=== PATIENT | female | born 1960 | race Caucasian/White ===

== ENCOUNTER → 2016-09-10 11:00 | Day surgery (SDC) | payer BC ==
[~2016-09-10 11:00] MED LIST: Buffered Lidocaine 1% SYR 3ML* 3 ML/SYR SYRINGE INTRADERM ONE; Buffered Lidocaine 1% SYR 3ML* 3 ML/SYR SYRINGE ONE; Dexamethasone TAB* 4 MG ONE; Dexamethasone TAB* 4 MG PO ONE; Famotidine IV* 10 MG/ML 2 ML (20 mg) IV ONE; Famotidine IV* 10 MG/ML 2 ML (20 mg) ONE; HYDROcodone/ACETAMIN 5-325 MG* 1 TAB PO PRN; Lidocaine 2% MPF* 2 ML VIAL ONE; Midazolam* 1 MG/ML 2 ML VIAL (2 MG) ONE; PROCHLORPERAZINE INJ 5 MG/ML 2 ML VIAL IV PRN; Propofol* 10 MG/ML 20 ML BTL IV PUSH ONE; fentaNYL* 50 MCG/ML 2 ML VIAL (100 MCG VIAL) IV PRN; fentaNYL* 50 MCG/ML 2 ML VIAL (100 MCG VIAL) ONE
[2016-09-10 16:21] VITALS: BP 115/86
--- NOTE | 2016-09-11 04:45 | PRO ---
BRONCHOSCOPY REPORT: DATE OF PROCEDURE: 09/10/16 - [facility] PROCEDURE PERFORMED: Bronchoscopy and bronchoalveolar lavage. PREPROCEDURAL DIAGNOSES: Cough, pulmonary secretions, vocal cord paralysis. ANESTHESIA: General anesthesia, LMA. DESCRIPTION OF PROCEDURE: Informed consent was obtained from the patient prior to the procedure after all the risks and benefits of the procedure were thoroughly explained. Appropriate time-out was agreed on by attending staff prior to the procedure. Flexible Pentax bronchoscope was utilized for the procedure. Bronchoscope was inserted through the LMA and vocal cords were inspected. Significant amount of redundant tissue was noted around the vocal cords. There was slit-like opening of the vocal cords. Bronchoscope was then inserted through the vocal cords. The patient noted to have thick secretions within the airway. The patient had audible stridor during the procedure. The patient received Decadron during the procedure. Bronchoalveolar lavage was obtained from the right middle lobe. Thick white secretions were noted and were suctioned out. BAL was sent for microbiological testing. The patient tolerated the procedure well. The patient was seen in recovery in optimal condition. [id number]/[facility] #: [id number] [facility]
== END | disposition home or self-care (01) ==
LOC: MERGE 11:00 → OR 11:00
PROVIDERS: ATTEND Internal Medicine
DX: R05 Cough (principal); J98.8 Other specified respiratory disorders; G47.33 Obstructive sleep apnea (adult) (pediatric); J38.00 Paralysis of vocal cords and larynx, unspecified; Z87.891 Personal history of nicotine dependence
CPT/HCPCS: 87070; 87077; 87102; 87205; J2250; J2704; J3010; J8540

== ENCOUNTER 2016-10-18 16:46 | Emergency (ER) | payer BC ==
[2016-10-18 18:14] LABS: Hematocrit 40 % (35-47); Mean Corpuscular HGB Conc 32 g/dl (31-36); Mean Corpuscular Hemoglobin 27 pg (27-31); Mean Corpuscular Volume 84 fL (80-97); Mean Platelet Volume 8 um3 (7.4-10.4); Red Blood Count 4.76 10^6/ul (4.0-5.4); Red Cell Distribution Width 14 % (10.5-15)
[2016-10-18 18:25] LABS: Albumin 4.5 g/dL (3.2-5.2); BUN/Creatinine Ratio 18.8 (8-20); C Reactive Protein 8.38 mg/L (< 5.00); Calcium 9.7 mg/dL (8.6-10.3); EGFR African American 88.3 (>60); EGFR Non-African American 68.7 (>60); Potassium 3.7 mmol/L (3.5-5.0); Total Bilirubin 0.5 mg/dL (0.2-1.0); Total Protein 7.5 g/dL (6.4-8.9)
[2016-10-18] MEDS ORDERED: Iohexol 300* (CONTRAST) 10 ML SDV IV ONE (20:26)
--- NOTE | 2016-10-18 20:56 | RAD ---
HISTORY: Postop stridor COMPARISONS: April 20, 2015 CTs of the neck and chest TECHNIQUE: Multiple contiguous axial CT scans were obtained of the neck after the administration of nonionic intravenous contrast, with coronal and sagittal multiplanar reformations. FINDINGS: BRAIN AND ORBITS: The visualized brain and orbits are normal. PARANASAL SINUSES: The visualized paranasal sinuses are clear. SALIVARY GLANDS: The parotid glands, submandibular glands, sublingual glands are normal. NASAL CAVITY/NASOPHARYNX: The nasal cavity and nasopharynx are normal. ORAL CAVITY/OROPHARYNX: The oral cavity is obscured by streak artifact from dental amalgam. The visualized oral cavity and oropharynx are unremarkable. LARYNGEAL APPARATUS/HYPOPHARYNX: The patient is appears to be status post thyroplasty, with a prosthesis along the left thyroid cartilage. UPPER AIRWAY/UPPER ESOPHAGUS: In the expected location of the left thyroid lobe, there is heterogeneously low-attenuation soft tissue density material measuring approximately 3 x 4.5 x 5.2 cm in size. This measures approximately 50 Hounsfield units in attenuation. There is mass effect upon the subglottic airway which is narrowed compared to the 2015 examination. LUNG APICES: There is a 0.9 cm nodule of the right upper lobe on axial image 1. This is incompletely included within the [id number] the current examination. This is not clearly visualized on the previous CT examination THYROID GLAND: As noted above, there is heterogeneous low-attenuation tissue within the left thyroid fossa LYMPH NODES: There is a 1.1 cm short axis lymph node at level 4 on the right on axial image 36. VASCULATURE: The vasculature is unremarkable. BONES AND SOFT TISSUES: Degenerative changes are noted of the spine. There is subcutaneous emphysema with postsurgical change along the anterior neck OTHER: None. IMPRESSION: 1. THERE IS POST SURGICAL CHANGE TO THE THYROID CARTILAGE, WITH HETEROGENEOUSLY LOW ATTENUATION SOFT TISSUE WITHIN THE LEFT THYROID FOSSA WITH MASS EFFECT UPON THE SUBGLOTTIC AIRWAY WHICH IS NARROWED. GIVEN THE HISTORY OF STRIDOR AND RECENT SURGERY, THIS CONCERNING FOR HEMATOMA WITH MASS EFFECT UPON THE AIRWAY. PRELIMINARY FINDINGS WERE DISCUSSED WITH DR. NGUYEN IN THE EMERGENCY DEPARTMENT AT APPROXIMATELY 8:50 PM ON OCTOBER 18, 2016. 2. THERE IS A 0.9 CM NODULE OF THE RIGHT LUNG APEX. THIS IS INCOMPLETELY INCLUDED WITHIN THE [id number] THE CURRENT EXAMINATION. THE DIFFERENTIAL INCLUDES NEOPLASM. RECOMMEND CORRELATION WITH DEDICATED IMAGING OF THE CHEST IN THE NONACUTE SETTING. 3. ADDITIONALLY, THERE IS A SLIGHTLY ENLARGED LEVEL 4 LYMPH NODE ON THE RIGHT.
[2016-10-18 21:18] VITALS: BP 150/98
--- NOTE | 2016-10-18 22:12 | ED ---
Jen Barbosa Anna, scribed for Yasir Easton MD on 10/18/16 at 1800 . Shortness of Breath - HPI Summary HPI Summary: Patient is a 56 y/o female coming to [facility] presenting with gradual onset of constant, worsening SOB that began this afternoon. She had a tracheal stenosis three days ago and has had SOB as a result of that, but the SOB was worse this afternoon. Her recent test showed she was 60% blocked. The SOB is exacerbated by lying down, which was not the case prior to today. 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 Onset/Duration: Gradual Onset, Lasting Days, Worse Since - today - Allergy/Home Medications Allergies/Adverse Reactions: Allergies Allergy/AdvReac Type Severity Reaction Status Date / Time No Known Allergies Allergy Verified 09/10/16 11:19 PMH/Surg Hx/FS Hx/Imm Hx Endocrine/Hematology History: Reports: Hx Anemia - HISTORY OF IN THE PAST Denies: Hx Diabetes, Hx Thyroid Disease Cardiovascular History: Reports: Hx Congestive Heart Failure Denies: Hx Hypertension, Hx Pacemaker/ICD, Other Cardiovascular Problems/ Disorders Respiratory History: Reports: Hx Sleep Apnea Denies: Hx Asthma, Hx Chronic Obstructive Pulmonary Disease (COPD), Other Respiratory Problems/Disorders GI History: Denies: Hx Ulcer, Other GI Disorders History: Denies: Hx Renal Disease Musculoskeletal History: Denies: Other Musculoskeletal History Sensory History: Denies: Hx Contacts or Glasses, Hx Hearing Aid Opthamlomology History: Denies: Hx Contacts or Glasses Neurological History: Denies: Other Neuro Impairments/Disorders Psychiatric History: Reports: Hx Anxiety - ON MEDS, Hx Depression - ON MEDS Denies: Hx Panic Disorder - Cancer History Hx Chemotherapy: No Hx Radiation Therapy: No - Surgical History Surgery Procedure, Year, and Place: [facility] [place]. tubal , 1989, [facility]. tubal ligation, 1983 , [facility] [place]. benign breast biopsy left, 1992, [facility]. VOCAL CHORD SURGERY 12/12/15 & - THROPLASTY W/ GORE PATCH. Hx Anesthesia Reactions: No Infectious Disease History: No Infectious Disease History: Denies: Hx Clostridium Difficile, Hx Hepatitis, Hx Human Immunodeficiency Virus (HIV), Hx of Known/Suspected MRSA, Hx Shingles, Hx Tuberculosis, History Other Infectious Disease, Traveled Outside the [place] in Last 30 Days - Family History Known Family History: Positive: Hypertension, Other - breast CA - Social History Lives: With Family Alcohol Use: Rare Alcohol Amount: 1 PER MONTH Substance Use Type: Reports: None Smoking Status (MU): Former Smoker Type: Cigarettes Amount Used/How Often: PACK A DAY Have You Smoked in the Last Year: No Review of Systems Positive: Shortness Of Breath Psychological: Normal All Other Systems Reviewed And Are Negative: Yes Physical Exam Triage Information Reviewed: Yes Vital Signs On Initial Exam: Initial Vitals Temp Pulse Resp BP Pulse Ox 98.2 F 68 24 169/94 98 10/18/16 16:49 10/18/16 16:49 10/18/16 16:49 10/18/16 16:49 10/18/16 16:49 Vital Signs Reviewed: Yes Appearance: Positive: Well-Appearing, No Pain Distress Skin: Positive: Warm, Skin Color Reflects Adequate Perfusion, Dry Head/Face: Positive: Normal Head/Face Inspection Eyes: Positive: Normal ENT: Positive: Normal ENT inspection Neck: Positive: Supple, Nontender Respiratory/Lung Sounds: Positive: Clear to Auscultation, Breath Sounds Present Cardiovascular: Positive: RRR Abdomen Description: Positive: Nontender, Soft Bowel Sounds: Positive: Present Musculoskeletal: Positive: Normal Neurological: Positive: Normal Psychiatric: Positive: Affect/Mood Appropriate - Jamison Coma Scale Coma Scale Total: 15 Diagnostics - Vital Signs Vital Signs Temp Pulse Resp BP Pulse Ox 10/18/16 17:00 74 159/87 95 10/18/16 16:57 74 95 10/18/16 16:56 158/89 10/18/16 16:49 98.2 F 68 24 169/94 98 - Laboratory Lab Results: Lab Results 10/18/16 10/18/16 Range/Units 16:55 16:55 WBC 8.0 (3.5-10.8) 10^3/ul RBC 4.76 (4.0-5.4) 10^6/ul Hgb 13.0 (12.0-16.0) g/dl Hct 40 (35-47) % MCV 84 (80-97) fL MCH 27 (27-31) pg MCHC 32 (31-36) g/dl RDW 14 (10.5-15) % Plt Count 317 (150-450) 10^3/ul MPV 8 (7.4-10.4) um3 Neut % (Auto) 66.4 (38-83) % Lymph % (Auto) 23.7 L (25-47) % [place] % (Auto) 8.6 (1-9) % Eos % (Auto) 0.7 (0-6) % Baso % (Auto) 0.6 (0-2) % Absolute Neuts (auto) 5.3 (1.5-7.7) 10^3/ul Absolute Lymphs (auto) 1.9 (1.0-4.8) 10^3/ul Absolute Monos (auto) 0.7 (0-0.8) 10^3/ul Absolute Eos (auto) 0.1 (0-0.6) 10^3/ul Absolute Basos (auto) 0 (0-0.2) 10^3/ul Absolute Nucleated RBC 0.01 10^3/ul Nucleated RBC % 0.1 Sodium 135 (133-145) mmol/L Potassium 3.7 (3.5-5.0) mmol/L Chloride 97 L (101-111) mmol/L Carbon Dioxide 29 (22-32) mmol/L Anion Gap 9 (2-11) mmol/L BUN 16 (6-24) mg/dL Creatinine 0.85 (0.51-0.95) mg/dL Est GFR ( Amer) 88.3 (>60) Est GFR (Non-Af Amer) 68.7 (>60) BUN/Creatinine Ratio 18.8 (8-20) Glucose 76 (70-100) mg/dL Calcium 9.7 (8.6-10.3) mg/dL Total Bilirubin 0.50 (0.2-1.0) mg/dL AST 13 (13-39) U/L ALT 16 (7-52) U/L Alkaline Phosphatase 64 (34-104) U/L C-Reactive Protein 8.38 H (< 5.00) mg/L Total Protein 7.5 (6.4-8.9) g/dL Albumin 4.5 (3.2-5.2) g/dL Globulin 3.0 (2-4) g/dL Albumin/Globulin Ratio 1.5 (1-3) Result Diagrams: 10/18/16 16:55 10/18/16 16:55 Lab Statement: Any lab studies that have been ordered have been reviewed, and results considered in the medical decision making process. - CT CT Soft Tissue Neck CT Interpretation: Positive (See Comments) CT Interpretation Completed By: Radiologist - IMPRESSION: 1. THERE IS POST SURGICAL CHANGE TO THE THYROID CARTILAGE, WITH HETEROGENEOUSLY LOW ATTENUATION SOFT TISSUE WITHIN THE LEFT THYROID FOSSA WITH MASS EFFECT UPON THE SUBGLOTTIC AIRWAY WHICH IS NARROWED. GIVEN THE HISTORY OF STRIDOR AND RECENT SURGERY, THIS CONCERNING FOR HEMATOMA WITH MASS EFFECT UPON THE AIRWAY. PRELIMINARY FINDINGS WERE DISCUSSED WITH DR. EASTON IN THE EMERGENCY DEPARTMENT AT APPROXIMATELY 8:50 PM ON OCTOBER 18, 2016. 2. THERE IS A 0.9 CM NODULE OF THE RIGHT LUNG APEX. THIS IS INCOMPLETELY INCLUDED WITHIN THE [id number] THE CURRENT EXAMINATION. THE DIFFERENTIAL INCLUDES NEOPLASM. RECOMMEND CORRELATION WITH DEDICATED IMAGING OF THE CHEST IN THE NONACUTE SETTING. 3. ADDITIONALLY, THERE IS A SLIGHTLY ENLARGED LEVEL 4 LYMPH NODE ON THE RIGHT. Re-Evaluation - Re-Evaluation First Eval Re-Evaluation Time: 18:08 Comment: At this time, patient is lying down comfortably and able to speak in full sentences. Course/Dx - Course Assessment/Plan: Patient is a 56 y/o female coming to [facility] presenting with gradual onset of constant, worsening SOB that began this afternoon. She had a tracheal stenosis three days ago and has had SOB as a result of that, but the SOB was worse this afternoon. Her recent test showed she was 60% blocked. The SOB is exacerbated by lying down, which was not the case prior to today. Upon re -evaluation, patient is lying down comfortably and able to speak in complete sentences. Labs reveal C-reactive protein of 8.38. Records requested from [facility]. CT of soft tissue of neck reveals post-surgical change to the thyroid cartilage, with heterogenously low attenuation soft tissue within the left thyroid fossa with mass effect upon the subglottic airway which is narrowed. This is concerning for hematoma with mass effect upon the airway. Discussed care with Dr. Hopkins, who recommends that patient be transferred to a higher level of care. Dr. Tran from [facility] accepts the patient for transfer. - Diagnoses Provider Diagnoses: Postoperative subglottic stenosis - Physician Notifications Discussed Care of Patient With: Dr. Hopkins (ENT) at 2051. The patient should be transferred to a higher level of care. Dr. Tran ([facility]) at 2110. Accepts patient for transfer. Discharge - Discharge Plan Condition: Stable Disposition: TRANS HIGHER LVL OF CARE FAC Referrals: Bhavya Chilel MD [Primary Care Provider] - The documentation as recorded by the Jen bass Anna accurately reflects the service I personally performed and the decisions made by me, Yasir Easton MD.
== END 2016-10-18 22:27 | disposition short-term general hospital (02) ==
LOC: ED 16:46 → MERGE 16:46 → ED 22:27
DX: J95.5 Postprocedural subglottic stenosis (principal); R06.02 Shortness of breath; Z87.891 Personal history of nicotine dependence
CPT/HCPCS: 36415; 70491; 80053; 85025; 86140; 99285; Q9967

== ENCOUNTER 2016-11-25 12:13 | Emergency (ER) | payer BC ==
[2016-11-25] MEDS ORDERED: Aspirin Low Dose CHEW TAB* 81 MG PO ONE (13:13)
[2016-11-25] MEDS ORDERED: Ondansetron INJ* 2 MG/ML VIAL IV ONE (13:14)
[2016-11-25] MEDS ORDERED: NS 0.9% 1000 ML* 1,000 ML IV ONE (13:14)
[2016-11-25] MEDS ORDERED: HYDROmorphone* 1 MG/ML 1 ML SYR IV ONE (13:14)
[2016-11-25 13:22] LABS: Hematocrit 36 % (35-47); Hemoglobin 11.9 g/dl (12.0-16.0); Mean Corpuscular HGB Conc 33 g/dl (31-36); Mean Corpuscular Hemoglobin 27 pg (27-31); Mean Corpuscular Volume 83 fL (80-97); Mean Platelet Volume 8 um3 (7.4-10.4); Red Blood Count 4.33 10^6/ul (4.0-5.4); Red Cell Distribution Width 14 % (10.5-15); White Blood Count 5.3 10^3/ul (3.5-10.8)
[2016-11-25 13:37] LABS: Albumin 4.2 g/dL (3.2-5.2); BUN/Creatinine Ratio 14.9 (8-20); Calcium 9.3 mg/dL (8.6-10.3); EGFR African American 103.7 (>60); EGFR Non-African American 80.6 (>60); Globulin 3.1 g/dL (2-4); Potassium 3.5 mmol/L (3.5-5.0); Total Bilirubin 0.6 mg/dL (0.2-1.0); Total Protein 7.3 g/dL (6.4-8.9)
[2016-11-25] MEDS ORDERED: Iohexol 350* (CONTRAST) 500 ML MDV IV ONE (14:10)
--- NOTE | 2016-11-25 14:50 | RAD ---
HISTORY: Chest pain COMPARISONS: April 20, 2016 TECHNIQUE: Multiple contiguous axial CT scans of the chest were obtained after the administration of nonionic intravenous contrast, timed to the pulmonary arterial phase of contrast enhancement.. Coronal and sagittal multiplanar reformations are also submitted for review. FINDINGS: NECK AND THYROID: A tracheostomy is noted CHEST WALL: There is no lower cervical, axillary, or supraclavicular lymphadenopathy by size criteria. HEART AND PERICARDIUM: The heart is unremarkable. AORTA AND PULMONARY VASCULATURE: There is no pulmonary arterial filling defect to suggest pulmonary embolism. There is no linear filling defect within the aorta to suggest aortic dissection. MEDIASTINUM: There are enlarged subcarinal lymph nodes. MAKAYLA: There are mildly enlarged bilateral hilar lymph nodes AIRWAY AND ESOPHAGUS: As noted above, a tracheostomy is present. LUNG PARENCHYMA: There are multiple pulmonary parenchymal nodules diffusely measuring up to 1.6 cm in size. PLEURA: There is moderate right and small left pleural effusion. UPPER ABDOMEN: The upper abdomen is unremarkable. BONES AND SOFT TISSUES: Degenerative changes are noted OTHER: None. IMPRESSION: 1. NO PULMONARY ARTERIAL FILLING DEFECT TO SUGGEST PULMONARY WAS OBTAINED. 2. THERE ARE MULTIPLE PULMONARY PARENCHYMAL NODULES, WITH HILAR AND MEDIASTINAL LYMPHADENOPATHY. THE APPEARANCE IS MOST CONSISTENT WITH METASTATIC NEOPLASM TO THE LUNGS. 3. THERE ARE BILATERAL, RIGHT GREATER THAN LEFT, PLEURAL EFFUSIONS
[2016-11-25 16:31] VITALS: BP 156/82
--- NOTE | 2016-11-25 18:26 | ED ---
Jen Barbosa Anna, scribed for Yasir Easton MD on 11/25/16 at 1315 . HPI Chest Pain - HPI Summary HPI Summary: Patient is a 56 y/o female coming to [facility] presenting with the sudden onset of constant left-sided chest pain that began last night. The pain starts around her left shoulder blade and extends around her front. The pain is exacerbated by deep breaths, coughing, and exertion. She has SOB at baseline, but it is worse today. She had one episode of emesis last night. She denies fever. Her visiting nurse came today and recommended she come to the ED because of her fast HR. 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 - History of Current Complaint Chief Complaint: EDChestPainROMI Time Seen by Provider: 11/25/16 13:03 Hx Obtained From: Patient Pain Intensity: 4 Pain Scale Used: 0-10 Numeric - Allergy/Home Medications Allergies/Adverse Reactions: Allergies Allergy/AdvReac Type Severity Reaction Status Date / Time No Known Allergies Allergy Verified 09/10/16 11:19 PMH/Surg Hx/FS Hx/Imm Hx Endocrine/Hematology History: Reports: Hx Anemia - HISTORY OF IN THE PAST Denies: Hx Diabetes, Hx Thyroid Disease Cardiovascular History: Reports: Hx Congestive Heart Failure Denies: Hx Hypertension, Hx Pacemaker/ICD, Other Cardiovascular Problems/ Disorders Respiratory History: Reports: Hx Sleep Apnea Denies: Hx Asthma, Hx Chronic Obstructive Pulmonary Disease (COPD), Other Respiratory Problems/Disorders GI History: Denies: Hx Ulcer, Other GI Disorders History: Denies: Hx Renal Disease Musculoskeletal History: Denies: Other Musculoskeletal History Sensory History: Denies: Hx Contacts or Glasses, Hx Hearing Aid Opthamlomology History: Denies: Hx Contacts or Glasses Neurological History: Denies: Other Neuro Impairments/Disorders Psychiatric History: Reports: Hx Anxiety - ON MEDS, Hx Depression - ON MEDS Denies: Hx Panic Disorder - Cancer History Cancer Type, Location and Year: [place] Thyroid tumor Hx Chemotherapy: No Hx Radiation Therapy: No - Surgical History Surgery Procedure, Year, and Place: [facility], [facility]. tubal , 1989, [facility]. tubal ligation, 1983 , [facility]. benign breast biopsy left, 1992, [facility]. VOCAL CHORD SURGERY 12/12/15 & - THROPLASTY W/ GORE PATCH. Hx Anesthesia Reactions: No Infectious Disease History: No Infectious Disease History: Denies: Hx Clostridium Difficile, Hx Hepatitis, Hx Human Immunodeficiency Virus (HIV), Hx of Known/Suspected MRSA, Hx Shingles, Hx Tuberculosis, History Other Infectious Disease, Traveled Outside the [place] in Last 30 Days - Family History Known Family History: Positive: Unknown, Hypertension, Other - breast CA - Social History Alcohol Use: Rare Alcohol Amount: 1 PER MONTH Substance Use Type: Reports: None Smoking Status (MU): Former Smoker Type: Cigarettes Amount Used/How Often: PACK A DAY Have You Smoked in the Last Year: No Review of Systems Positive: Chest Pain Positive: Shortness Of Breath All Other Systems Reviewed And Are Negative: Yes Physical Exam Triage Information Reviewed: Yes Vital Signs On Initial Exam: Initial Vitals Temp Pulse Resp BP Pulse Ox 97.6 F 124 16 164/84 97 11/25/16 12:17 11/25/16 12:17 11/25/16 12:17 11/25/16 12:17 11/25/16 12:17 Vital Signs Reviewed: Yes Appearance: Positive: Well-Appearing, No Pain Distress Skin: Positive: Warm, Skin Color Reflects Adequate Perfusion, Dry Head/Face: Positive: Normal Head/Face Inspection Eyes: Positive: Normal ENT: Positive: Normal ENT inspection Neck: Positive: Supple, Nontender Respiratory/Lung Sounds: Positive: Breath Sounds Present, Other - Crackles in left upper lung field, some upper airway sounds that cleared when she coughed Cardiovascular: Positive: Tachycardia Abdomen Description: Positive: Nontender, Soft Bowel Sounds: Positive: Present Musculoskeletal: Positive: Normal Neurological: Positive: Normal Psychiatric: Positive: Affect/Mood Appropriate - Jamison Coma Scale Coma Scale Total: 15 Diagnostics - Vital Signs Vital Signs Temp Pulse Resp BP Pulse Ox 11/25/16 12:17 97.6 F 124 16 164/84 97 - Laboratory Lab Results: Lab Results 11/25/16 11/25/16 11/25/16 Range/Units 12:35 12:35 12:35 WBC 5.3 (3.5-10.8) 10^3/ul RBC 4.33 (4.0-5.4) 10^6/ul Hgb 11.9 L (12.0-16.0) g/dl Hct 36 (35-47) % MCV 83 (80-97) fL MCH 27 (27-31) pg MCHC 33 (31-36) g/dl RDW 14 (10.5-15) % Plt Count 198 (150-450) 10^3/ul MPV 8 (7.4-10.4) um3 Neut % (Auto) 79.4 (38-83) % Lymph % (Auto) 12.0 L (25-47) % [place] % (Auto) 7.7 (1-9) % Eos % (Auto) 0.4 (0-6) % Baso % (Auto) 0.5 (0-2) % Absolute Neuts (auto) 4.2 (1.5-7.7) 10^3/ul Absolute Lymphs (auto) 0.6 L (1.0-4.8) 10^3/ul Absolute Monos (auto) 0.4 (0-0.8) 10^3/ul Absolute Eos (auto) 0 (0-0.6) 10^3/ul Absolute Basos (auto) 0 (0-0.2) 10^3/ul Absolute Nucleated RBC 0 10^3/ul Nucleated RBC % 0 INR (Anticoag Therapy) 1.01 (0.89-1.11) Sodium 136 (133-145) mmol/L Potassium 3.5 (3.5-5.0) mmol/L Chloride 99 L (101-111) mmol/L Carbon Dioxide 27 (22-32) mmol/L Anion Gap 10 (2-11) mmol/L BUN 11 (6-24) mg/dL Creatinine 0.74 (0.51-0.95) mg/dL Est GFR ( Amer) 103.7 (>60) Est GFR (Non-Af Amer) 80.6 (>60) BUN/Creatinine Ratio 14.9 (8-20) Glucose 141 H (70-100) mg/dL Lactic Acid (0.5-2.0) mmol/L Calcium 9.3 (8.6-10.3) mg/dL Total Bilirubin 0.60 (0.2-1.0) mg/dL AST 15 (13-39) U/L ALT 22 (7-52) U/L Alkaline Phosphatase 100 (34-104) U/L Troponin I 0.00 (<0.04) ng/mL Total Protein 7.3 (6.4-8.9) g/dL Albumin 4.2 (3.2-5.2) g/dL Globulin 3.1 (2-4) g/dL Albumin/Globulin Ratio 1.4 (1-3) 11/25/16 11/25/16 Range/Units 12:35 16:25 WBC (3.5-10.8) 10^3/ul RBC (4.0-5.4) 10^6/ul Hgb (12.0-16.0) g/dl Hct (35-47) % MCV (80-97) fL MCH (27-31) pg MCHC (31-36) g/dl RDW (10.5-15) % Plt Count (150-450) 10^3/ul MPV (7.4-10.4) um3 Neut % (Auto) (38-83) % Lymph % (Auto) (25-47) % [place] % (Auto) (1-9) % Eos % (Auto) (0-6) % Baso % (Auto) (0-2) % Absolute Neuts (auto) (1.5-7.7) 10^3/ul Absolute Lymphs (auto) (1.0-4.8) 10^3/ul Absolute Monos (auto) (0-0.8) 10^3/ul Absolute Eos (auto) (0-0.6) 10^3/ul Absolute Basos (auto) (0-0.2) 10^3/ul Absolute Nucleated RBC 10^3/ul Nucleated RBC % INR (Anticoag Therapy) (0.89-1.11) Sodium (133-145) mmol/L Potassium (3.5-5.0) mmol/L Chloride (101-111) mmol/L Carbon Dioxide (22-32) mmol/L Anion Gap (2-11) mmol/L BUN (6-24) mg/dL Creatinine (0.51-0.95) mg/dL Est GFR ( Amer) (>60) Est GFR (Non-Af Amer) (>60) BUN/Creatinine Ratio (8-20) Glucose (70-100) mg/dL Lactic Acid 2.6 H* (0.5-2.0) mmol/L Calcium (8.6-10.3) mg/dL Total Bilirubin (0.2-1.0) mg/dL AST (13-39) U/L ALT (7-52) U/L Alkaline Phosphatase (34-104) U/L Troponin I 0.00 (<0.04) ng/mL Total Protein (6.4-8.9) g/dL Albumin (3.2-5.2) g/dL Globulin (2-4) g/dL Albumin/Globulin Ratio (1-3) Result Diagrams: 11/25/16 12:35 11/25/16 12:35 Lab Statement: Any lab studies that have been ordered have been reviewed, and results considered in the medical decision making process. - CT Chest CTA CT Interpretation: Positive (See Comments) CT Interpretation Completed By: Radiologist - IMPRESSION: 1. NO PULMONARY ARTERIAL FILLING DEFECT TO SUGGEST PULMONARY WAS OBTAINED. 2. THERE ARE MULTIPLE PULMONARY PARENCHYMAL NODULES, WITH HILAR AND MEDIASTINAL LYMPHADENOPATHY. THE APPEARANCE IS MOST CONSISTENT WITH METASTATIC NEOPLASM TO THE LUNGS. 3. THERE ARE BILATERAL, RIGHT GREATER THAN LEFT, PLEURAL EFFUSIONS - EKG 1225 Cardiac Rate: Tachycardia - 120 bpm EKG Rhythm: Sinus Rhythm ST Segment: Non-Specific - Diffuse non-specific t-wave changes Ectopy: None Re-Evaluation - Re-Evaluation First Eval Re-Evaluation Time: 16:15 Comment: Discussed results and plan of care with patient. Patient agrees with plan. Chest Pain Course/Dx - Course Course Of Treatment: Ms. Conn presented with sob and a pleuritic left-sided chest pain onset yesterday. She gets SOB with exertion. 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 A CTA was obtained and was negative for PE but did show bilateral nodules and pleural effusions. She has an appointment next week with her oncologist and I encouraged her to F/U or return if her breathing got worse. - Diagnoses Provider Diagnoses: Pleural effusion Discharge - Discharge Plan Condition: Stable Disposition: HOME Patient Education Materials: Pleural Effusion (ED) Referrals: García James [Other] Bhavya Chilel MD [Primary Care Provider] - Additional Instructions: Follow up with Dr. James within 48 hours. Return to the emergency department for any new or worsening symptoms. The documentation as recorded by the Jen bassAsha accurately reflects the service I personally performed and the decisions made by me, Yasir Easton MD.
== END 2016-11-25 16:30 | disposition home or self-care (01) ==
LOC: MERGE 12:13 → ED 12:13
DX: J90 Pleural effusion, not elsewhere classified (principal); R07.9 Chest pain, unspecified; R06.02 Shortness of breath; Z87.891 Personal history of nicotine dependence
CPT/HCPCS: 36415; 71275; 80053; 83605; 84484; 85025; 85610; 93005; 96374; 96375; 99283; A9270-GY; J1170; J2405; Q9967

== ENCOUNTER 2017-03-13 12:00 | Inpatient (IN) | payer BC ==
--- NOTE | 2017-03-13 12:57 | RAD ---
INDICATION: Short of breath COMPARISON: December 24, 2016 TECHNIQUE: PA and lateral dual-energy views were obtained. FINDINGS: Bones/Soft Tissues: There are no acute bony findings. Cardiomediastinal: The heart is normal in size. Lungs: There are interstitial and alveolar changes in in the right middle lobe and/or lingula. Pleura: Small bilateral pleural effusions. Small amount of fluid in the minor fissures.. Other: None IMPRESSION: SUSPECT MILD INTERSTITIAL CONGESTION. NO SIGNIFICANT INTERVAL CHANGES.
[2017-03-13 13:01] LABS: Hematocrit 28 % (35-47); Hemoglobin 9.1 g/dl (12.0-16.0); Mean Corpuscular HGB Conc 33 g/dl (31-36); Mean Corpuscular Hemoglobin 27 pg (27-31); Mean Corpuscular Volume 82 fL (80-97); Mean Platelet Volume 7 um3 (7.4-10.4); Red Cell Distribution Width 25 % (10.5-15)
[2017-03-13 13:17] LABS: Albumin 3.5 g/dL (3.2-5.2); BUN/Creatinine Ratio 11.9 (8-20); C Reactive Protein 151.51 mg/L (< 5.00); Calcium 9.3 mg/dL (8.6-10.3); EGFR African American 116.3 (>60); EGFR Non-African American 90.4 (>60); Globulin 3.2 g/dL (2-4); Potassium 3.4 mmol/L (3.5-5.0); Total Bilirubin 0.7 mg/dL (0.2-1.0); Total Protein 6.7 g/dL (6.4-8.9)
[2017-03-13 13:21] LABS: Comments Flag Yes
[2017-03-13 13:22] LABS: White Blood Count 2.7 10^3/ul (3.5-10.8)
[2017-03-13] MEDS ORDERED: NS 0.9% 1000 ML*IV.FLUID IV ONE (14:21)
[2017-03-13] MEDS ORDERED: cefTRIAXone(*) 1 GM in NS 0.9% 50 ML* 50 ML IVPB ONE (15:23)
[2017-03-13] MEDS ORDERED: Albuterol 2.5 MG/3 ML NEB.SOL* (0.083%) INH PRN (15:41)
[2017-03-13] MEDS ORDERED: NS 0.9% 1000 ML* 1,000 ML IV SCH (15:45)
[2017-03-13] MEDS: oxyCODONE TAB* 5 MG TAB PO PRN ×2 (15:51→19:55)
[2017-03-13] MEDS ORDERED: oxyCODONE TAB* 5 MG TAB ONE (15:51)
[2017-03-13] MEDS ORDERED: Potassium Chloride LIQUID* 20 MEQ PACKET PO ONE (16:00)
[2017-03-13] MEDS ORDERED: Iohexol 350* (CONTRAST) 500 ML MDV IV ONE (16:09)
--- NOTE | 2017-03-13 16:27 | ED ---
Ruperto Barbosa Auryana, scribed for Jarvis Laboy MD on 03/13/17 at 1248 . Shortness of Breath - HPI Summary HPI Summary: 56 year old female presents to the ED for SOB since yesterday. Patient reports chronic SOB, worsening during this episode. She also reports a productive cough. She denies any fever or chest pain. Patient is s/p immunotherapy for cancer of unknown type and is being treated with Pembrolizumab. She is being followed by Dr. Mcclendon, oncology. Patient is on 3 L oxygen during exertion and sleeping at baseline. PMHx is significant for CHF and sleep apnea. Patient is a former smoker. - History of Current Complaint Chief Complaint: EDShortnessOfBreath Time Seen by Provider: 03/13/17 12:08 Hx Obtained From: Patient Onset/Duration: Gradual Onset, Lasting Hours Timing: Constant Current Severity: Moderate Dyspnea At: Rest Associated Signs & Symptoms: Cough (Productive) Related History: Similar Episode - Chronic SOB, worsening with this episode - Risk Factors Pulmonary Embolism: Smoking - former smoker - Allergy/Home Medications Allergies/Adverse Reactions: Allergies Allergy/AdvReac Type Severity Reaction Status Date / Time No Known Allergies Allergy Verified 12/24/16 12:15 Home Medications: Home Medications Hydrocodone Polistirex-Chlorph [Tussionex Pennkinetic Ext 10-8 mg/5Ml] 5 ml PO Q12HR PRN 03/13/17 [History Confirmed 03/13/17] Ibuprofen TAB* [Advil TAB*] 400 mg PO Q6H PRN 03/13/17 [History Confirmed ] OXcarbazepine TAB(*) [Trileptal 300 mg TAB(*)] 300 mg PO BID 03/13/17 [History Confirmed 03/13/17] PMH/Surg Hx/FS Hx/Imm Hx Endocrine/Hematology History: Reports: Hx Anemia - HISTORY OF IN THE PAST Denies: Hx Diabetes, Hx Thyroid Disease Cardiovascular History: Reports: Hx Congestive Heart Failure Denies: Hx Hypertension, Hx Pacemaker/ICD, Other Cardiovascular Problems/ Disorders Respiratory History: Reports: Hx Sleep Apnea Denies: Hx Asthma, Hx Chronic Obstructive Pulmonary Disease (COPD), Other Respiratory Problems/Disorders GI History: Denies: Hx Ulcer, Other GI Disorders History: Denies: Hx Renal Disease Musculoskeletal History: Denies: Other Musculoskeletal History Sensory History: Denies: Hx Contacts or Glasses, Hx Hearing Aid Opthamlomology History: Denies: Hx Contacts or Glasses Neurological History: Denies: Other Neuro Impairments/Disorders Psychiatric History: Reports: Hx Anxiety - ON MEDS, Hx Depression - ON MEDS Denies: Hx Panic Disorder - Cancer History Cancer Type, Location and Year: [place] Thyroid tumor Hx Chemotherapy: No Hx Radiation Therapy: No - Surgical History Surgery Procedure, Year, and Place: hysterectomy, 1998, [facility] [place]. tubal , 1989, [facility]. tubal ligation, 1983 , [facility] [place] benign breast biopsy left, 1992, [facility] SURGERY 12/12/15 & - THROPLASTY W/ GORE PATCH. Hx Anesthesia Reactions: No Infectious Disease History: Denies: Hx Clostridium Difficile, Hx Hepatitis, Hx Human Immunodeficiency Virus (HIV), Hx of Known/Suspected MRSA, Hx Shingles, Hx Tuberculosis, History Other Infectious Disease, Traveled Outside the in Last 30 Days - Family History Known Family History: Positive: Unknown, Hypertension, Other - breast CA - Social History Alcohol Use: Occasionally Alcohol Amount: 1 PER MONTH Substance Use Type: Reports: None Smoking Status (MU): Former Smoker Type: Cigarettes Amount Used/How Often: PACK A DAY Have You Smoked in the Last Year: No Review of Systems Constitutional: Negative Negative: Fever Eyes: Negative ENT: Negative Cardiovascular: Negative Negative: Chest Pain Positive: Shortness Of Breath, Cough - productive Gastrointestinal: Negative Genitourinary: Negative Musculoskeletal: Negative Skin: Negative Neurological: Negative Psychological: Normal All Other Systems Reviewed And Are Negative: Yes Physical Exam - Summary Physical Exam Summary: VITAL SIGNS: Reviewed. GENERAL: Patient is a well-developed and nourished FEMALE who is lying comfortable in the stretcher. Patient is not in any acute respiratory distress. HEAD AND FACE: No signs of trauma. No ecchymosis, hematomas or skull depressions. No sinus tenderness. EYES: PERRLA, EOMI x 2, No injected conjunctiva, no nystagmus. EARS: Hearing grossly intact. Ear canals and tympanic membranes are within normal limits. MOUTH: Oropharynx within normal limits. NECK: Supple, trachea is midline, no adenopathy, no JVD, no carotid bruit, no c- spine tenderness, neck with full ROM. Tracheostomy present. CHEST: Symmetric, no tenderness at palpation LUNGS: Clear to auscultation bilaterally. No wheezing or crackles. CVS: Regular rate and rhythm, S1 and S2 present, no murmurs or gallops appreciated. ABDOMEN: Soft, non-tender. No signs of distention. No rebound no guarding, and no masses palpated. Bowel sounds are normal. EXTREMITIES: FROM in all major joints, no edema, no cyanosis or clubbing. NEURO: Alert and oriented x 3. No acute neurological deficits. Speech is normal and follows commands. SKIN: Dry and warm. Triage Information Reviewed: Yes Vital Signs On Initial Exam: Initial Vitals Temp Pulse Resp BP Pulse Ox 98.3 F 98 24 115/66 89 03/13/17 12:03 03/13/17 12:03 03/13/17 12:03 03/13/17 12:03 03/13/17 12:03 Vital Signs Reviewed: Yes Diagnostics - Vital Signs Vital Signs Temp Pulse Resp BP Pulse Ox 03/13/17 12:03 98.3 F 98 24 115/66 89 - Laboratory Lab Results: Lab Results 03/13/17 03/13/17 03/13/17 Range/Units 12:48 12:48 12:48 WBC 2.7 L (3.5-10.8) 10^3/ul RBC 3.40 L (4.0-5.4) 10^6/ul Hgb 9.1 L (12.0-16.0) g/dl Hct 28 L (35-47) % MCV 82 (80-97) fL MCH 27 (27-31) pg MCHC 33 (31-36) g/dl RDW 25 H (10.5-15) % Plt Count 272 (150-450) 10^3/ul MPV 7 L (7.4-10.4) um3 Neut % (Auto) 63.2 (38-83) % Lymph % (Auto) 20.3 L (25-47) % [place] % (Auto) 14.3 H (1-9) % Eos % (Auto) 1.5 (0-6) % Baso % (Auto) 0.7 (0-2) % Absolute Neuts (auto) 1.7 (1.5-7.7) 10^3/ul Absolute Lymphs (auto) 0.5 L (1.0-4.8) 10^3/ul Absolute Monos (auto) 0.4 (0-0.8) 10^3/ul Absolute Eos (auto) 0 (0-0.6) 10^3/ul Absolute Basos (auto) 0 (0-0.2) 10^3/ul Absolute Nucleated RBC 0 10^3/ul Nucleated RBC % 0 APTT (26.0-36.3) seconds Sodium 134 (133-145) mmol/L Potassium 3.4 L (3.5-5.0) mmol/L Chloride 97 L (101-111) mmol/L Carbon Dioxide 30 (22-32) mmol/L Anion Gap 7 (2-11) mmol/L BUN 8 (6-24) mg/dL Creatinine 0.67 (0.51-0.95) mg/dL Est GFR ( Amer) 116.3 (>60) Est GFR (Non-Af Amer) 90.4 (>60) BUN/Creatinine Ratio 11.9 (8-20) Glucose 108 H (70-100) mg/dL Lactic Acid 0.6 (0.5-2.0) mmol/L Calcium 9.3 (8.6-10.3) mg/dL Total Bilirubin 0.70 (0.2-1.0) mg/dL AST 27 (13-39) U/L ALT 22 (7-52) U/L Alkaline Phosphatase 78 (34-104) U/L Total Creatine Kinase 26 (10-223) U/L CK-MB (CK-2) 0.8 (0.6-6.3) ng/mL Troponin I 0.00 (<0.04) ng/mL C-Reactive Protein 151.51 H (< 5.00) mg/L B-Natriuretic Peptide ( - 100) pg/mL Total Protein 6.7 (6.4-8.9) g/dL Albumin 3.5 (3.2-5.2) g/dL Globulin 3.2 (2-4) g/dL Albumin/Globulin Ratio 1.1 (1-3) 03/13/17 03/13/17 Range/Units 12:48 12:48 WBC (3.5-10.8) 10^3/ul RBC (4.0-5.4) 10^6/ul Hgb (12.0-16.0) g/dl Hct (35-47) % MCV (80-97) fL MCH (27-31) pg MCHC (31-36) g/dl RDW (10.5-15) % Plt Count (150-450) 10^3/ul MPV (7.4-10.4) um3 Neut % (Auto) (38-83) % Lymph % (Auto) (25-47) % Ventura % (Auto) (1-9) % Eos % (Auto) (0-6) % Baso % (Auto) (0-2) % Absolute Neuts (auto) (1.5-7.7) 10^3/ul Absolute Lymphs (auto) (1.0-4.8) 10^3/ul Absolute Monos (auto) (0-0.8) 10^3/ul Absolute Eos (auto) (0-0.6) 10^3/ul Absolute Basos (auto) (0-0.2) 10^3/ul Absolute Nucleated RBC 10^3/ul Nucleated RBC % APTT 43.5 H (26.0-36.3) seconds Sodium (133-145) mmol/L Potassium (3.5-5.0) mmol/L Chloride (101-111) mmol/L Carbon Dioxide (22-32) mmol/L Anion Gap (2-11) mmol/L BUN (6-24) mg/dL Creatinine (0.51-0.95) mg/dL Est GFR ( Amer) (>60) Est GFR (Non-Af Amer) (>60) BUN/Creatinine Ratio (8-20) Glucose (70-100) mg/dL Lactic Acid (0.5-2.0) mmol/L Calcium (8.6-10.3) mg/dL Total Bilirubin (0.2-1.0) mg/dL AST (13-39) U/L ALT (7-52) U/L Alkaline Phosphatase (34-104) U/L Total Creatine Kinase (10-223) U/L CK-MB (CK-2) (0.6-6.3) ng/mL Troponin I (<0.04) ng/mL C-Reactive Protein (< 5.00) mg/L B-Natriuretic Peptide 23 ( - 100) pg/mL Total Protein (6.4-8.9) g/dL Albumin (3.2-5.2) g/dL Globulin (2-4) g/dL Albumin/Globulin Ratio (1-3) Result Diagrams: 03/13/17 12:48 03/13/17 12:48 Lab Statement: Any lab studies that have been ordered have been reviewed, and results considered in the medical decision making process. - Radiology CXR Xray Interpretation: Positive (See Comments) - IMPRESSION: SUSPECT MILD INTERSTITIAL CONGESTION. NO SIGNIFICANT INTERVAL CHANGES. Radiology Interpretation Completed By: Radiologist - EKG 13:15 EKG Interpretation: Sinus rhythm at [address] elevation. Diffuse T wave abnormalities. Course/Dx - Course Assessment/Plan: 56 year old female presents to the ED for SOB since yesterday. Patient reports chronic SOB, worsening during this episode. She also reports a productive cough. She denies any fever or chest pain. Patient is s/p immunotherapy for cancer of unknown type and is being treated with Pembrolizumab. She is being followed by Dr. Mcclendon, oncology. Patient is on 3 L oxygen during exertion and sleeping at baseline. PMHx is significant for CHF and sleep apnea. Patient is a former smoker. In the ED course an IV access was obtained. Patient was placed in a surface supply breathing apparatus. Patient was started with IV fluids. PMH: Malignant tumor of the Thyroid gland. Vocal cord palsy. Obstructive sleep apnea. Benign neoplasm of cerebral meninges. Hyperlipidemia. CHF. Depression. Anxiety. Labs within normal limits except for acute on chronic anemia, K 3.4, glucose 108, CRP 151. Troponin #1: 0.00. EKG shows a NSR at 91 BPM w/o ST elevations. CXR impression: Suspect mild interstitial congestion. No significant interval changes. In the ED course BP decrease and she was given 1 L NS bolus eventhught patient has Hx of CHF. She is having more cough. I will cover with Rocephin. Ipaged Dr. Mcclendon but no response. I discussed the case with Mr. Ball and he discussed the case with Dr. Bryant and accepted patient for admission. Patient is A+O x 3. - Diagnoses Differential Diagnosis/HQI/PQRI: Positive: Bronchitis, CHF, Pneumonia Provider Diagnoses: Dyspnea, Hypotension, Cough - Physician Notifications Discussed Care of Patient With: Osbaldo Ball Time Discussed With Above Provider: 15:46 - agrees to admit Instructed by Provider To: Admit As Inpatient Discharge - Discharge Plan Condition: Stable Disposition: ADMITTED TO [facility] The documentation as recorded by the Ruperto bass Auryana accurately reflects the service I personally performed and the decisions made by , Jarvis Laboy MD.
--- NOTE | 2017-03-13 17:05 | RAD ---
INDICATION: Cough and shortness of breath COMPARISON: CTA chest November 25, 2016 TECHNIQUE: Axial source images were acquired following the administration of 80 mL Omnipaque [address] angiographic technique. Coronal and sagittal reconstructed images were constructed and reviewed. FINDINGS: There there are no filling defects in the pulmonary arteries to indicate acute pulmonary embolic disease. There is bilateral thickening of the pleura. There is no large pleural effusion. There is intralobular septal thickening and diffuse groundglass opacification. There is more focal patchy infiltrate in the medial aspect of the right upper lobe (image 83 of 256). The heart is normal in size. There is no evidence of pericardial effusion. There is no evidence of aortic aneurysm or dissection. Confluent with pleura and septal soft tissue thickening, there is soft tissue density at the right hilum measuring 2.2 x 3.3 cm in the axial plane. The visualized osseous structures appear normal. Limited views of the upper abdomen show no abnormalities. IMPRESSION: 1. No CT of evidence of pulmonary embolism. 2. Relative to the previous CT of the chest dated November 25, 2016, there has been circumferential thickening of the bilateral pleura as well as soft tissue nodularity along the bilateral fissures. In addition there is been mild interlobular thickening and patchy groundglass opacification. At the right hilum there is a more focal area of soft tissue measuring 2.2 x 3.3 cm possibly representing a pulmonary mass or right hilar lymph nodes. These findings are nonspecific but etiologies include neoplasm, potentially mesothelioma or interstitial lung disease.
[2017-03-13] MEDS: Azithromycin IV(*) 500 MG in NS 0.9% 250 ML* 250 ML IVPB SCH (17:48)
[2017-03-13] MEDS: Atorvastatin* 20 MG TAB PO SCH (17:48)
[2017-03-13] MEDS ORDERED: Cefepime(*) 2 GM in NS 0.9% 50 ML* 50 ML IVPB SCH (18:00)
[2017-03-13] MEDS: Ondansetron INJ* 2 MG/ML VIAL IV PRN (18:30)
[2017-03-13] MEDS: Acetaminophen TAB* 325 MG PO PRN (20:52)
[2017-03-13] MEDS: OXcarbazepine TAB(*) 300 MG PO SCH (20:52)
[2017-03-13] MEDS: Cefepime(*) 2 GM in NS 0.9% 50 ML* 50 ML IVPB SCH (20:53)
[2017-03-13 20:57] LABS: Urine Bilirubin Negative (Negative); Urine Glucose Negative (Negative); Urine Nitrite Negative (Negative)
[2017-03-13] MEDS: Heparin VIAL(*) 5000 UNITS/ML VIAL (FIVE THOUSAND) SUBCUT SCH (22:06)
[2017-03-13] MEDS: clonazePAM TAB(*) 0.5 MG PO PRN (22:06)
[2017-03-13] MEDS: guaiFENesin/CODIEN 100MG-10MG* 5 ML UDC PO PRN (22:11)
--- NOTE | 2017-03-14 00:33 | HP ---
CC: Dr. Bhavya Chilel * HISTORY AND PHYSICAL: DATE OF ADMISSION: 03/13/17 PRIMARY CARE PROVIDER: Dr. Bhavya Chilel. ATTENDING PHYSICIAN WHILE IN THE HOSPITAL: Maikol Tello MD * (report dictated by Osbaldo Ball NP) CHIEF COMPLAINT: 1. Cough 2. Shortness of breath. HISTORY OF PRESENT ILLNESS: Ms. Conn is a 56-year-old female patient that presents to our emergency department today with complaints of cough, shortness of breath. She had a fever last night of 102.2. She recently underwent immunotherapy for thyroid cancer. She had Keytruda according to the patient. She was told by her primary oncologist who is located in the [facility], Dr. Mcclendon, who we have been unable to contact, said that if she were to feel short of breath, she should go to the ER, which she did. She does state though over the 2 days leading up to her immunotherapy, she was not feeling good. She had felt nauseous. She had vomited once. She had been coughing more, bringing up some more sputum that has been yellowish and blood tinged at times which she says is not unusual for her. She does have significant radiation. She has significant inflammation of her throat secondary to radiation treatment and she has been coughing blood since then at times and mostly blood-tinged sputum she says. She did admit to having a fever last night of 102.2 at home. She denies any having any chest pain. She says it hurts to take a deep breath. She denies having any abdominal discomfort. She denied having any recent change in medications. She was concerned though because of the shortness of breath and she follows her physician's instructions. So, she came in, was evaluated here in the ED. It was noted that her white count was slightly low at 2.7. In addition to this, it was also noted that she was hypotensive when she came in here, but was responsive to fluids. Her blood pressure was in the 70s and now and after a liter of fluids, she is 108/84. She states she is feeling better. She does state that her appetite has not been good over the last couple of days. Because of these findings of hypotension and the cough, we were asked to evaluate for admission. PAST MEDICAL HISTORY: Significant for: 1. Thyroid cancer. 2. Vocal cord palsy. 3. JAISON. 4. Benign neoplasm of the meninges. 5. Anxiety. 6. Hyperlipidemia. PAST SURGICAL HISTORY: 1. She has had a hysterectomy. 2. Tubal ligation. 3. She has had a tracheostomy done about 5 months ago. 4. Thyroid surgery x2. HOME MEDICATIONS: According to the list that they provided includes: 1. Oxycodone 5 mg every 4 hours as needed. 2. Klonopin 0.5 mg p.o. at bedtime as needed. 3. Trileptal 300 mg p.o. b.i.d. 4. Ibuprofen 400 mg p.o. every 6 hours as needed. 5. Tussionex 5 cc p.o. every 12 hours as needed. 6. Prozac 40 mg p.o. daily. 7. Benadryl 12.5 mg p.o. at bedtime as needed. 8. Lipitor 20 mg p.o. daily. ALLERGIES TO MEDICATIONS: Include no known drug allergies. FAMILY HISTORY: Mother had a history of heart disease. Father had a history of cirrhosis. SOCIAL HISTORY: She is a former smoker. She quit about 10 years ago. She does not drink alcohol. She is . Surrogate decision maker is her , [place]. REVIEW OF SYSTEMS: There is no documented fever at home. She denied having any significant weight change. There was no double vision. There is no ear discharge. She denied having any rhinorrhea. There was sore throat. There is no thyroid enlargement. She denied any chest pain. There has been a cough that has been productive of a mucopurulent-type sputum. There was one episode of nausea and vomiting. No dysuria, no frequency. No loss of conscious. No seizures. No pruritus and no skin ulcerations. Review of 14 systems completed , all others negative. PHYSICAL EXAMINATION GENERAL: At this time, Ms. Conn is a 56-year-old female patient. She is sitting in the ER stretcher. She does not appear to be in any acute distress. VITAL SIGNS: Blood pressure 108/84, pulse 96, respirations 22, O2 sat 100%, temperature 99.5. HEENT: Head is atraumatic, normocephalic. Eyes: EOMs are intact. Sclerae anicteric and not pale. Throat: Oral mucosa appears to be moist. There was no oropharyngeal erythema. NECK: Supple. LUNGS: Diminished in the bases. She had equal diaphragmatic expansion. HEART: Sounds S1, S2. Regular rate and rhythm. No murmurs, rubs or gallops. ABDOMEN: Soft, flat, nontender. Bowel sounds present. EXTREMITIES: Pulses 2+ throughout. No peripheral edema. Able to move all 4 extremities with 5/5 strength. NEUROLOGIC: The patient is awake, alert. She is oriented x3. Tongue midline. Tree Specialist were equal. No gross focal deficits. SKIN: Intact. LABORATORY DATA: Labs revealed a WBC of 2.7, RBC of 3.40, hemoglobin 9.1, hematocrit 28, platelet count of 272. PTT was 43.5. Sodium was 134, potassium 3.4, chloride of 97, bicarb of 30, BUN 8, creatinine 0.67, glucose of 108, lactic 0.6, calcium 9.3, total bilirubin 0.7, AST 27, ALT 22, alk phos 78, CK 26 , CK-MB 0.8, troponin of 0, CRP of 151. BNP of 23. Albumin was 3.5. There was a chest x- ray obtained today, which revealed suspect mild interstitial congestion, no significant interval changes. There was an EKG obtained today, which revealed normal sinus rhythm at the rate of 91. No ST elevations or T- wave inversions were noted. Old medical records were reviewed. ASSESSMENT AND PLAN: Ms. Conn is a 56-year-old female patient coming in to the ER today with complaints of cough, sore throat, not feeling well and fever. She will be admitted under observation status for: 1. Cough. I am concerned that she may be developing underlying pneumonia. She did have a pneumonia 2 weeks ago. She had a fever of 102. She is immunocompromised. She is showing early signs of sepsis in the sense that she has an elevated heart rate right around the 90s. Her white count is 2.7. The plan is to panculture her, get a Legionella antigen, strep pneumo antigen. I am actually going to get a CTA of the chest because of the shortness of breath. Did touch base with Oncology people and they felt that the immunotherapy medication could cause pneumonitis although this is pretty early as she just had it done yesterday. Would also like to rule out a pulmonary embolus as well , but I think getting a sputum culture is appropriate and panculturing her. I am going to put her on cefepime to cover pseudomonas. In addition to this, place her on azithromycin to cover atypicals and we will continue to follow. 2. Thyroid cancer. Follow with her primary oncologist. 3. Vocal cord palsy, she has a tracheostomy and again we will follow with her ENT. 4. Obstructive sleep apnea. She . 5. Benign neoplasm of her meninges, follow with her primary. 6. Anxiety, continue with supportive care. 7. Hyperlipidemia, continue her atorvastatin. 8. Radiation-related pharyngitis. She does not have lot of erythema at this point, but we will continue with p.r.n. oxycodone that she has been taking for pain control. 9. DVT prophylaxis, she is high risk, she will be placed on heparin subcu. 10. Code status: Full code. 11. Fluids, electrolytes and nutrition. She can have a regular diet. TIME SPENT: Time spent on the admission 60 minutes, greater than half time spent [id number] with the patient obtaining my history and physical, other half time spent going over the plan of care with the patient and implementing the plan of care. I did discuss the plan of care with my attending, Dr. Tello, who is in agreement. OSBALDO BALL, BURKE [id number]/[facility] #: [id number] MTDHarsh
[2017-03-14] MEDS: oxyCODONE TAB* 5 MG TAB PO PRN ×6 (01:10→22:15)
[2017-03-14] MEDS: Acetaminophen TAB* 325 MG PO PRN ×2 (05:12→22:19)
[2017-03-14] MEDS: Heparin VIAL(*) 5000 UNITS/ML VIAL (FIVE THOUSAND) SUBCUT SCH ×3 (05:13→22:15)
[2017-03-14 06:47] LABS: Hematocrit 26 % (35-47); Hemoglobin 8.6 g/dl (12.0-16.0); Mean Corpuscular HGB Conc 33 g/dl (31-36); Mean Corpuscular Hemoglobin 28 pg (27-31); Mean Corpuscular Volume 84 fL (80-97); Mean Platelet Volume 7 um3 (7.4-10.4)
[2017-03-14 06:49] LABS: Comments Flag Yes; White Blood Count 2.9 10^3/ul (3.5-10.8)
[2017-03-14 06:50] LABS: Red Cell Distribution Width 24 % (10.5-15)
[2017-03-14 06:56] LABS: Calcium 8.7 mg/dL (8.6-10.3); EGFR African American 116.3 (>60); EGFR Non-African American 90.4 (>60); Potassium 4.1 mmol/L (3.5-5.0)
[2017-03-14] MEDS: OXcarbazepine TAB(*) 300 MG PO SCH ×2 (08:51→22:14)
[2017-03-14] MEDS: FLUoxetine CAP* 20 MG PO SCH (08:51)
[2017-03-14] MEDS: Cefepime(*) 2 GM in NS 0.9% 50 ML* 50 ML IVPB SCH ×2 (08:52→21:11)
--- NOTE | 2017-03-14 09:38 | PN ---
Subjective Date of Service: 03/14/17 Interval History: This is a 56 yo female with an unspecified thyroid malignancy for which she is being treated at [facility] as well as vocal cord paralysis with a tracheostomy in place. She was admitted yesterday with concern for a PNA. Patient underwent her first treatment with Keytruda 03/12 (day prior to admission ), but reports that she was starting to feel ill a couple of days prior. Her appetite has been poor with a productive cough, dyspnea and fever. Patient was empirically started on Cefepime and azithromycin at admission for Pseudomonal and atypical coverage. As mentioned above, patient receives her oncology care at [facility], and reports that she was diagnosed in August. Initial diagnosis was this was is a thyroid malignancy, but patient states that confirmatory testing made it less clear and she has been classified as an "unknown". She was treated with chemo and radiation, ending 3 weeks ago. She is unsure which drugs were used for her chemotherapy. Objective Active Medications: Acetaminophen (Tylenol Tab*) 650 mg PO Q4H PRN PRN Reason: FEVER/PAIN Last Admin: 03/14/17 05:12 Dose: 650 mg Albuterol (Ventolin 2.5 Mg/3 Ml Neb.Maye*) 2.5 mg INH Q2H PRN PRN Reason: SOB/WHEEZING Atorvastatin Calcium (Lipitor*) 20 mg PO 1700 [facility] Last Admin: 03/13/17 17:48 Dose: 20 mg Clonazepam (Klonopin Tab(*)) 0.5 mg PO BEDTIME PRN PRN Reason: SLEEP Last Admin: 03/13/17 22:06 Dose: 0.5 mg Fluoxetine HCl (Prozac Cap*) 40 mg PO QAM [facility] Last Admin: 03/14/17 08:51 Dose: 40 mg Guaifenesin/Codeine Phosphate (Robitussin Ac 100mg-10mg*) 5 ml PO Q4H PRN PRN Reason: COUGH Last Admin: 03/13/17 22:11 Dose: 5 ml Heparin Sodium (Porcine) (Heparin Vial(*)) 5,000 units SUBCUT Q8HR [facility] Last Admin: 03/14/17 05:13 Dose: 5,000 units Sodium Chloride (Ns 0.9% 1000 Ml*) 1,000 mls @ 100 mls/hr IV PER RATE [facility] Last Admin: 03/13/17 17:49 Dose: 100 mls/hr Azithromycin 500 mg/ Sodium (Chloride) 250 mls @ 250 mls/hr IVPB Q24H [facility] Last Admin: 03/13/17 17:48 Dose: 250 mls/hr Cefepime HCl 2 gm/ Sodium (Chloride) 50 mls @ 100 mls/hr IVPB 0900,2100 [facility] Last Admin: 03/14/17 08:52 Dose: 100 mls/hr Ondansetron HCl (Zofran Inj*) 4 mg IV Q6H PRN PRN Reason: NAUSEA Last Admin: 03/13/17 18:30 Dose: 4 mg Oxcarbazepine (Trileptal Tab(*)) 300 mg PO BID [facility] Last Admin: 03/14/17 08:51 Dose: 300 mg Oxycodone HCl (Roxycodone Tab*) 5 mg PO Q4H PRN PRN Reason: PAIN Last Admin: 03/14/17 08:52 Dose: 5 mg Vital Signs: Temp Pulse Resp BP Pulse Ox 99.5 F 77 16 93/55 96 03/14/17 07:14 03/14/17 09:18 03/14/17 09:18 03/14/17 07:14 03/14/17 09:18 Oxygen Devices in Use Now: - - humidified O2 over tracheostomy Appearance: Chronically ill appearing female in NAD, sitting upright in hospital bed Respiratory: Symmetrical Chest Expansion and Respiratory Effort, - - coarse lung sounds throughout Cardiovascular: NL Sounds; No Murmurs; No JVD, RRR Abdominal: NL Sounds; No Tenderness; No Distention Extremities: No Edema Neurological: Alert and Oriented x 3 Result Diagrams: 03/14/17 06:30 03/14/17 06:30 Additional Lab and Data: Laboratory Tests 03/13/17 03/13/17 12:48 12:48 C-Reactive Protein 151.51 H Procalcitonin 0.1 Microbiology and Other Data: Microbiology 03/13/17 18:35 Gram Stain - Final Sputum Trach 03/13/17 20:45 Legionella Urinary Antigen - Final Urine Negative Legionella Streptococcus pneumoniae Ag Screen - Final Negative S. pneumo Antigen Diagnostic Imaging: CTA chest - no PE, concern for circumferential thickening of bilateral plura and mild interlobular thickening with patchy, ground glass opacities and a soft tissue mass in the R hilar region - upon personal review of the imaging compared to 10/2016, this looks slightly improved Assess/Plan/Problems-Billing Assessment: This is a 56 yo female with an active malignancy under treatment with [facility] as well as a vocal cord paralysis with a tracheostomy in place as well as JAISON, anxiety and HLD who presented with fever, dyspnea and productive cough with hypotension, tachycardia and tachypnea, admitted for sepsis and likely PNA. - Patient Problems (1) Sepsis Comment: Patient met sepsis criteria at admission with fever, tachypnea, tachycardia, hypotension and leukopenia Secondary to probable pneumonia (2) Pneumonia Comment: No large infiltrate apparent on CTA, but a few ground glass opacities, similar or slightly improved from prior imaging in October Briefly reviewed imaging and case with oncologist who stated if her first dose of Keytruda was just 2 days ago, this is unlikely to represent pneumonitis and did not recommend starting empiric corticosteroids at this time Will continue with Cefepime and azithromycin, agree with pseudomonal and atypical coverage Sputum culture is pending, legionella and S pneumo Ag testing negative (3) Thyroid cancer Comment: Treated by [facility] According to patient, her diagnosis is not entirely clear She has been treated with radiation and chemotherapy with 2 unknown drugs ending ~3 weeks ago and was started on Keytruda 03/12/17 Working to get records (4) Tracheostomy in place Comment: Placed due to vocal cord paralysis (5) JAISON (obstructive sleep apnea) (6) Hyperlipidemia (7) Full code status (8) DVT prophylaxis Comment: SQ heparin Status and Disposition: Inpatient. Anticipate discharge in 1-2 days.
[2017-03-14] MEDS: guaiFENesin/CODIEN 100MG-10MG* 5 ML UDC PO PRN ×2 (09:42→22:14)
[2017-03-14] MEDS: Ondansetron INJ* 2 MG/ML VIAL IV PRN ×2 (12:03→18:12)
[2017-03-14] MEDS: Azithromycin IV(*) 500 MG in NS 0.9% 250 ML* 250 ML IVPB SCH (17:08)
[2017-03-14] MEDS: Atorvastatin* 20 MG TAB PO SCH (17:08)
[2017-03-14] MEDS ORDERED: PROCHLORPERAZINE INJ 5 MG/ML 2 ML VIAL IV PRN (21:38)
[2017-03-14] MEDS ORDERED: PROCHLORPERAZINE INJ 5 MG/ML 2 ML VIAL ONE (21:43)
[2017-03-14] MEDS: clonazePAM TAB(*) 0.5 MG PO PRN (22:14)
[2017-03-15] MEDS: oxyCODONE TAB* 5 MG TAB PO PRN (03:00)
[2017-03-15] MEDS: Heparin VIAL(*) 5000 UNITS/ML VIAL (FIVE THOUSAND) SUBCUT SCH (05:30)
[2017-03-15 06:58] LABS: Hematocrit 28 % (35-47); Hemoglobin 9.5 g/dl (12.0-16.0); Mean Corpuscular HGB Conc 34 g/dl (31-36); Mean Corpuscular Hemoglobin 28 pg (27-31); Mean Corpuscular Volume 83 fL (80-97); Mean Platelet Volume 7 um3 (7.4-10.4); Red Blood Count 3.39 10^6/ul (4.0-5.4)
[2017-03-15 07:04] LABS: Comments Flag Yes
[2017-03-15 07:05] LABS: Red Cell Distribution Width 25 % (10.5-15); White Blood Count 2.8 10^3/ul (3.5-10.8)
[2017-03-15 07:09] LABS: BUN/Creatinine Ratio 9.1 (8-20); Calcium 9.2 mg/dL (8.6-10.3); EGFR African American 118.3 (>60); Potassium 3.3 mmol/L (3.5-5.0)
[2017-03-15] MEDS ORDERED: Potassium Chlor TAB* 20 MEQ TAB.ER PO ONE (07:21)
[2017-03-15 07:49] LABS: Magnesium 2.1 mg/dL (1.9-2.7)
[2017-03-15 08:13] VITALS: BP 121/56
[2017-03-15] MEDS: FLUoxetine CAP* 20 MG PO SCH (08:16)
[2017-03-15] MEDS: OXcarbazepine TAB(*) 300 MG PO SCH (08:16)
[2017-03-15] MEDS: Cefepime(*) 2 GM in NS 0.9% 50 ML* 50 ML IVPB SCH (08:17)
--- NOTE | 2017-03-16 02:49 | DS ---
CC: Dr. Bhavya Chilel; Dr. Mcclendon at [facility] * DISCHARGE SUMMARY: DATE OF ADMISSION: 03/13/17 DATE OF DISCHARGE: 03/15/17 PRIMARY CARE PROVIDER: Dr. Bhavya Chilel. PRIMARY ONCOLOGIST: Dr. Mcclendon at [facility]. DISCHARGING PROVIDER: SELVIN Moncada SUPERVISING PHYSICIAN: Dr. Ariane Green * (DICTATED BY SELVIN MONCADA) PRIMARY DISCHARGE DIAGNOSES: 1. Sepsis secondary to pneumonia - sputum culture pending at the time of discharge and blood cultures negative with negative legionella and strep pneumo antigens. 2. Mild leukopenia with an ANC of 1500 at the time of discharge. 3. Normocytic anemia - likely due to malignancy or as a result of her treatment. 4. Hypokalemia. SECONDARY DISCHARGE DIAGNOSES: 1. Unspecified thyroid malignancy under the care of Dr. Mcclendon at [facility], completed chemo and radiation therapy approximately 6 weeks ago and just started immunotherapy with Keytruda the day prior to admission. 2. Tracheostomy in place secondary to vocal cord paralysis. 3. Obstructive sleep apnea. 4. Hyperlipidemia. DISCHARGE MEDICATIONS: 1. Atorvastatin 20 mg p.o. at bedtime. 2. Diphenhydramine 12.5 mg p.o. at bedtime. 3. Prozac 40 mg p.o. daily. 4. Tussionex 10/8 mg per 5 mL p.o. q. 12 hours as needed for cough. 5. Levaquin 750 mg p.o. daily x10 days. 6. Trileptal 300 mg p.o. twice daily. 7. Clonazepam 0.5 mg p.o. at bedtime. 8. Guaifenesin/codeine 100-10, 5 mL p.o. q. 4 hours as needed for cough. 9. Oxycodone 5 mg p.o. q. 4 hours as needed for pain. HOSPITAL IMAGIN. Chest x-ray was read as suspect mild interstitial congestion. No significant interval changes. 2. CTA of the chest was read as no evidence of PE. There is some circumferential thickening of the bilateral pleura as well soft tissue nodularity along bilateral fissures. In addition, there is mild interlobular thickening and patchy ground glass opacification at the right hilum. There is a more focal area of soft tissue measuring 2.2 x 3.3 cm, possibly representing a pulmonary mass or right hilar lymph node. Per personal review, CT imaging appears improved when compared to prior CT from October. HOSPITAL COURSE: This is a very pleasant 56-year-old female who is undergoing treatment for an unspecified thyroid malignancy at [facility], who just started immunotherapy with Keytruda the day prior to admission, but had completed chemotherapy and radiation almost 3 weeks prior to that. She states that a couple of days prior to her Keytruda therapy, she started feeling somewhat ill. The day following, she was noted to be febrile with increased dyspnea and a productive cough. She had a fever as high as 102.2 degrees Fahrenheit at home. Initial chest x-ray was unremarkable followed up by a CTA of the chest showed no PE or large infiltrate, but some nonspecific findings perhaps utility sales representative of an interstitial process versus atypical pneumonia as described above. The patient was leukopenic with white blood cell count of 2.7 at the time of admission. Hemoglobin 9.1 with a normal platelet count. Chemistries showed some mild hypokalemia. CRP was elevated to 151. Procalcitonin was negative at 0.1. The patient was hypotensive and febrile when she reached the emergency department. She was subsequently admitted for concern for sepsis secondary to pneumonia. She is empirically treated with cefepime and azithromycin for coverage for pseudomonas as well as atypical pathogens. She does have a tracheostomy in place as well secondary to vocal cord paralysis. The patient states that her typical oxygen needs are at night as well as with exertion, but over the couple of days prior to admission and during her hospital stay, she found that she required oxygen at daytime during rest as well. The patient noted improvement in her cough during her hospital stay, but remains dyspneic with exertion, but asymptomatic at rest. Her fever is improved and her leukopenia remained stable. Briefly reviewed case and imaging with oncology team present here at [facility], who mentioned that Keytruda can be associated with pneumonitis, but typical timing of onset is at several months and seeing as her first treatment was just the day prior to admission, this was unlikely to be the case. The patient did have some coarse breath sounds and with her persistent dyspnea and rather severe presentation, discussed the utility of empiric low-dose corticosteroids to help with bronchospasm associated with her lung infection. The patient declined use of steroids as she did not appreciate their side effects and felt that her symptoms were manageable without. The patient remains more dyspneic than her baseline at the time of discharge, but was anxious to return home and felt that she has the resources that she needed, including supplemental oxygen, at home. DISPOSITION AND FOLLOWUP PLAN: The patient is being discharged from the hospital to home with 10 days of oral Levaquin and Robitussin AC for cough suppression. The patient is encouraged to please follow up with her primary care provider early next week and to contact her oncologist regarding her hospitalization. SELVIN MONCADA [id number]/[facility] #: [id number] ALLEN
== END 2017-03-15 09:15 | disposition home or self-care (01) | DRG 720 ==
LOC: ED 12:00 → MED 15:39 → OBSVTOIN 03-14 09:59
PROVIDERS: ADMIT Internal Medicine; ATTEND Hospitalist
DX: A41.9 Sepsis, unspecified organism (principal); J18.9 Pneumonia, unspecified organism; J38.00 Paralysis of vocal cords and larynx, unspecified; Z93.0 Tracheostomy status; D64.9 Anemia, unspecified; C73 Malignant neoplasm of thyroid gland; E78.5 Hyperlipidemia, unspecified; D32.9 Benign neoplasm of meninges, unspecified; D72.819 Decreased white blood cell count, unspecified; E87.6 Hypokalemia; G47.33 Obstructive sleep apnea (adult) (pediatric); F41.9 Anxiety disorder, unspecified; Z79.1 Long term (current) use of non-steroidal anti-inflammatories (NSAID); Z79.891 Long term (current) use of opiate analgesic; Z79.899 Other long term (current) drug therapy; Z82.49 Family history of ischemic heart disease and other diseases of the circulatory system; Z84.89 Family history of other specified conditions; Z87.891 Personal history of nicotine dependence
CPT/HCPCS: 36415; 71020; 71275; 80048; 80053; 81003; 82550; 82553; 83605; 83735; 83880; 84145; 84484; 85025; 85730; 86140; 87040; 87070; 87077; 87086; 87186; 87205; 87899; 93005; 94760; A9270-GY; G0378; J0456; J0692; J0696; J0780; J1644; J2405; Q9967

== ENCOUNTER 2017-03-20 09:45 | Emergency (ER) | payer BC ==
--- NOTE | 2017-03-20 10:42 | RAD ---
INDICATION: Shortness of breath. COMPARISON: Comparison is made with a prior chest x-ray study from March 13, 2017. TECHNIQUE: Dual-energy PA and lateral views of the chest were obtained. FINDINGS: There is a tracheostomy tube present. The heart is within normal limits in size. There is diffuse prominence of the interstitial markings and small bilateral pleural effusions which have progressed slightly from the prior exam suggestive of congestive heart failure. There is also nodular pleural thickening present laterally in both hemithoraces. IMPRESSION: 1. FINDINGS SUGGESTIVE OF CONGESTIVE HEART FAILURE. 2. BILATERAL NODULAR PLEURAL THICKENING.
[2017-03-20 10:45] LABS: Hematocrit 30 % (35-47); Hemoglobin 9.9 g/dl (12.0-16.0); Mean Corpuscular HGB Conc 33 g/dl (31-36); Mean Corpuscular Hemoglobin 27 pg (27-31); Mean Corpuscular Volume 82 fL (80-97); Mean Platelet Volume 7 um3 (7.4-10.4); Red Blood Count 3.65 10^6/ul (4.0-5.4); White Blood Count 4.6 10^3/ul (3.5-10.8)
[2017-03-20 10:46] LABS: Comments Flag Yes
[2017-03-20 10:47] LABS: Red Cell Distribution Width 24 % (10.5-15)
[2017-03-20 11:02] LABS: Albumin 3.4 g/dL (3.2-5.2); BUN/Creatinine Ratio 12.9 (8-20); Calcium 9.8 mg/dL (8.6-10.3); EGFR African American 127.1 (>60); EGFR Non-African American 98.9 (>60); Globulin 3.9 g/dL (2-4); Potassium 3.5 mmol/L (3.5-5.0); Total Protein 7.3 g/dL (6.4-8.9)
[2017-03-20 11:04] LABS: Troponin I 0.01 ng/mL (<0.04)
[2017-03-20 12:51] VITALS: BP 117/66
--- NOTE | 2017-03-20 20:09 | ED ---
Lidia Barbosa Edward, scribed for Jarvis Laboy MD on 03/20/17 at 1018 . Shortness of Breath - HPI Summary HPI Summary: 56 y/o female presents to ED c/o CP and SOB starting yesterday. CP described as a stabbing pain radiating to her back, aggravated when she lays down. Associated sx: occasional N/V. Denies fever and chills. Patient was admitted a week ago for cough, SOB and throat pain. Patient has not felt better since. PMHx lung cancer. - History of Current Complaint Chief Complaint: EDShortnessOfBreath Time Seen by Provider: 03/20/17 10:13 Hx Obtained From: Patient Onset/Duration: Lasting Days - yesterday Dyspnea At: [facility] Associated Signs & Symptoms: Chest Pain Unrelated to Cough - Allergy/Home Medications Allergies/Adverse Reactions: Allergies Allergy/AdvReac Type Severity Reaction Status Date / Time No Known Allergies Allergy Verified 12/24/16 12:15 Home Medications: Home Medications Potassium Chlor TAB* [Klor Con ER TAB*] 20 meq PO DAILY 03/20/17 [History Confirmed 03/20/17] fentaNYL PATCH 25 MCG/HR* [Duragesic PATCH 25 Mcg/Hr*] 25 mcg TRANSDERM Q72H [History Confirmed 03/20/17] PMH/Surg Hx/FS Hx/Imm Hx Previously Healthy: No Endocrine/Hematology History: Reports: Hx Anemia - HISTORY OF IN THE PAST Denies: Hx Diabetes, Hx Thyroid Disease Cardiovascular History: Reports: Hx Congestive Heart Failure Denies: Hx Hypertension, Hx Pacemaker/ICD, Other Cardiovascular Problems/ Disorders Respiratory History: Reports: Hx Sleep Apnea Denies: Hx Asthma, Hx Chronic Obstructive Pulmonary Disease (COPD), Other Respiratory Problems/Disorders GI History: Denies: Hx Ulcer, Other GI Disorders History: Denies: Hx Renal Disease Musculoskeletal History: Denies: Other Musculoskeletal History Sensory History: Denies: Hx Contacts or Glasses, Hx Hearing Aid Opthamlomology History: Denies: Hx Contacts or Glasses Neurological History: Denies: Other Neuro Impairments/Disorders Psychiatric History: Reports: Hx Anxiety - ON MEDS, Hx Depression - ON MEDS Denies: Hx Panic Disorder - Cancer History Cancer Type, Location and Year: [place] Thyroid tumor Hx Chemotherapy: No Hx Radiation Therapy: No - Surgical History Surgery Procedure, Year, and Place: [facility] [place]. tubal , 1989, [facility]. tubal ligation, 1983 , [facility] [place]. benign breast biopsy left, 1992, [facility] SURGERY 12/12/15 & - THROPLASTY W/ GORE PATCH. Hx Anesthesia Reactions: No Infectious Disease History: Denies: Hx Clostridium Difficile, Hx Hepatitis, Hx Human Immunodeficiency Virus (HIV), Hx of Known/Suspected MRSA, Hx Shingles, Hx Tuberculosis, History Other Infectious Disease, Traveled Outside the in Last 30 Days - Family History Known Family History: Positive: Hypertension, Other - breast CA - Social History Alcohol Use: Occasionally Alcohol Amount: 1 PER MONTH Substance Use Type: Reports: None Smoking Status (MU): Former Smoker Type: Cigarettes Amount Used/How Often: PACK A DAY Have You Smoked in the Last Year: No Review of Systems Constitutional: Negative Negative: Fever, Chills Eyes: Negative ENT: Negative Positive: Chest Pain Positive: Shortness Of Breath Positive: Vomiting, Nausea Genitourinary: Negative Musculoskeletal: Negative Skin: Negative Neurological: Negative Psychological: Normal All Other Systems Reviewed And Are Negative: Yes Physical Exam - Summary Physical Exam Summary: VITAL SIGNS:~Reviewed. GENERAL:~ Patient is a well-developed and nourished female who is lying comfortable in the stretcher.~ Patient is not in any acute respiratory distress. HEAD AND FACE:~No signs of trauma.~ No ecchymosis, hematomas or skull depressions. No sinus tenderness. EYES:~PERRLA, EOMI x 2, No injected conjunctiva, no nystagmus. EARS:~Hearing grossly intact. Ear canals and tympanic membranes are within normal limits. MOUTH:~Oropharynx within normal limits. NECK:~Supple, trachea is midline, no adenopathy, no JVD, no carotid bruit, no c- spine tenderness, neck with full ROM. CHEST:~Symmetric, no tenderness at palpation LUNGS:~Clear to auscultation bilaterally. No wheezing or crackles. Decreased breath sounds. Tracheostomy in place. CVS:~Regular rate and rhythm, S1 and S2 present, no murmurs or gallops appreciated. ABDOMEN:~Soft, non-tender. No signs of distention. No rebound no guarding, and no masses palpated. Bowel sounds are normal. EXTREMITIES:~FROM in all major joints, no edema, no cyanosis or clubbing. NEURO:~Alert and oriented x 3. No acute neurological deficits. Speech is normal and follows commands. SKIN:~Dry and warm Triage Information Reviewed: Yes Vital Signs On Initial Exam: Initial Vitals Temp Pulse Resp BP Pulse Ox 97.7 F 119 26 106/67 88 03/20/17 09:47 03/20/17 09:47 03/20/17 09:47 03/20/17 09:47 03/20/17 09:47 Vital Signs Reviewed: Yes Diagnostics - Vital Signs Vital Signs Temp Pulse Resp BP Pulse Ox 03/20/17 09:47 97.7 F 119 26 106/67 88 - Laboratory Lab Results: Lab Results 03/20/17 03/20/17 03/20/17 Range/Units 10:35 10:35 10:35 WBC 4.6 (3.5-10.8) 10^3/ul RBC 3.65 L (4.0-5.4) 10^6/ul Hgb 9.9 L (12.0-16.0) g/dl Hct 30 L (35-47) % MCV 82 (80-97) fL MCH 27 (27-31) pg MCHC 33 (31-36) g/dl RDW 24 H (10.5-15) % Plt Count 426 (150-450) 10^3/ul MPV 7 L (7.4-10.4) um3 Neut % (Auto) 67.8 (38-83) % Lymph % (Auto) 19.2 L (25-47) % [place] % (Auto) 9.6 H (1-9) % Eos % (Auto) 2.4 (0-6) % Baso % (Auto) 1.0 (0-2) % Absolute Neuts (auto) 3.1 (1.5-7.7) 10^3/ul Absolute Lymphs (auto) 0.9 L (1.0-4.8) 10^3/ul Absolute Monos (auto) 0.4 (0-0.8) 10^3/ul Absolute Eos (auto) 0.1 (0-0.6) 10^3/ul Absolute Basos (auto) 0 (0-0.2) 10^3/ul Absolute Nucleated RBC 0 10^3/ul Nucleated RBC % 0 Sodium 134 (133-145) mmol/L Potassium 3.5 (3.5-5.0) mmol/L Chloride 95 L (101-111) mmol/L Carbon Dioxide 30 (22-32) mmol/L Anion Gap 9 (2-11) mmol/L BUN 8 (6-24) mg/dL Creatinine 0.62 (0.51-0.95) mg/dL Est GFR ( Amer) 127.1 (>60) Est GFR (Non-Af Amer) 98.9 (>60) BUN/Creatinine Ratio 12.9 (8-20) Glucose 95 (70-100) mg/dL Lactic Acid 0.9 (0.5-2.0) mmol/L Calcium 9.8 (8.6-10.3) mg/dL Total Bilirubin 1.00 (0.2-1.0) mg/dL AST 49 H (13-39) U/L ALT 86 H (7-52) U/L Alkaline Phosphatase 211 H (34-104) U/L Troponin I 0.01 (<0.04) ng/mL B-Natriuretic Peptide ( - 100) pg/mL Total Protein 7.3 (6.4-8.9) g/dL Albumin 3.4 (3.2-5.2) g/dL Globulin 3.9 (2-4) g/dL Albumin/Globulin Ratio 0.9 L (1-3) //17 Range/Units 10:35 WBC (3.5-10.8) 10^3/ul RBC (4.0-5.4) 10^6/ul Hgb (12.0-16.0) g/dl Hct (35-47) % MCV (80-97) fL MCH (27-31) pg MCHC (31-36) g/dl RDW (10.5-15) % Plt Count (150-450) 10^3/ul MPV (7.4-10.4) um3 Neut % (Auto) (38-83) % Lymph % (Auto) (25-47) % [place] % (Auto) (1-9) % Eos % (Auto) (0-6) % Baso % (Auto) (0-2) % Absolute Neuts (auto) (1.5-7.7) 10^3/ul Absolute Lymphs (auto) (1.0-4.8) 10^3/ul Absolute Monos (auto) (0-0.8) 10^3/ul Absolute Eos (auto) (0-0.6) 10^3/ul Absolute Basos (auto) (0-0.2) 10^3/ul Absolute Nucleated RBC 10^3/ul Nucleated RBC % Sodium (133-145) mmol/L Potassium (3.5-5.0) mmol/L Chloride (101-111) mmol/L Carbon Dioxide (22-32) mmol/L Anion Gap (2-11) mmol/L BUN (6-24) mg/dL Creatinine (0.51-0.95) mg/dL Est GFR ( Amer) (>60) Est GFR (Non-Af Amer) (>60) BUN/Creatinine Ratio (8-20) Glucose (70-100) mg/dL Lactic Acid (0.5-2.0) mmol/L Calcium (8.6-10.3) mg/dL Total Bilirubin (0.2-1.0) mg/dL AST (13-39) U/L ALT (7-52) U/L Alkaline Phosphatase (34-104) U/L Troponin I (<0.04) ng/mL B-Natriuretic Peptide 29 ( - 100) pg/mL Total Protein (6.4-8.9) g/dL Albumin (3.2-5.2) g/dL Globulin (2-4) g/dL Albumin/Globulin Ratio (1-3) Result Diagrams: 03/20/17 10:35 03/20/17 10:35 Lab Statement: Any lab studies that have been ordered have been reviewed, and results considered in the medical decision making process. - Radiology CXR Xray Interpretation: Positive (See Comments) - 1. FINDINGS SUGGESTIVE OF CONGESTIVE HEART FAILURE. 2. BILATERAL NODULAR PLEURAL THICKENING. Radiology Interpretation Completed By: Radiologist - EKG 1 EKG Interpretation: 11:34 - Sinus Tachycardia @ [address] elevation EKG Comparison: No Significant Change - 03/13/17 Course/Dx - Course Assessment/Plan: 56 y/o female presents to ED c/o CP and SOB starting yesterday. CP described as a stabbing pain radiating to her back, aggravated when she lays down. Associated sx: occasional N/V. Denies fever and chills. Patient was admitted a week ago for cough, SOB and throat pain. Patient has not felt better since. PMHx lung cancer. Test results show chronic anemia without any bands. Slight increase in LFTs. CXR: 1. FINDINGS SUGGESTIVE OF CONGESTIVE HEART FAILURE. 2. BILATERAL NODULAR PLEURAL THICKENING. In the ER course, pt given Duoneb and her vital signs were stable. The patients HR decreased to 90 bpm. Her O2 stat ranged between 94% -95% with 3 L O2. I discussed the findings and test results with Dr. Mcclendon who is the pts oncologist, and he recommend we d/c the patient home since the pt has no PNA and her vital signs were stable. The patient will be instructed to increase to 4-5 L of O2 if needed and to f/u with Dr. Mcclendon on 04/02/17. The patient is instructed that if she develops fevers, chills, CP, or SOB that she return to the ED immediately. She is agreeable with the plan. She reports in the past that she has done increasing O2 at home and has not needed to return to the ER. The pt will be going home with her granddaughter who agrees with the plan. The patient was given a referral to see Dr. Mace of Oncology. I discussed all the findings and test results with the patient. Patient was instructed to return to the emergency room immediately if any of the symptoms return or worsens . Plan of care was discussed with the patient and understands and agrees. All questions were answered at patient satisfaction. There were no further complaints or concerns. Lung exam before discharge: CTA B/L. Good air exchange. No wheezing or crackles heard. CVS: S1 and S2 present. No murmurs appreciated. Patient is alert and oriented x 3. Patient is hemodynamically stable. Patient will be discharged home with follow up procurement coordinator in the next 2-3 days - Diagnoses Provider Diagnoses: Advanced CA, Dyspnea Discharge - Discharge Plan Condition: Stable Disposition: HOME Patient Education Materials: Self Care Measures With Cancer (ED), Dyspnea (ED) Referrals: Shawna Mace MD [Medical Doctor] - 3 Days (Please f/u in 2-3 days) The documentation as recorded by the Lidia bass Edward accurately reflects the service I personally performed and the decisions made by me, Jarvis Laboy MD.
== END 2017-03-20 12:55 | disposition home or self-care (01) ==
LOC: ED 09:45
DX: C34.90 Malignant neoplasm of unspecified part of unspecified bronchus or lung (principal); R07.9 Chest pain, unspecified; R06.02 Shortness of breath; R11.2 Nausea with vomiting, unspecified; Z87.891 Personal history of nicotine dependence
CPT/HCPCS: 36415; 71020; 80053; 83605; 83880; 84484; 85025; 93005; 94760; 99283

== ENCOUNTER 2017-03-24 23:52 | Inpatient (IN) | payer BC ==
[2017-03-25] MEDS ORDERED: Albuterol/Ipratropium NEB.SOL* Albuterol 2.5 MG/Ipratropium 0.5 MG 3 ML INH ONE (00:25)
[2017-03-25] MEDS ORDERED: NS 0.9% 1000 ML* 1,000 ML IV ONE (00:25)
[2017-03-25] MEDS ORDERED: methylPREDNISolone 125 MG* 2 ML VIAL IV ONE (00:28)
[2017-03-25 01:07] LABS: Hematocrit 30 % (35-47); Hemoglobin 9.9 g/dl (12.0-16.0); Mean Corpuscular HGB Conc 33 g/dl (31-36); Mean Corpuscular Hemoglobin 27 pg (27-31); Mean Corpuscular Volume 82 fL (80-97); Mean Platelet Volume 7 um3 (7.4-10.4); Red Blood Count 3.64 10^6/ul (4.0-5.4); White Blood Count 8.3 10^3/ul (3.5-10.8)
[2017-03-25 01:13] LABS: Comments Flag Yes
[2017-03-25 01:14] LABS: Red Cell Distribution Width 24 % (10.5-15)
[2017-03-25 01:22] LABS: Albumin 3.2 g/dL (3.2-5.2); Calcium 9.5 mg/dL (8.6-10.3); EGFR Non-African American 126.7 (>60); Globulin 4.1 g/dL (2-4); Potassium 3.3 mmol/L (3.5-5.0); Total Bilirubin 0.7 mg/dL (0.2-1.0); Total Protein 7.3 g/dL (6.4-8.9)
[2017-03-25 01:24] LABS: Troponin I 0.01 ng/mL (<0.04)
[2017-03-25] MEDS ORDERED: diPHENhydraMINE LIQ* 12.5 MG/5 ML UDC PO PRN (03:51)
[2017-03-25] MEDS ORDERED: Ibuprofen TAB* 400 MG PO PRN (03:51)
--- NOTE | 2017-03-25 04:01 | ED ---
Zora Barbosa Rebecca, scribed for Edwar Bauman MD on 03/25/17 at 0018 . Shortness of Breath - HPI Summary HPI Summary: Pt is a 56 y/o F BIBA who presents to ED c/o moderate SOB characterized as dyspnea at rest. Additionally c/o N/V, fever and congestion, stating her " phlegm feels stuck." Notes pain in her "lungs" specifically on the L side, upon inspiration. Sx aggravated by laying down, alleviated by nothing, unchanged by Nebulizer Tx. Denies edema and diarrhea. Is on Prednisone. Is not on blood thinners. Recent Abx use within the last 6 weeks. She was evaluated 2 days ago by [facility] for similar sx and was D/C to home with directions to increase her O2 at home, which she did and it did not help. - History of Current Complaint Chief Complaint: EDRespiratoryDistress Hx Obtained From: Patient Onset/Duration: Still Present Current Severity: Moderate Dyspnea At: Rest Aggrevating Factors: Recumbent Position - Laying down Alleviating Factors: Nothing Associated Signs & Symptoms: Fever - Allergy/Home Medications Allergies/Adverse Reactions: Allergies Allergy/AdvReac Type Severity Reaction Status Date / Time No Known Allergies Allergy Verified 12/24/16 12:15 Home Medications: Home Medications Magnesium [Magnesium] 400 mg PO BID 03/25/17 [History Confirmed 03/25/17] PMH/Surg Hx/FS Hx/Imm Hx Endocrine/Hematology History: Reports: Hx Anemia - HISTORY OF IN THE PAST Denies: Hx Diabetes, Hx Thyroid Disease Cardiovascular History: Reports: Hx Congestive Heart Failure Denies: Hx Hypertension, Hx Pacemaker/ICD, Other Cardiovascular Problems/ Disorders Respiratory History: Reports: Hx Sleep Apnea Denies: Hx Asthma, Hx Chronic Obstructive Pulmonary Disease (COPD), Other Respiratory Problems/Disorders GI History: Denies: Hx Ulcer, Other GI Disorders History: Denies: Hx Renal Disease Musculoskeletal History: Denies: Other Musculoskeletal History Sensory History: Denies: Hx Contacts or Glasses, Hx Hearing Aid Opthamlomology History: Denies: Hx Contacts or Glasses Neurological History: Denies: Other Neuro Impairments/Disorders Psychiatric History: Reports: Hx Anxiety - ON MEDS, Hx Depression - ON MEDS Denies: Hx Panic Disorder - Cancer History Cancer Type, Location and Year: [place] Thyroid tumor Hx Chemotherapy: No Hx Radiation Therapy: No - Surgical History Surgery Procedure, Year, and Place: [facility], [facility]. tubal , 1989, [facility]. tubal ligation, 1983 , [facility]. benign breast biopsy left, 1992, [facility] SURGERY 12/12/15 & - THROPLASTY W/ GORE PATCH. Hx Anesthesia Reactions: No Infectious Disease History: No Infectious Disease History: Denies: Hx Clostridium Difficile, Hx Hepatitis, Hx Human Immunodeficiency Virus (HIV), Hx of Known/Suspected MRSA, Hx Shingles, Hx Tuberculosis, History Other Infectious Disease, Traveled Outside the [place] in Last 30 Days - Family History Known Family History: Positive: Hypertension, Other - breast CA - Social History Alcohol Use: Occasionally Alcohol Amount: 1 PER MONTH Substance Use Type: Reports: None Smoking Status (MU): Former Smoker Type: Cigarettes Amount Used/How Often: PACK A DAY Have You Smoked in the Last Year: No Review of Systems Positive: Fever Positive: Other - Congestion Positive: Other - pain in the "lungs" upon inspiration Positive: Shortness Of Breath Positive: Vomiting, Nausea. Negative: Diarrhea Negative: Edema All Other Systems Reviewed And Are Negative: Yes Physical Exam - Summary Physical Exam Summary: The patient is well-nourished with mild to moderate SOB. The skin is warm and dry and skin color reflects adequate perfusion. HEENT: The head is normocephalic and atraumatic. The pupils are equal and reactive. The conjunctivae are clear and without drainage. Nares are patent and without drainage. Mouth reveals dry mucous membranes. She may have thrust on the tongue. The external ears are intact. The ear canals are patent and without drainage. The tympanic membranes are intact. Neck is supple and nontender. Trach collar is in place. No neck vein distension. No stridor. Respiratory: Chest is non-tender. Breath sounds are symmetrical and equal. She has some rales and wheezing in the right base. Cardiovascular: Hear is tachycardic with regular rhythm. There is no murmur or rub auscultated. There is no peripheral edema and pulses are symmetrical and equal. Abdomen: The abdomen is soft and non-tender. There are normal bowel sounds heard in all four quadrants and there is no organomegaly palpated. Musculoskeletal: There is no back pain noted. Extremities are non-tender with full range of motion. There is good capillary refill of 2 seconds. There is no peripheral edema or calf tenderness elicited. Decreased skin turgor. Neurological: Patient is alert and oriented to person, place and time. The patient has symmetrical motor strength in all four extremities. Cranial nerves are grossly intact. Deep tendon reflexes are symmetrical and equal in all four extremities. Psychiatric: The patient has an appropriate affect and does not exhibit any anxiety or depression. Triage Information Reviewed: Yes Vital Signs On Initial Exam: Initial Vitals Temp Pulse Resp BP Pulse Ox 100.1 F 121 33 123/70 90 03/25/17 00:06 03/25/17 00:06 03/25/17 00:06 03/25/17 00:06 03/25/17 00:06 Vital Signs Reviewed: Yes Diagnostics - Vital Signs Vital Signs Temp Pulse Resp BP Pulse Ox 03/25/17 00:06 100.1 F 121 33 123/70 90 - Laboratory Lab Results: Lab Results 03/25/17 03/25/17 03/25/17 Range/Units 00:55 00:55 00:55 WBC 8.3 (3.5-10.8) 10^3/ul RBC 3.64 L (4.0-5.4) 10^6/ul Hgb 9.9 L (12.0-16.0) g/dl Hct 30 L (35-47) % MCV 82 (80-97) fL MCH 27 (27-31) pg MCHC 33 (31-36) g/dl RDW 24 H (10.5-15) % Plt Count 462 H (150-450) 10^3/ul MPV 7 L (7.4-10.4) um3 Neut % (Auto) 75.6 (38-83) % Lymph % (Auto) 13.7 L (25-47) % [place] % (Auto) 7.9 (1-9) % Eos % (Auto) 1.6 (0-6) % Baso % (Auto) 1.2 (0-2) % Absolute Neuts (auto) 6.3 (1.5-7.7) 10^3/ul Absolute Lymphs (auto) 1.1 (1.0-4.8) 10^3/ul Absolute Monos (auto) 0.7 (0-0.8) 10^3/ul Absolute Eos (auto) 0.1 (0-0.6) 10^3/ul Absolute Basos (auto) 0.1 (0-0.2) 10^3/ul Absolute Nucleated RBC 0.01 10^3/ul Nucleated RBC % 0.1 Sodium 132 L (133-145) mmol/L Potassium 3.3 L (3.5-5.0) mmol/L Chloride 92 L (101-111) mmol/L Carbon Dioxide 33 H (22-32) mmol/L Anion Gap 7 (2-11) mmol/L BUN 10 (6-24) mg/dL Creatinine 0.50 L (0.51-0.95) mg/dL Est GFR ( Amer) 163.0 (>60) Est GFR (Non-Af Amer) 126.7 (>60) BUN/Creatinine Ratio 20.0 (8-20) Glucose 116 H (70-100) mg/dL Lactic Acid 1.1 (0.5-2.0) mmol/L Calcium 9.5 (8.6-10.3) mg/dL Total Bilirubin 0.70 (0.2-1.0) mg/dL AST 32 (13-39) U/L ALT 41 (7-52) U/L Alkaline Phosphatase 162 H (34-104) U/L Total Creatine Kinase 94 (10-223) U/L Troponin I 0.01 (<0.04) ng/mL B-Natriuretic Peptide ( - 100) pg/mL Total Protein 7.3 (6.4-8.9) g/dL Albumin 3.2 (3.2-5.2) g/dL Globulin 4.1 H (2-4) g/dL Albumin/Globulin Ratio 0.8 L (1-3) 03/25/17 Range/Units 00:55 WBC (3.5-10.8) 10^3/ul RBC (4.0-5.4) 10^6/ul Hgb (12.0-16.0) g/dl Hct (35-47) % MCV (80-97) fL MCH (27-31) pg MCHC (31-36) g/dl RDW (10.5-15) % Plt Count (150-450) 10^3/ul MPV (7.4-10.4) um3 Neut % (Auto) (38-83) % Lymph % (Auto) (25-47) % [place] % (Auto) (1-9) % Eos % (Auto) (0-6) % Baso % (Auto) (0-2) % Absolute Neuts (auto) (1.5-7.7) 10^3/ul Absolute Lymphs (auto) (1.0-4.8) 10^3/ul Absolute Monos (auto) (0-0.8) 10^3/ul Absolute Eos (auto) (0-0.6) 10^3/ul Absolute Basos (auto) (0-0.2) 10^3/ul Absolute Nucleated RBC 10^3/ul Nucleated RBC % Sodium (133-145) mmol/L Potassium (3.5-5.0) mmol/L Chloride (101-111) mmol/L Carbon Dioxide (22-32) mmol/L Anion Gap (2-11) mmol/L BUN (6-24) mg/dL Creatinine (0.51-0.95) mg/dL Est GFR ( Amer) (>60) Est GFR (Non-Af Amer) (>60) BUN/Creatinine Ratio (8-20) Glucose (70-100) mg/dL Lactic Acid (0.5-2.0) mmol/L Calcium (8.6-10.3) mg/dL Total Bilirubin (0.2-1.0) mg/dL AST (13-39) U/L ALT (7-52) U/L Alkaline Phosphatase (34-104) U/L Total Creatine Kinase (10-223) U/L Troponin I (<0.04) ng/mL B-Natriuretic Peptide 56 ( - 100) pg/mL Total Protein (6.4-8.9) g/dL Albumin (3.2-5.2) g/dL Globulin (2-4) g/dL Albumin/Globulin Ratio (1-3) Result Diagrams: 03/25/17 00:55 03/25/17 00:55 Lab Statement: Any lab studies that have been ordered have been reviewed, and results considered in the medical decision making process. - Radiology CXR Xray Interpretation: No Acute Changes - Unchanged from CXR on 03/20 showing increased vascular congestion. No evidence of PNA Radiology Interpretation Completed By: ED Physician - EKG 0106 Cardiac Rate: Tachycardia - 122 bpm EKG Rhythm: Sinus Tachycardia ST Segment: Non-Specific - Non-specific ST changes EKG Interpretation: Poor R wave progression, no STEMI Re-Evaluation - Re-Evaluation First Eval Re-Evaluation Time: 01:51 Change: Improved Comment: Pt reports her SOB has improved. Course/Dx - Course Assessment/Plan: Pt is a 56 y/o F BIBA who presents to ED c/o moderate SOB characterized as dyspnea at rest. Additionally c/o N/V, fever and congestion, stating her "phlegm feels stuck." Notes pain in her "lungs" specifically on the L side, upon inspiration. Sx aggravated by laying down, unchanged by Nebulizer Tx. Denies edema and diarrhea. Is on Prednisone. Is not on blood thinners. Recent Abx use within the last 6 weeks. She was evaluated 2 days ago by [facility] for similar sx and was D/C to home with directions to increase her O2 at home, which she did and it did not help. Troponin of 0.01. CXR reveals no acute findings. EKG reveals no STEMI. In the ED course she received Duoneb and Solu- Medrol which improved sx. Discussed care of pt with Dr. Tello who accepts for admisison. She will be admitted with Dx of acute dyspnea and respiratory distress. She understands and agrees. - Diagnoses Differential Diagnosis/HQI/PQRI: Positive: Bronchitis, CHF, COPD Exacerbation, Pneumonia Provider Diagnoses: Acute dyspnea, Respiratory distress - Physician Notifications Discussed Care of Patient With: Maikol Tello Time Discussed With Above Provider: 02:25 Instructed by Provider To: Other - Accepts pt for admission. - Critical Care Time Critical Care Time: 30-74 min - 30 minutes Discharge - Discharge Plan Condition: Good Disposition: ADMITTED TO [facility] Referrals: Bhavya Chille MD [Primary Care Provider] - The documentation as recorded by the Zora bass Rebecca accurately reflects the service I personally performed and the decisions made by me, Edwar Bauman MD.
[2017-03-25] MEDS ORDERED: Acetaminophen SUPP* 650 MG SUPP PR PRN (04:13)
[2017-03-25] MEDS ORDERED: Vancomycin(*) 1,000 MG in NS 0.9% 250 ML* 250 ML IVPB ONE (04:14)
[2017-03-25] MEDS ORDERED: Vancomycin per Pharmacy* NOTE FOLLOW UP PRN (04:37)
[2017-03-25] MEDS ORDERED: Cefepime(*) 1 GM in NS 0.9% 50 ML* 50 ML IVPB SCH (05:00)
[2017-03-25] MEDS: fentaNYL PATCH 25 MCG/HR TRANSDERM SCH (05:22)
[2017-03-25] MEDS: clonazePAM TAB(*) 0.5 MG PO PRN ×2 (05:25→22:08)
[2017-03-25] MEDS: Azithromycin IV(*) 500 MG in NS 0.9% 250 ML* 250 ML IVPB SCH (05:45)
[2017-03-25] MEDS: Heparin VIAL(*) 5000 UNITS/ML VIAL (FIVE THOUSAND) SUBCUT SCH ×3 (06:51→22:08)
[2017-03-25] MEDS: fentaNYL Patch Check Q Shift 1 NOTE SCH ×2 (07:23→19:36)
--- NOTE | 2017-03-25 07:48 | RAD ---
INDICATION: Cough, shortness of breath, recent pneumonia. COMPARISON: Comparison is made with a prior chest x-ray study from March 20, 2017. TECHNIQUE: Dual-energy PA and lateral views of the chest were obtained. FINDINGS: There is a tracheostomy tube which projects over the midline. The heart is within normal limits in size. There is diffuse prominence of the interstitial markings, thickening of the fissures and small bilateral pleural effusions which appear to have progressed from the prior exam suggestive of congestive heart failure less likely pneumonia. In addition there is nodular pleural thickening laterally within both lungs which appears unchanged and correlates with the prior CT of the chest findings from March 13, 2017. IMPRESSION: 1. FINDINGS SUGGESTIVE OF CONGESTIVE HEART FAILURE LESS LIKELY PNEUMONIA. 2. NODULAR PLEURAL THICKENING OF UNKNOWN ETIOLOGY DESCRIBED ON THE PRIOR CT STUDY.
[2017-03-25] MEDS: ZOSYN 3.375 GM Q8H per EXTENDED INFUSION IVPB SCH ×4 (08:30→16:32)
--- NOTE | 2017-03-25 08:37 | PN ---
Subjective Date of Service: 03/25/17 Interval History: HOSPITALIST PROGRESS NOTE Patient seen and examined at bedside. She feels a little better this AM, but still very dyspneic and desaturating to mid 80s during our interview, despite Vapotherm 25 liters/100% FiO2. Denies chest pain, but chest feels "tight to breathe". Recent admission for pneumonia, states she was feeling better when she went home, but 3 days ago started to have more dyspnea again. States she is able to eat regular food and drink thin liquids with no choking or coughing, but has to cut pills. Family History: Unchanged from Admission Social History: Unchanged from Admission Past Medical History: Unchanged from Admission Objective Active Medications: Acetaminophen (Tylenol Supp*) 650 mg MO Q4H PRN PRN Reason: FEVER/PAIN Clonazepam (Klonopin Tab(*)) 0.5 mg PO BEDTIME PRN PRN Reason: SLEEP Last Admin: 03/25/17 05:25 Dose: 0.5 mg Diphenhydramine HCl (Benadryl Liq*) 12.5 mg PO BEDTIME PRN PRN Reason: SLEEP Fentanyl (Duragesic Patch 25 Mcg/Hr*) 25 mcg TRANSDERM Q72H ON LICENSE OF [facility] Last Admin: 03/25/17 05:22 Dose: 25 mcg Fluoxetine HCl (Prozac Cap*) 40 mg PO QAM ON LICENSE OF [facility] Heparin Sodium (Porcine) (Heparin Vial(*)) 5,000 units SUBCUT Q8HR ON LICENSE OF [facility] Last Admin: 03/25/17 06:51 Dose: 5,000 units Azithromycin 500 mg/ Sodium (Chloride) 250 mls @ 250 mls/hr IVPB Q24H ON LICENSE OF [facility] Last Admin: 03/25/17 05:45 Dose: 250 mls/hr Vancomycin HCl 1,000 mg/ (Sodium Chloride) 250 mls @ 166.667 mls/hr IVPB Q8H ON LICENSE OF [facility] Piperacillin Sod/Tazobactam (Sod 3.375 gm/ Sodium Chloride) 100 mls @ 25 mls/ hr IVPB Q8H ON LICENSE OF [facility] Last Admin: 03/25/17 08:30 Dose: 25 mls/hr Ibuprofen (Motrin Tab*) 400 mg PO Q6H PRN PRN Reason: FEVER/PAIN Magnesium Oxide (Magox 400 Tab*) 400 mg PO BID ON LICENSE OF [facility] Oxcarbazepine (Trileptal Tab(*)) 300 mg PO BID ON LICENSE OF [facility] Oxycodone HCl (Roxycodone Tab*) 5 mg PO Q4H PRN PRN Reason: PAIN Pharmacy Consult (Vancomycin Per Pharmacy*) 1 note FOLLOW UP . PRN PRN Reason: PER PROTOCOL Pharmacy Profile Note (Fentanyl Patch Check Q Shift) 1 note N/A 0700,1900 ON LICENSE OF [facility] Last Admin: 03/25/17 07:23 Dose: 1 note Pharmacy Profile Note (Vancomycin Trough Check) 1 note FOLLOW UP 0530 ONE Stop: 03/26/17 05:31 Potassium Chloride (Klor Con Er Tab*) 20 meq PO DAILY ON LICENSE OF [facility] Vital Signs 03/25/17 03/25/17 03/25/17 07:19 07:30 07:45 Temperature 98.4 F Pulse Rate 88 103 Respiratory 21 23 Rate Blood Pressure 103/59 123/71 (mmHg) O2 Sat by Pulse 97 94 Oximetry Oxygen Devices in Use Now: High Flow Nasal Cannula - Vapotherm 25 liters/100% FiO2 Appearance: Middle aged lady sitting up in bed in [facility]. Eyes: No Scleral Icterus Ears/Nose/Mouth/Throat: Mucous Membranes Moist Neck: - - Clean trach in place Respiratory: Symmetrical Chest Expansion and Respiratory Effort, - - BS+ bilaterally coarse with bibasilar rales Cardiovascular: RRR - Normal S1 and S2 Abdominal: NL Sounds; No Tenderness; No Distention Extremities: No Edema Neurological: Alert and Oriented x 3, NL Muscle Strength and Tone Lines/Tubes/Other Access: Clean, Dry and Intact Peripheral IV Result Diagrams: 03/25/17 00:55 03/25/17 00:55 Assess/Plan/Problems-Billing Assessment: Mrs Monroy is a 56yo F with PMH of HLD, anxiety, vocal cord paralysis s/p tracheostomy, metastatic CA of unknown primary (initially thought to be thyroid or CASTLE, but not confirmed) s/p chemo (4 weekly doses of carbo/taxol) and radiation (completed 02/23) with progression of disease and now on Keytruda every 3 weeks (1st dose 03/12/17), recent admission to [facility] with pneumonia, who presents to ED with worsening dyspnea. - Patient Problems (1) Pneumonia Comment: - Sputum grew P. aeruginosas on prior admission, sensitive to Levofloxacin. Patient initially felt better, but 3 days ago had worsening of her symptoms. - Follow new cultures. - Continue broad spectrum antibiotics - Vanco, Zosyn, and Azithromycin. (2) Acute and chronic respiratory failure Comment: - Secondary to pneumonia vs progression of disease. - Continue vapotherm. (3) Metastatic malignant neoplasm of unknown primary site Comment: - [place] [facility] [place]. - Oncology consult requested with Dr. Trujillo. (4) DVT prophylaxis Comment: - SQ heparin. (5) Full code status Status and Disposition: Inpatient. Continue to monitor in ICU.
[2017-03-25] MEDS: FLUoxetine CAP* 20 MG PO SCH (08:57)
[2017-03-25] MEDS: Potassium Chlor TAB* 20 MEQ TAB.ER PO SCH (08:57)
[2017-03-25] MEDS: Magnesium Oxide TAB* 400 MG PO SCH ×2 (08:57→20:16)
[2017-03-25] MEDS: OXcarbazepine TAB(*) 300 MG PO SCH ×2 (09:10→20:17)
--- NOTE | 2017-03-25 14:10 | HP ---
CC: Dr. Bhavya Chilel; Dr. Shawna Mace * HISTORY AND PHYSICAL: DATE OF ADMISSION: 03/25/17 CHIEF COMPLAINT: Difficulty breathing. HISTORY OF PRESENT ILLNESS: The patient is a 56-year-old woman, recently discharged from [facility] for sepsis secondary to pneumonia who presents back with increased shortness of breath. The patient was recently diagnosed with cancer of unknown primary with mets to numerous areas including the lungs and was on home oxygen, but despite this, was having increasing difficulty breathing. When she came to the ER for her shortness of breath, they put her on Vapotherm and her breathing rapidly improved that she was no longer working hard. She also noted she had a slight fever when she came in. She has a cough as well that was productive of yellow phlegm. She states she received some nebulizer treatments here, which seemed to bring stuff up and clear up the mucus. She denies any chest pain or wheezing. She does have some chest tightness. She had some nausea and vomiting as well. She is currently on immunotherapy for her malignancy and has more treatment scheduled for at [facility]. After that, she is to follow up with Oncology here. In the ED, the patient did have a fever of 100.1 and was found to be hypoxic and responded well to Vapotherm. PAST MEDICAL HISTORY: Significant for cancer of unknown primary origin with mets to the thyroid, lungs, liver, adrenal gland, hips and jaw. Vocal cord palsy, obstructive sleep apnea, benign neoplasm of the meninges, anxiety, hyperlipidemia. PAST SURGICAL HISTORY: Significant for hysterectomy, tubal ligation, tracheostomy, thyroid surgery x2. CURRENT MEDICATIONS: As follows: 1. Magnesium 400 mg twice daily. 2. Oxycodone 5 mg every 4 hours as needed. 3. Potassium chloride tablets 20 mEq daily. 4. Levaquin 750 mg daily. 5. Trileptal 300 mg twice daily. 6. Ibuprofen 400 mg every 6 hours as needed. 7. Fentanyl patch 25 mcg every 72 hours. 8. Fluoxetine 40 mg in the morning. 9. Benadryl 12.5 mg at bedtime. 10. Clonazepam 0.5 mg at bedtime as needed. ALLERGIES: She has no known drug allergies. FAMILY HISTORY: Mother has heart disease. Father has cirrhosis. SOCIAL HISTORY: Ex-tobacco, quit about 10 years ago. No alcohol. She is . Surrogate decision maker is her [place]. REVIEW OF SYSTEMS: A 14-point review of systems was completed with the patient , all pertinent positives and negatives are in the history of present illness, otherwise, it is negative. PHYSICAL EXAMINATION GENERAL: Pleasant woman, sitting up in bed, in no acute distress. VITAL SIGNS: T-max 100.1, heart rate 99 beats per minute, respiratory rate 25 breaths per minute, pulse ox 95%, blood pressure 121/64. HEENT: Normocephalic, atraumatic. Pupils equal, round, and reactive to light. Moist mucous membranes. NECK: Tracheostomy in place. CHEST: She has got coarse breath sounds throughout. CARDIOVASCULAR: S1 and S2 appreciated. ABDOMEN: Positive bowel sounds in all 4 quadrants. Soft, nontender, nondistended. EXTREMITIES: No cyanosis, clubbing or edema. +2 pulses bilaterally. NEUROLOGIC: Alert and oriented x3. Moves all extremities. SKIN: No rash or abnormalities. LAB DATA/IMAGING STUDIES: White count 8.3, hemoglobin 9.9, hematocrit 30, platelets are 462. Sodium was 132, potassium 2.3, chloride 92, CO2 33, BUN 10, creatinine 0.50, glucose 116. Chest x-ray shows pleural thickening, questionable infiltrate, awaiting official reading. EKG shows sinus tachycardia rate of 122 beats per minute, normal axis, no acute ST or T wave changes. ASSESSMENT AND PLAN: 1. Respiratory failure. At this point, it is difficult to say whether or not it is from her pneumonia or her underlying lung metastasis. I continue her Vapotherm and put her in the ICU. Though I cannot tell if it is actually a pneumonia and she did have a positive sputum culture for pseudomonas, I placed her on Zosyn, which was sensitive too at her last visit. I have also added vanco and Zithromax, supporting coverage. We will check sputum C and S, urine legionella and pneumococcal antigen. My concern is this could be from metastasis and she may not improve despite treatment. 2. Cancer of unknown primary with mets management as per Oncology. Continue pain management. 3. FEN: Regular diet. 4. DVT prophylaxis, heparin subcu. 5. The patient is a full code. TIME SPENT: Over 75 minutes were spent on this H and P, more than 40 minutes of which was spent in direct [id number] contact with the patient in evaluation , physical exam, and counseling and coordination of care. [id number]/[facility] #: [id number] ALL[place]
[2017-03-25] MEDS: Vancomycin(*) 1,000 MG in NS 0.9% 250 ML* 250 ML IVPB SCH ×2 (14:14→22:08)
[2017-03-25] MEDS: methylPREDNISolone 125 MG* 2 ML VIAL IV SCH (16:30)
[2017-03-25] MEDS: oxyCODONE TAB* 5 MG TAB PO PRN (20:16)
--- NOTE | 2017-03-25 23:17 | CONS ---
MEDICAL ONCOLOGY CONSULTATION NOTE: DATE OF CONSULTATION: 03/25/17 REASON FOR CONSULTATION: Progressive dyspnea in a patient with carcinoma of unknown primary. HISTORY OF PRESENT ILLNESS: Nicole Conn is a 56-year-old female who was originally diagnosed with having a left vocal cord paralysis in May of 2015. A CT scan of the chest was performed at [facility] in late March of 2015 without significant abnormalities. Laryngoscopy was performed by Dr. Carl and was unremarkable in terms of any potential malignancies. There had been some thickening in the postcricoid area on her CT scan. She subsequently had [address] Carl in November and January of 2016. These were both a thyroplasty implants in an attempt to help her vocal cord paralysis. Her voice result was somewhat better, but not ideal. The patient developed increasing shortness of breath prior to each of her thyroplasty. In August of 2016, the patient developed some further issues with the voice and breathing and was seen by Dr. Stevens in [place], [place] at [facility]. She was found to have audible stridor. ENT scope revealed subglottic stenosis. The patient was taken to the operating room and found to have an area of tracheal stenosis just below the cricoid cartilage and limited dilation was performed. CT scan of the neck at that time revealed significant thickening of the tracheal wall and abnormality of the thyroid gland on the left side with possible erosion into the tracheal wall. Fine needle aspiration was suspicious for malignancy. On 10/15/16, the patient underwent an incisional biopsy of the thyroid mass, pathology was consistent with carcinoma. 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 She developed worsening shortness of breath and was found to have a neck hematoma, which was evacuated. She was transferred back to the [facility] and had a tracheostomy performed on 10/28/16. CT scan of the chest in October of 2016 revealed a heterogenous appearance of the thyroid consistent with tumor invasion. In addition, there was presumed metastatic adenopathy in the mediastinum. Bilateral pleural nodules were noted. Pulmonary nodules were also noted and worsened from previous scans. PET MRI was performed on . This was consistent with the thyroid carcinoma, which was FDG avid involving multiple cervical mediastinal, perihilar and paraesophageal lymph nodes as well as multiple pulmonary nodules. Chest CT on 11/08/[address] scan of 2 weeks earlier and had shown progression. There were at least 15 to 20 pulmonary nodules seen in each lung. These lesions measured up to 2 cm in greatest diameter. Her situation was discussed in the tumor conference at [facility] and recommendation made for a lung nodule biopsy. This was performed on 11/10/16 and was nondiagnostic. An EBUS was performed of hilar lymph node on 12/01/16 of 12R lymph node. This revealed metastatic poorly differentiated neoplasm. Stains were positive for CD117 and negative for TTF-1 thyroglobulin. The patient was felt to have a poorly differentiated carcinoma of unknown primary and after further discussion at conferences and among multimodality therapy discussions at [facility], decision was made to treat with a course of radiation therapy along with chemotherapy. Chemotherapy consisted of carboplatin and AUC of 2 and Taxol at a dose of 30 mg per meter squared. Taxol was attenuated to dosing due to issues with liver function. She received most of the planned course of this therapy, but it was discontinued following 4 weeks due to progression of disease. PET scans were obtained on 12/31/16 and then repeated on 02/09/17. On the latter PET scan, she had progressive disease, which included multiple areas of involved bone as well as increased hypermetabolic areas and a lymph node in the neck and chest, involvement in the pleura, abutting the pericardium, hepatobiliary lymph nodes. There was decreased uptake in the thyroid gland in the field of the previous radiation therapy. Radiation therapy was discontinued on 02/20/17. Discussion was held with the patient and with her family and decision made to treat her as a carcinoma of unknown primary with pembrolizumab as immunotherapy. This took several weeks to obtain as it needed to be obtained for compassionate release since it was not FDA approved indications for this medication. While still on the Taxol, she had had allergic reactions to this, which were treated with extra steroids. The patient received her first dose of pembrolizumab on 03/12/17, tolerated it well, but then was admitted to [facility] on 03/13/17 with increasing shortness of breath. She did have a cough and fever to 102.2 at that time. She was found on sputum culture to be positive for pseudomonas. Following a 2-day hospitalization, she was sent home with oral Levaquin, which she has remained on until the present time. The patient and her family report that her O2 saturations have continued to worsen recently. In early January of 2017, she was not on oxygen and these have increased dramatically since then. Her oxygen requirement have seemed to decrease subsequently during the first week of radiation therapy and then again worsened. O2 saturations yesterday were 67% on room air and only to low 80s on 10 L of 50% oxygen. Since being placed on Vapotherm, her breathing feels much better and she has saturations well above 95%. She reports that her breathing yesterday was even worse than when she presented to the hospital 12 days ago. She had been scheduled for her second dose of pembrolizumab for 04/02/17 and at that time was to discuss any genetic information that might lead to targeted treatment being available for her with her physician at [facility] , Dr. Mcclendon. Subsequent to that, hope is to continue pembrolizumab here in [place] as this could be given without her needing to travel. The patient reports soreness in her throat since early 2014, which improved after the radiation therapy. Currently, she is having very little pain there, although she does have some discomfort in the chest. Today, her breathing is okay at rest, but very short of breath with any movement or exertion. She has had some cough, which has been minimally productive. She reports occasional nausea and vomiting, mostly related to the cough, rarely actually vomiting up stomach contents, more just thin materials. She has been able to eat a regular diet and reports she does not believe that she has had any aspiration. PAST MEDICAL HISTORY: Otherwise significant for obstructive sleep apnea, history of benign neoplasm of meninges, history of anxiety, history of hyperlipidemia. Past medical history also significant for hysterectomy, tubal ligation, and thyroid surgery as discussed above. MEDICATIONS: At the time of admission include: 1. Oxycodone 5 mg q.4 hours p.r.n. 2. Fentanyl patch 25 mcg every 3 days. 3. Fluoxetine 40 mg in the morning. 4. Clonazepam 0.5 mg at h.s. p.r.n. 5. Benadryl 12.5 mg p.r.n. h.s. 6. Trileptal 300 mg b.i.d. 7. Levaquin 750 mg daily since 10 days ago. 8. Potassium chloride 20 mEq daily. 9. Magnesium 400 mg b.i.d. ALLERGIES: None. FAMILY HISTORY: Mother with breast cancer at age 53 and second breast cancer on the same side at age 76. Maternal aunt with breast cancer in her 70s. Maternal grandfather carried a diagnosis of lymphosarcoma and at age 61. SOCIAL HISTORY: The patient quit smoking 10 years ago, never alcohol. She is , lives with her , [place]. REVIEW OF SYSTEMS: Her weight has dropped from 220 pounds down to 165 pounds since October. Appetite has been reasonable. GI symptoms as discussed above. Pulmonary symptoms as discussed above. No rashes. No neurologic symptoms. Review of systems is otherwise negative except as discussed above. PHYSICAL EXAM: A 56-year-old female, in no acute distress with Vapotherm on as long as she lies still in bed. Vital Signs: Blood pressure 109/53, pulse 70. T- max into the hospital 100.1 last evening and 97.6 this morning, O2 saturations running 98% to 99% on Vapotherm at 25 L and 100% oxygen. HEENT: PERRL, EOMI. No erythema or exudates. No palpable cervical, supraclavicular, or axillary adenopathy is noted. Heart: Regular rate and rhythm. Lungs: Rhonchi and coarse breath sounds throughout. Abdomen: Soft and nontender without masses or organomegaly. Extremities: No clubbing, cyanosis or edema. Neurologic: Without focal deficits. Back: No CVA or spinal tenderness. DIAGNOSTIC STUDIES/LABA DATA: CBC: White count 8300, hematocrit 30, hemoglobin 9.9, platelet count 462,000, essentially normal differential. Chemistry study: Sodium 132, potassium 3.3, chloride 92, bicarb 33, BUN 10, creatinine 0.5, glucose 116, elevated alk phos at 162, normal transaminases and bilirubin. CRP 151. Albumin is 3.2. Chest x-ray reveals evidence of interstitial markings with thickening in the fissures, small bilateral plural effusions. It is read as most consistent with congestive heart failure, but more likely represents pneumonitis. Thickening in the pleura bilaterally. Most recent CT scan of 03/13/17, there was no evidence for any pulmonary emboli. There was significant increased thickening of the pleura bilaterally compared to October of 2016. In addition, there was increased adenopathy noted. IMPRESSION: A 56-year-old female with carcinoma of unknown primary, who has had disease progressed despite radiation therapy to the site of most bothersome disease in the trachea along with the carboplatin and Taxol given over the course of 5 weeks completed in January of 2017. She has had one dose of pembrolizumab given at [facility] obtained through compassionate release. Her breathing has markedly worsened over the past couple of weeks. She currently is requiring Vapotherm to maintain adequate oxygenation. I am extremely concerned that this may not represent just infection, but could also represent a pneumonitis either from the pembrolizumab or as a result of her primary malignancy. Situation has been discussed with Dr. Quick of the hospitalist service here with the patient and her family and then this afternoon with her medical oncologist at [facility], Dr. Maikol Mcclendon. Even though we do not have proof of this being pneumonitis, the best option of her trying to improve the situation with the potential pneumonitis would be a course of steroids. Solu-Medrol has been ordered at approximately 1 mg/kg b.i.d. or dose of 60 mg b.i.d. First dose in the afternoon. She has already been placed on broad-spectrum antibiotics, which is certainly appropriate and will be maintained on these pending culture. She currently is on vancomycin at a dose of 1000 mg q.8 hours and on Zosyn 3.375 g q.8 hours by extended infusion. Zithromax at 250 mg daily. Situation will continue to be readdressed and updated on a frequent basis. I have discussed the possibility of other therapies with Dr. Mcclendon, who reports although this information not yet been given to the patient, which will be given to her at her office visit of 04/02/17. There do not appear to be any significant targetable mutations that they would consider treating at [facility]. Recommendation, if her breathing improves, would be to continue on pembrolizumab which was only started 2 weeks ago with standard dosing at 200 mg every 3 weeks intravenously. Clearly one would like to avoid as much as we can in the terms of steroids but given the possibility of pneumonitis either from the disease process itself or from the pembrolizumab, Solu-Medrol makes sense to be continued at the present time. If the patient were to continue to worsen, possibility of bronchoscopy for culture and/or for evidence for further pneumonitis should certainly be considered. [id number]/[facility] #: [id number] [facility] HEALTH NETWORKHarsh
[2017-03-26] MEDS: ZOSYN 3.375 GM Q8H per EXTENDED INFUSION IVPB SCH ×6 (00:20→16:38)
[2017-03-26] MEDS: Heparin VIAL(*) 5000 UNITS/ML VIAL (FIVE THOUSAND) SUBCUT SCH (05:12)
[2017-03-26] MEDS: methylPREDNISolone 125 MG* 2 ML VIAL IV SCH ×2 (05:12→16:38)
[2017-03-26] MEDS: Azithromycin IV(*) 500 MG in NS 0.9% 250 ML* 250 ML IVPB SCH (05:12)
[2017-03-26 05:25] LABS: Hematocrit 24 % (35-47); Hemoglobin 8.1 g/dl (12.0-16.0); Mean Corpuscular HGB Conc 33 g/dl (31-36); Mean Corpuscular Hemoglobin 28 pg (27-31); Mean Corpuscular Volume 83 fL (80-97); Mean Platelet Volume 7 um3 (7.4-10.4); Red Blood Count 2.93 10^6/ul (4.0-5.4)
[2017-03-26 05:28] LABS: Comments Flag Yes; Red Cell Distribution Width 24 % (10.5-15)
[2017-03-26] MEDS ORDERED: Vancomycin Trough Check NOTE FOLLOW UP ONE (05:30)
[2017-03-26 05:39] LABS: Albumin 2.7 g/dL (3.2-5.2); BUN/Creatinine Ratio 27.8 (8-20); EGFR African American 149.1 (>60); Globulin 3.4 g/dL (2-4); Potassium 3.6 mmol/L (3.5-5.0); Total Bilirubin 0.4 mg/dL (0.2-1.0); Total Protein 6.1 g/dL (6.4-8.9)
[2017-03-26 06:05] LABS: Vancomycin Trough 15.1 mcg/mL
[2017-03-26] MEDS: Vancomycin(*) 1,000 MG in NS 0.9% 250 ML* 250 ML IVPB SCH ×3 (06:52→21:37)
[2017-03-26] MEDS: fentaNYL Patch Check Q Shift 1 NOTE SCH ×3 (07:34→18:53)
[2017-03-26 08:04] LABS: C Reactive Protein 152.33 mg/L (< 5.00)
[2017-03-26] MEDS: Potassium Chlor TAB* 20 MEQ TAB.ER PO SCH (10:14)
[2017-03-26] MEDS: OXcarbazepine TAB(*) 300 MG PO SCH ×2 (10:14→20:58)
[2017-03-26] MEDS: FLUoxetine CAP* 20 MG PO SCH (10:14)
[2017-03-26] MEDS: Magnesium Oxide TAB* 400 MG PO SCH ×2 (10:14→20:58)
--- NOTE | 2017-03-26 12:38 | PN ---
Critical Care Services: Less SOB since admisssion, and currently is breathing comfortably. Has been afebrile since admission. Vital Signs: Temp Pulse Resp BP SpO2 FiO2 97.7 F 90 17 105/52 89 60 Physical Exam: Gen: HEENT: Lungs: Cardiac: Abdomen: Extremities: Neuro: Fluid Balance (Past 24 Hours): 03/26/17 06:59 Intake Total 2215 Output Total 0 Balance 2215 Weight 168 lb Intake: IV Fluids 395 ABX 380 Normal Saline 15 IVPB 1150 ABX 1150 Oral 670 Output: Urine 0 Other: Estimated Void Medium # Voids 1 Labs: 03/26/17 03/26/17 05:10 05:10 WBC 5.0 Hgb 8.1 Hct 24 MCV 83 Plt Count 423 Sodium 136 Potassium 3.6 Chloride 98 Carbon Dioxide 34 Anion Gap 4 BUN 15 Creatinine 0.54 Glucose 126 Calcium 9.0 Total Bilirubin 0.40 AST 42 H ALT 39 Alkaline Phosphatase 117 H C-Reactive Protein 152.33 Total Protein 6.1 L Albumin 2.7 Vancomycin Trough 15.1 Studies: Cultures of blood and sputum - negative so far. Urine negative for pneumococcal and legionella antigens. Nutrition: Regular diet Impression: Respiratory failure secondary to pneumonitis - may be noninfectious - in fact, may be a manifestation of pulmonary oxygen toxicity (the combination of radiation and O2 breathing is high-risk for O2 toxicity). Plan: 1. Reduce inhaled O2 as quickly as possible. 2. D/C antibiotics if cultures continue to be negative. 3. Start antioxidant Rx with acetylcysteine, selenium, vitamins C and E. Critical Care Time: 40 minutes (not including time spent with family)
[2017-03-26] MEDS: Enoxaparin(*) 40 MG/0.4 ML SYR SUBCUT SCH (13:34)
[2017-03-26] MEDS: oxyCODONE TAB* 5 MG TAB PO PRN (20:58)
[2017-03-26] MEDS: clonazePAM TAB(*) 0.5 MG PO PRN (20:58)
[2017-03-26] MEDS: Acetylcysteine CAP (RENAL)* 600 MG PO SCH (20:58)
[2017-03-27] MEDS: ZOSYN 3.375 GM Q8H per EXTENDED INFUSION IVPB SCH ×6 (00:50→16:24)
[2017-03-27] MEDS: methylPREDNISolone 125 MG* 2 ML VIAL IV SCH ×2 (03:29→16:24)
[2017-03-27] MEDS: oxyCODONE TAB* 5 MG TAB PO PRN ×4 (03:30→22:51)
[2017-03-27] MEDS: Azithromycin IV(*) 500 MG in NS 0.9% 250 ML* 250 ML IVPB SCH (05:03)
[2017-03-27] MEDS: Vancomycin(*) 1,000 MG in NS 0.9% 250 ML* 250 ML IVPB SCH (06:28)
[2017-03-27 06:54] LABS: Hematocrit 29 % (35-47); Hemoglobin 9.3 g/dl (12.0-16.0); Mean Corpuscular HGB Conc 33 g/dl (31-36); Mean Corpuscular Hemoglobin 27 pg (27-31); Mean Corpuscular Volume 83 fL (80-97); Mean Platelet Volume 7 um3 (7.4-10.4); Red Blood Count 3.42 10^6/ul (4.0-5.4); Red Cell Distribution Width 24 % (10.5-15); White Blood Count 3.6 10^3/ul (3.5-10.8)
[2017-03-27 06:55] LABS: Comments Flag Yes
[2017-03-27] MEDS: fentaNYL Patch Check Q Shift 1 NOTE SCH ×2 (07:12→18:48)
[2017-03-27] MEDS: OXcarbazepine TAB(*) 300 MG PO SCH ×2 (08:52→22:51)
[2017-03-27] MEDS: Potassium Chlor TAB* 20 MEQ TAB.ER PO SCH (08:52)
[2017-03-27] MEDS: Magnesium Oxide TAB* 400 MG PO SCH ×2 (08:52→22:50)
[2017-03-27] MEDS: Acetylcysteine CAP (RENAL)* 600 MG PO SCH ×2 (08:52→22:50)
[2017-03-27] MEDS: Vitamin E CAP* 400 UNIT PO SCH (08:52)
[2017-03-27] MEDS: FLUoxetine CAP* 20 MG PO SCH (08:52)
--- NOTE | 2017-03-27 09:04 | PN ---
Critical Care Services: Sputum growing Pseudomonas, but the significance of this is in question (sputum Gram's stain shows only occasional gram-negative rods). This is being covered with PIP/TAZO, and I have started antioxidant Rx (with acetylcysteine, selenium , and vitamin E) to cover for possible O2 toxicity. This AM, patient is up in bed eating breakfast, and has no complaints of SOB. Vital Signs: Temp Pulse Resp BP SpO2 FiO2 96.9 F 70 20 104/65 92 45 NOTE: O2 flow at 30 L/min Physical Exam: Gen:Alert, oriented, breathing comfortably. HEENT:On O2 by trach collar Lungs:Crackles at right base posteriorly (partially clears with deep breaths). No wheezes. Extremities:No cyanosis or edema Fluid Balance (Past 24 Hours): 03/27/17 06:59 Intake Total 2537 Output Total 1500 Balance +1037 Weight Intake: IV Fluids 1587 ABX 883 Normal Saline 704 IVPB ABX Oral 950 Output: Urine 1500 Other: Estimated Void Medium # Voids 1 Labs: 03/27/17 06:30 WBC 3.6 Hgb 9.3 L Hct 29 L MCV 83 Plt Count 405 Studies: Micro: Sputum 1+Pseudomonas, blood cultures negative. Nutrition: Regular diet Impression: 1. Possible (not probable) pseudomonas pneumonia. Is clinically improving (in terms of gas exchange). 2. Borderline leukopenia Plan: 1. Taper antibiotic coverage to PIP/TAZO only. Will add second antipseudomonal drug if clinical condition deteriorates, or leukopenia worsens. 2. Will continue to reduce inhaled O2 as tolerated. 3. Further management per oncology service.
[2017-03-27] MEDS: SELENIUM 200 MCG PO SCH (09:23)
[2017-03-27] MEDS: Enoxaparin(*) 40 MG/0.4 ML SYR SUBCUT SCH (13:54)
[2017-03-27] MEDS: clonazePAM TAB(*) 0.5 MG PO PRN (22:52)
[2017-03-28] MEDS: ZOSYN 3.375 GM Q8H per EXTENDED INFUSION IVPB SCH ×6 (00:10→16:41)
[2017-03-28] MEDS: fentaNYL PATCH 25 MCG/HR TRANSDERM SCH (04:44)
[2017-03-28] MEDS: methylPREDNISolone 125 MG* 2 ML VIAL IV SCH ×2 (04:46→16:40)
[2017-03-28 05:15] LABS: Hematocrit 27 % (35-47); Hemoglobin 8.7 g/dl (12.0-16.0); Mean Corpuscular HGB Conc 33 g/dl (31-36); Mean Corpuscular Hemoglobin 27 pg (27-31); Mean Corpuscular Volume 83 fL (80-97); Mean Platelet Volume 7 um3 (7.4-10.4); Red Blood Count 3.21 10^6/ul (4.0-5.4); White Blood Count 3.8 10^3/ul (3.5-10.8)
[2017-03-28 05:17] LABS: Comments Flag Yes; Red Cell Distribution Width 24 % (10.5-15)
[2017-03-28] MEDS: fentaNYL Patch Check Q Shift 1 NOTE SCH ×2 (06:44→18:56)
[2017-03-28] MEDS: FLUoxetine CAP* 20 MG PO SCH (08:17)
[2017-03-28] MEDS: Potassium Chlor TAB* 20 MEQ TAB.ER PO SCH (08:17)
[2017-03-28] MEDS: Vitamin E CAP* 400 UNIT PO SCH (08:17)
[2017-03-28] MEDS: OXcarbazepine TAB(*) 300 MG PO SCH ×2 (08:18→20:58)
[2017-03-28] MEDS: Acetylcysteine CAP (RENAL)* 600 MG PO SCH (08:18)
[2017-03-28] MEDS: SELENIUM 200 MCG PO SCH (08:18)
[2017-03-28] MEDS: Magnesium Oxide TAB* 400 MG PO SCH ×2 (08:19→20:58)
[2017-03-28] MEDS: Enoxaparin(*) 40 MG/0.4 ML SYR SUBCUT SCH (13:53)
[2017-03-28] MEDS: oxyCODONE TAB* 5 MG TAB PO PRN ×2 (13:56→20:59)
[2017-03-28] MEDS ORDERED: Senna TAB PO ONE (20:00)
[2017-03-28] MEDS: clonazePAM TAB(*) 0.5 MG PO PRN (20:59)
[2017-03-29] MEDS: ZOSYN 3.375 GM Q8H per EXTENDED INFUSION IVPB SCH ×4 (00:06→08:32)
[2017-03-29] MEDS: methylPREDNISolone 125 MG* 2 ML VIAL IV SCH (04:11)
[2017-03-29 06:43] LABS: Hematocrit 28 % (35-47); Hemoglobin 9.1 g/dl (12.0-16.0); Mean Corpuscular HGB Conc 32 g/dl (31-36); Mean Corpuscular Hemoglobin 27 pg (27-31); Mean Corpuscular Volume 83 fL (80-97); Mean Platelet Volume 7 um3 (7.4-10.4); Red Blood Count 3.37 10^6/ul (4.0-5.4); White Blood Count 4.6 10^3/ul (3.5-10.8)
[2017-03-29 06:46] LABS: Comments Flag Yes; Red Cell Distribution Width 24 % (10.5-15)
[2017-03-29 07:00] LABS: BUN/Creatinine Ratio 22.6 (8-20); Calcium 9.2 mg/dL (8.6-10.3); EGFR African American 89.6 (>60); EGFR Non-African American 69.6 (>60); Potassium 3.8 mmol/L (3.5-5.0)
[2017-03-29] MEDS: fentaNYL Patch Check Q Shift 1 NOTE SCH (07:03)
[2017-03-29] MEDS: Vitamin E CAP* 400 UNIT PO SCH (08:32)
[2017-03-29] MEDS: Magnesium Oxide TAB* 400 MG PO SCH (08:32)
[2017-03-29] MEDS: FLUoxetine CAP* 20 MG PO SCH (08:32)
[2017-03-29] MEDS: OXcarbazepine TAB(*) 300 MG PO SCH (08:32)
[2017-03-29] MEDS: SELENIUM 200 MCG PO SCH (08:33)
[2017-03-29] MEDS: Potassium Chlor TAB* 20 MEQ TAB.ER PO SCH (08:35)
[2017-03-29 12:12] VITALS: BP 113/63
== END 2017-03-29 11:00 | disposition home or self-care (01) | DRG 137 ==
LOC: ED 23:52 → ICU 03-25 04:13 → MED 03-27 11:14
PROVIDERS: ADMIT Internal Medicine; ATTEND Internal Medicine Hematology & Oncology
DX: J15.1 Pneumonia due to Pseudomonas (principal); J96.20 Acute and chronic respiratory failure, unspecified whether with hypoxia or hypercapnia; C78.00 Secondary malignant neoplasm of unspecified lung; C78.7 Secondary malignant neoplasm of liver and intrahepatic bile duct; I50.9 Heart failure, unspecified; C80.1 Malignant (primary) neoplasm, unspecified; D72.819 Decreased white blood cell count, unspecified; C79.70 Secondary malignant neoplasm of unspecified adrenal gland; C79.89 Secondary malignant neoplasm of other specified sites; G47.33 Obstructive sleep apnea (adult) (pediatric); F41.9 Anxiety disorder, unspecified; F32.9 Major depressive disorder, single episode, unspecified; E78.5 Hyperlipidemia, unspecified; J38.01 Paralysis of vocal cords and larynx, unilateral; D32.9 Benign neoplasm of meninges, unspecified; Z80.8 Family history of malignant neoplasm of other organs or systems; Z90.710 Acquired absence of both cervix and uterus; Z98.51 Tubal ligation status; Z82.49 Family history of ischemic heart disease and other diseases of the circulatory system; Z80.3 Family history of malignant neoplasm of breast; Z87.891 Personal history of nicotine dependence; Z72.89 Other problems related to lifestyle; Z93.0 Tracheostomy status
CPT/HCPCS: 36415; 71020; 80048; 80053; 80202; 82550; 83605; 83880; 84484; 85025; 85027; 86140; 87040; 87070; 87077; 87186; 87205; 87641; 87899; 93005; 94640; 94760; A9270-GY; J0456; J0692; J1644; J1650; J2543; J2930; J3370

== ENCOUNTER 2017-04-10 10:42 | Inpatient (IN) | payer BC ==
[2017-04-10] MEDS ORDERED: Albuterol/Ipratropium NEB.SOL* Albuterol 2.5 MG/Ipratropium 0.5 MG 3 ML INH ONE (11:48)
[2017-04-10 12:10] LABS: Albumin 3.6 g/dL (3.2-5.2); BUN/Creatinine Ratio 9.9 (8-20); Calcium 9.9 mg/dL (8.6-10.3); EGFR African American 93.4 (>60); EGFR Non-African American 72.6 (>60); Globulin 3.5 g/dL (2-4); Potassium 3.7 mmol/L (3.5-5.0); Total Bilirubin 0.6 mg/dL (0.2-1.0); Total Protein 7.1 g/dL (6.4-8.9)
[2017-04-10] MEDS ORDERED: Iohexol 350* (CONTRAST) 500 ML MDV IV ONE (12:34)
--- NOTE | 2017-04-10 13:32 | RAD ---
INDICATION: Tracheostomy. Shortness of breath, wheezing. History of complex pneumonia. COMPARISON: March 25, 2017 chest radiograph and March 13, 2017 CT. TECHNIQUE: Multidetector CT images were obtained from the lung apices to the upper abdomen with 64 mL Omnipaque 300 IV contrast. Pulmonary angiogram protocol. Multiplanar reformation including with maximum intensity projection. REPORT: Significant progression of bilateral diffuse pleural-based nodularity as well as diffuse prominence of interstitial markings and soft tissue density and groundglass opacities. Nodular thickening along the RIGHT major fissure measures up to 1.4 cm AP compared with 1.1 cm previously. Soft tissue density nodule at the lingula measures up to 1.1 x 2.5 cm compared without significant change. Small bilateral pleural effusions without significant change. Negative for pneumothorax. Tracheostomy tube in place. No central endobronchial lesions evident. Mediastinal and bilateral hilar adenopathy with interval worsening. Subcarinal node measures up to 2.5 cm short axis compared with 1.7 cm previously. RIGHT suprahilar node measures up to 1.5 cm short axis compared with 1.3 cm previously. LEFT infrahilar node measures up to 1.4 cm AP compared with 1.0 cm previously. Negative for cardiomegaly or pericardial effusion. Normal diameter thoracic aorta. No filling defects are identified from the main to the subsegmental pulmonary arteries to indicate presence of a pulmonary embolism. Images through the upper abdomen are remarkable for multiple hypodense hepatic parenchymal lesions measuring up to 2.3 x 1.8 and 1.8 x 1.6 cm at the dome of the liver and potential additional 1.5 x 1.4 cm lesion at the LEFT hepatic lobe. The incompletely visualized spleen appears enlarged. Negative for suspicious focal thoracic lesions. IMPRESSION: 1. No evidence for pulmonary embolism. 2. The constellation of findings is suspicious for thoracic metastatic disease with progression with involvement of the pleura and pulmonary parenchyma. 2. Probable focal lesions at the liver. If not previously performed tissue sampling of irregular pleura or potentially a liver lesion is suggested for histopathologic assessment.
[2017-04-10 14:03] LABS: Hematocrit 31 % (35-47); Hemoglobin 10.2 g/dl (12.0-16.0); Mean Corpuscular HGB Conc 33 g/dl (31-36); Mean Corpuscular Hemoglobin 28 pg (27-31); Mean Corpuscular Volume 85 fL (80-97); Mean Platelet Volume 9 um3 (7.4-10.4); Red Blood Count 3.67 10^6/ul (4.0-5.4); Red Cell Distribution Width 23 % (10.5-15); White Blood Count 6.9 10^3/ul (3.5-10.8)
[2017-04-10 14:05] LABS: Add Diff/Slide Review? Slide Review Added; Comments Flag Yes
[2017-04-10] MEDS ORDERED: Levalbuterol 1.25MG/0.5ML NEB INH PRN (15:03)
[2017-04-10] MEDS ORDERED: Acetaminophen TAB* 325 MG PO PRN (15:06)
[2017-04-10] MEDS ORDERED: fentaNYL PATCH 25 MCG/HR TRANSDERM SCH (16:00)
[2017-04-10] MEDS: Enoxaparin(*) 40 MG/0.4 ML SYR SUBCUT SCH (16:52)
[2017-04-10] MEDS: methylPREDNISolone 125 MG* 2 ML VIAL IV SCH ×2 (16:52→23:20)
--- NOTE | 2017-04-10 17:13 | ECHO ---
Patient: JESSI ANSARI [facility] Rec#: [id number] : 1960 Date: 04/10/2017 Age: 56y Height: 157.48 cm / 62.0 in Weight: 69.85 kg / 153.9 lbs Sex: F BSA: 1.71 Room#: [id number] Admit Date#: 04/10/2017 Type: Inpatient Referring: Darryn Hu MD Reading: Gordon Farrell MD Repairer Helper: Hui PappasNEW MEXICO [facility] Transthoracic Echocardiogram Indication: Shortness of breath BP: 121/74 HR: 103 Rhythm: Tachycardia Findings History: Metastatic cancer to thyroid, lungs, liver, adrenal glands, hips, and jaw, former smoker, JAISON, HLD, recent pneumonia. Technical Comments: The study quality is poor. The study is technically limited due to poor acoustic windows. The study was technically limited due to the patient's inability to lay in the left lateral decubitus position. Completed at 1630. Left Ventricle: The left ventricular chamber size is decreased. Mild to moderate concentric left ventricular hypertrophy is observed. Global left ventricular wall motion and contractility are within normal limits. The left ventricle appears hyperdynamic. The estimated ejection fraction is greater than 65%. Abnormal left ventricular diastolic function is observed. There is an E to A reversal in the mitral valve flow pattern suggestive of diastolic dysfunction. Left Atrium: The left atrial chamber size is normal. Right Ventricle: The right ventricular cavity size is normal. The right ventricular global systolic function is low normal. Right Atrium: The right atrium is slightly dilated. Aortic Valve: The aortic valve is trileaflet. The aortic valve leaflets are mildly thickened. There is a trace of aortic regurgitation. There is no evidence of aortic stenosis. Mitral Valve: The mitral valve leaflets are mildly thickened. There is trace to mild mitral regurgitation. There is no evidence of mitral stenosis. Tricuspid Valve: The tricuspid valve leaflets are normal. There is mild tricuspid regurgitation. There is evidence that pulmonary hypertension may be underestimated. There is no tricuspid stenosis. Pulmonic Valve: The pulmonic valve appears normal. There is a trace pulmonic regurgitation. There is no pulmonic stenosis. Pericardium: There is a small pericardial effusion. There are no signs of significant hemodynamic compromise. There is a circumferential pericardial effusion.1.1 cm anechoic rim posteriorly in PLAX. Inferiorly in PSAX measuring 0.7 cm Doppler variation: TV: 34% LVOT: 7% MV: 25% A pericardial fat pad is visualized. Aorta: There is no dilatation of the ascending aorta. The aortic arch is not well visualized. There is no dilation of the aortic root. Pulmonary Artery: The main pulmonary artery appears normal. Venous: The inferior vena cava appears normal in size. There is a greater than 50% respiratory change in the inferior vena cava dimension. Summary: There was not any prior study for comparison. Conclusions The study quality is poor. Mild to moderate concentric left ventricular hypertrophy is observed. The left ventricle appears hyperdynamic. There is an E to A reversal in the mitral valve flow pattern suggestive of diastolic dysfunction. The right ventricular global systolic function is low normal. The right atrium is slightly dilated. The aortic valve leaflets are mildly thickened. There is a trace of aortic regurgitation. There is trace to mild mitral regurgitation. There is mild tricuspid regurgitation. There is evidence that pulmonary hypertension may be underestimated. There is a trace pulmonic regurgitation. There is a small pericardial effusion. There are no signs of significant hemodynamic compromise. Measurements Name Value Normal Range RVIDd (AP) 2D 1.8 cm (0.9 - 2.6) RVDdMajor (2D) 3.8 cm (2.2 - 4.4) RVAW (2D) 0.9 cm (0.2 - 0.5) RAd ISD 4CH 4.1 cm (3.4 - 4.9) RA (A4C)W 3.8 cm (2.9 - 4.6) IVSd (2D) 1.2 cm (0.6 - 1) LVPWd (2D) 1.2 cm (0.6 - 1) LVIDd (2D) 2.8 cm (3.6 - 5.4) LVIDs (2D) 1.8 cm - LV FS (2D) 36 % (25 - 45) Aortic Annulus 1.9 cm (1.4 - 2.6) Ao root diameter (2D) 3.1 cm (2.1 - 3.5) Ascending Ao 2.9 cm (2.1 - 3.4) LA dimension (AP) 2D 1.8 cm (2.3 - 3.8) LAd ISD 4CH 4.7 cm (2.9 - 5.3) LA ISD 4CH W 3.5 cm (2.5 - 4.5) Name Value Normal Range LA ESV SP 4CH (A/L) 38 ml - LA ESV SP 2CH (A/L) 40 ml - LA ESV BP (A/L) 42 ml - LA ESV BP (A/L) index 24.31 ml/m2 - LA ESV SP 4CH (MOD) 36 ml - LA ESV SP 2CH (MOD) 35 ml - Name Value Normal Range MV E-wave Vmax 0.63 m/sec - MV deceleration time 241.9 msec - MV A-wave Vmax 1.04 m/sec - MV E:A ratio 0.61 ratio - LV septal e' Vmax 0.04 m/sec - LV lateral e' Vmax 0.07 m/sec - LV E:e' septal ratio 15.75 ratio - LV E:e' lateral ratio 9 ratio - Name Value Normal Range AV Vmax 1.4 m/sec - AV VTI 20.9 cm - AV peak gradient 7.82 mmHg - AV mean gradient 4.83 mmHg - LVOT Vmax 1.12 m/sec - LVOT VTI 19.6 cm - LVOT peak gradient 5.04 mmHg - LVOT mean gradient 2.77 mmHg - Name Value Normal Range TR Vmax 1.23 m/sec - TR peak gradient 6 mmHg - RAP 3 mmHg - RVSP 9 mmHg - IVC diameter 1.5 cm - Name Value Normal Range PV Vmax 0.87 m/sec - PV peak gradient 3.06 mmHg -
[2017-04-10] MEDS: fentaNYL Patch Check Q Shift 1 NOTE SCH (18:49)
[2017-04-10] MEDS: oxyCODONE TAB* 5 MG TAB PO PRN (20:36)
[2017-04-10] MEDS: OXcarbazepine TAB(*) 300 MG PO SCH (20:36)
[2017-04-10] MEDS: Senna TAB PO SCH (20:37)
[2017-04-10] MEDS: clonazePAM TAB(*) 0.5 MG PO PRN (22:20)
--- NOTE | 2017-04-11 04:41 | HP ---
CC: Dr. Trujillo * HISTORY AND PHYSICAL: DATE OF ADMISSION: 04/10/17 REASON FOR ADMISSION: Shortness of breath. IDENTIFICATION: A 56-year-old female with poorly differentiated carcinoma of the thyroid, on salvage immunotherapy. HISTORY OF PRESENT ILLNESS: A 56-year-old female, who has been treated for a very aggressive thyroid cancer. Originally treated at [facility] and then came under the care of Dr. Trujillo in late February. She had been admitted from 03/25/17 to 03/29/17 with severe shortness of breath after a dose 1 of pembrolizumab. During that hospitalization, she was found to pseudomonas in the sputum and was treated with a long course of antibiotics. She was also thought to have pneumonitis based on her CT scan and was treated with steroids, ultimately tapered off 1 week ago. During the prior hospitalization, her breathing improved significantly. Dr. Trujillo managed her care in consultation with her physician down at [facility]. She was home for about 4 days, did well, and then started to have increasing shortness of breath. Over the past 3 days, she noticed more tightness in her chest and more shortness of breath. She received her cycle 2 of pembrolizumab yesterday. Tolerated the infusion well. This morning, had decrease in oxygen saturations. She usually runs in the 90s, but had gone down into the 80s and she saw one reading that was 72%. This triggered coming to the emergency room. Her son had increased her oxygen yesterday to 8 L into her trach mask. She has not had fevers or chills. No palpitations. She has not had increased cough. She otherwise tolerated her chemotherapy well. In the emergency room, temperature 99, BP 121/74, pulse 108, respirations 20, and sat 92% on 8 L to the trach mask. She feels the same in the emergency room as she did at home. She had a CT angiogram that did not show a PE, but she does have diffuse increased infiltrates on her CT scan as compared to 03/13/17. She also has increasing interstitial disease anteriorly and inferiorly with a question of increased pleural caking towards the bases. The alveolar disease is patchy and bilateral, but a clear change from 03/13/17. PAST MEDICAL HISTORY: 1. History of poorly differentiated carcinoma of the thyroid. a. Presented in May 2015 for vocal cord paralysis. b. 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 c. Biopsy, pulmonary nodule, poorly differentiated carcinoma, CD117 positive. d. Carboplatin and Taxol chemotherapy approximately from November 2016 to January 2017, progressive disease. e. 03/12/17 pembrolizumab one dose. Course complicated by hospitalization as noted above. f. Pembrolizumab #2, 04/09/17. 2. Obstructive sleep apnea. 3. Anxiety. 4. Hyperlipidemia. 5. Obesity. MEDICATIONS: At home: 1. Oxycodone 5 mg q.4 p.r.n. 2. Fentanyl patch 25 mcg q.3 days. 3. Fluoxetine 20 mg daily. 4. Clonazepam 0.5 mg at night. 5. Nebulizers. 6. Potassium chloride 20 mEq a day. 7. Magnesium 400 mg b.i.d. ALLERGIES: None. FAMILY HISTORY: Mother with breast cancer, 53 and then 76. Maternal aunt with breast cancer in her 70s. Maternal grandfather, lymphosarcoma, at 61. SOCIAL HISTORY: Quit smoking 10 years ago. , lives with . In the clinic with her and her sons. REVIEW OF SYSTEMS: Dominated by increasing shortness of breath. A 14-point review of systems negative except for otherwise as reviewed above. PHYSICAL EXAMINATION VITAL SIGNS: Pulse 108, BP 121/70, pulse ox 96% on 7 L trach collar. HEENT: Pale, mucosa moist. She has tracheostomy that is clean and no exudate. LUNGS: Wheezes bilaterally, no crackles, and low breath sounds. HEART: Tachycardic. S1, S2. Regular rate and rhythm. Obese, nontender, nondistended. No hepatosplenomegaly. EXTREMITIES: She has good pulses. They are warm and she has no edema. NEUROLOGIC: Alert and oriented x3. Grossly moving all 4 extremities. NODES: No peripheral lymphadenopathy. SKIN: No clear lesions or rashes. DIAGNOSTIC STUDIES/LAB DATA: As noted above, plus CBC with hemoglobin 10.2, white count 6.9, platelets 361. She has a creatinine of 0.81. Mildly elevated AST and ALT and alkaline phosphatase. Albumin at 3.6. CT scan as noted above. ASSESSMENT AND PLAN: A 56-year-old female with poorly differentiated carcinoma of thyroid origin with diffuse pulmonary and mediastinal metastases. She has had rapid progression since December despite been treated with carboplatin and Taxol , as well as radiation. Now, one day after a second dose of pembrolizumab with acute increase in shortness of breath. Differential diagnosis includes progressive cancer, tumor flare secondary to pembrolizumab, pembrolizumab- induced pneumonitis, recurrent infection, possibly complicated by just chronic obstructive pulmonary disease. We discussed the broad differential and the use of steroids. Steroids will decrease the effectiveness of immunotherapy, but in this setting, we need to reverse her acute decompensation. If she is not found to have infection, may need to consider either hospice or changing to traditional chemotherapy. We cannot say at this time whether pembrolizumab will be effective, but the disease may progress at a pace that does not allow immunotherapy, sufficient leave time to effect positive change. 1. We are going to continue her home medications except for the potassium which we will be following. 2. Solu-Medrol 60 mg IV q.8 today and we will try and taper as rapidly as possible. 3. Recent sputum cultures, hold antibiotics unless she has a fever. 4. We will put her on Xopenex nebulizers. 5. DVT prophylaxis per protocol. 6. Full code at this time. Family was receptive to hospice as the potential course, but we did not change her code status tonight. 7. No clear evidence of failure, but we will check a BNP and send her for an echocardiogram to make sure cardiac function is not a factor. [id number]/CPS #: [id number] MTDD
[2017-04-11] MEDS: fentaNYL Patch Check Q Shift 1 NOTE SCH ×2 (06:19→18:47)
[2017-04-11] MEDS: methylPREDNISolone 125 MG* 2 ML VIAL IV SCH ×3 (08:02→22:55)
[2017-04-11] MEDS: FLUoxetine CAP* 20 MG PO SCH (08:02)
[2017-04-11] MEDS: Senna TAB PO SCH ×2 (08:02→22:32)
[2017-04-11] MEDS: Magnesium Oxide TAB* 400 MG PO SCH (08:02)
[2017-04-11] MEDS: OXcarbazepine TAB(*) 300 MG PO SCH ×2 (08:02→22:55)
[2017-04-11 10:29] LABS: Hematocrit 30 % (35-47); Hemoglobin 9.8 g/dl (12.0-16.0); Mean Corpuscular HGB Conc 33 g/dl (31-36); Mean Corpuscular Hemoglobin 28 pg (27-31); Mean Corpuscular Volume 85 fL (80-97); Mean Platelet Volume 8 um3 (7.4-10.4); Red Blood Count 3.56 10^6/ul (4.0-5.4); White Blood Count 4.7 10^3/ul (3.5-10.8)
[2017-04-11 10:32] LABS: Add Diff/Slide Review? Slide Review Added; Comments Flag Yes; Red Cell Distribution Width 23 % (10.5-15)
[2017-04-11 10:40] LABS: Albumin 3.6 g/dL (3.2-5.2); BUN/Creatinine Ratio 17.1 (8-20); Calcium 9.8 mg/dL (8.6-10.3); EGFR African American 92.1 (>60); EGFR Non-African American 71.6 (>60); Globulin 3.7 g/dL (2-4); Potassium 4.1 mmol/L (3.5-5.0); Total Bilirubin 0.5 mg/dL (0.2-1.0); Total Protein 7.3 g/dL (6.4-8.9)
[2017-04-11] MEDS ORDERED: Iohexol 300* (CONTRAST) 10 ML SDV IV ONE (10:52)
--- NOTE | 2017-04-11 12:16 | RAD ---
Indication: Numbness on the left side of the face. History of lung cancer. Contrast: Administered 75.0 ml of OMNIPAQUE 300 mg/ml CT of the brain was performed without and with IV contrast. Comparison is made with previous exam dated April 02, 2004. Ventricular structures are midline. No midline shift is noted. The extra-axial spaces are unremarkable. There is no evidence of intracranial mass or hemorrhage. No other high or low density lesions are identified. No definite abnormal enhancing lesions are noted in the cerebral hemispheres. Paranasal sinuses are otherwise unremarkable. Mastoid air cells are otherwise unremarkable. The bony calvaria demonstrates lucent areas in the extra-axial space in the left parietal area and high in the right parietal convexity. Additional lucent area high in the left parietal convexity is also present. These were not present previously and are nonspecific. Additional hyperostosis is noted along the right greater wing of the sphenoid. Calvarial metastasis are not excluded. IMPRESSION: No intracranial mass or hemorrhage is noted. No enhancing lesions are identified within the brain. Lucent areas in the diploic space in the left parietal, high in the right parietal convexity and high in the left parietal convexity is noted. There is also sclerosis and hypertrophy in the right greater wing of the sphenoid. These were not present previously and the possibility of metastatic lesions in the skull are not excluded.
[2017-04-11] MEDS: Enoxaparin(*) 40 MG/0.4 ML SYR SUBCUT SCH (16:10)
[2017-04-11] MEDS ORDERED: Ondansetron INJ* 2 MG/ML VIAL IV PRN (21:57)
[2017-04-11] MEDS: oxyCODONE TAB* 5 MG TAB PO PRN (22:54)
[2017-04-11] MEDS: clonazePAM TAB(*) 0.5 MG PO PRN (22:55)
[2017-04-12] MEDS: fentaNYL Patch Check Q Shift 1 NOTE SCH (07:24)
[2017-04-12 07:40] VITALS: BP 107/66
[2017-04-12] MEDS: Senna TAB PO SCH (08:17)
[2017-04-12] MEDS: OXcarbazepine TAB(*) 300 MG PO SCH (08:17)
[2017-04-12] MEDS: Magnesium Oxide TAB* 400 MG PO SCH (08:17)
[2017-04-12] MEDS: FLUoxetine CAP* 20 MG PO SCH (08:17)
[2017-04-12] MEDS: methylPREDNISolone 125 MG* 2 ML VIAL IV SCH (08:17)
--- NOTE | 2017-05-09 22:11 | DS ---
DISCHARGE SUMMARY: DATE OF ADMISSION: 04/10/17 DATE OF DISCHARGE: 04/12/17 HISTORY: Nicole Conn is a 56-year-old female with a history of poorly differentiated carcinoma of unknown primary. For details, please see my consultation note for prior admission. She was recently hospitalized on through 03/29/17 with severe shortness of breath after her first dose of second line therapy with pembrolizumab. She was found to have pseudomonas in her sputum and was treated with course of antibiotics. There was a question of pneumonitis, related either to infection or to prior pembrolizumab. She received her second dose of pembrolizumab 3 days prior to this admission. She developed marked increase shortness of breath despite being on 50% oxygen at 6 to 8 L per trach mask. O2 saturations have dipped down into the low 70s and she presented to the emergency room with severe shortness of breath. HOSPITAL COURSE: This seemed similar to her prior hospitalization of last month. Possibilities of this being related to her pembrolizumab versus infection versus progressive carcinoma. A decision was made to treat her with high dose steroid despite the fact that this could reduce the likelihood of her immunotherapy being affective. Solu-Medrol 60 mg IV q.8 hours. Repeat sputum cultures were obtained. Xopenex inhalers. Over the next 48 hours, the patient' s breathing improved significantly and she was able to be discharged to home back on her prior dose of oxygen and also on steroids at 30 of prednisone bid. Antibiotics discontinued Decision on further therapy will depend on results of an upcoming CT scan Discharge diagnosis: Pneumonitis, possible secondary to medication and less likely infectious Carcinoma of unknown primary Tracheostomy status Oxygen dependent Meds at discharge are the same as on admission except with the addition of steroids as above [id number]/CPS #: [id number] MTDD
== END 2017-04-12 11:34 | disposition home or self-care (01) | DRG 144 ==
LOC: ED 10:42 → MEDTELE 15:06
PROVIDERS: ADMIT Internal Medicine Hematology & Oncology; ATTEND Internal Medicine Hematology & Oncology
DX: R06.09 Other forms of dyspnea (principal); C78.00 Secondary malignant neoplasm of unspecified lung; C78.7 Secondary malignant neoplasm of liver and intrahepatic bile duct; C79.51 Secondary malignant neoplasm of bone; C73 Malignant neoplasm of thyroid gland; B99.9 Unspecified infectious disease; C79.70 Secondary malignant neoplasm of unspecified adrenal gland; T50.995A Adverse effect of other drugs, medicaments and biological substances, initial encounter; X58.XXXA Exposure to other specified factors, initial encounter; G47.33 Obstructive sleep apnea (adult) (pediatric); E78.5 Hyperlipidemia, unspecified; F41.9 Anxiety disorder, unspecified; R20.0 Anesthesia of skin; E66.9 Obesity, unspecified; Z68.39 Body mass index [BMI] 39.0-39.9, adult; Z79.891 Long term (current) use of opiate analgesic; Z79.899 Other long term (current) drug therapy; Z80.3 Family history of malignant neoplasm of breast; Z87.891 Personal history of nicotine dependence; Y92.009 Unspecified place in unspecified non-institutional (private) residence as the place of occurrence of the external cause
CPT/HCPCS: 36415; 70470; 71275; 80053; 83605; 83880; 84484; 85025; 87070; 87077; 87186; 87205; 93005; 93306; 94640; 94760; 99223; 99233; 99238; A9270-GY; J1650; J2405; J2930; Q9967

== ENCOUNTER 2017-04-20 20:31 | Inpatient (IN) | payer BC ==
[2017-04-20] MEDS ORDERED: Albuterol/Ipratropium NEB.SOL* Albuterol 2.5 MG/Ipratropium 0.5 MG 3 ML INH ONE ×2 (20:36→20:37)
--- NOTE | 2017-04-20 20:38 | ED ---
Aida Barbosa Alfonso, scribed for Karmen Fierro MD on 04/20/17 at 2037 . Shortness of Breath - HPI Summary HPI Summary: This patient is a 56 year old F BIBA to [facility] with a chief complaint of SOB since earlier today. The CC is described as uncomfortable breathing but has no pain. Symptoms aggravated and alleviated by nothing. Patient reports burping, productive cough, and wheezing. Patient denies fever, CP, diaphoresis, recent weight gain, and loss of appetite. Pt with complex med history including aggressive thyroid cancer and is currently on immunotherapy. Pt has a tracheostomy and in oxygen at home. Pt was recently hospitalized with SOB -responded to prednisone - completed yesterday. Pt was found by EMS with sats 70s. Improved to upper 80s with 100% oxygen Patients medication reviewed this visit. - History of Current Complaint Chief Complaint: EDShortnessOfBreath Time Seen by Provider: 04/20/17 20:36 Hx Obtained From: Patient Onset/Duration: Sudden Onset, Lasting Hours - earlier today, Still Present Timing: Constant Current Severity: Moderate Aggrevating Factors: Nothing Alleviating Factors: Nothing Associated Signs & Symptoms: Cough (Productive), Wheezing - Allergy/Home Medications Allergies/Adverse Reactions: Allergies Allergy/AdvReac Type Severity Reaction Status Date / Time No Known Allergies Allergy Verified 12/24/16 12:15 PMH/Surg Hx/FS Hx/Imm Hx Previously Healthy: Yes Endocrine/Hematology History: Reports: Hx Anemia - HISTORY OF IN THE PAST Denies: Hx Diabetes, Hx Thyroid Disease Cardiovascular History: Reports: Hx Congestive Heart Failure Denies: Hx Hypertension, Hx Pacemaker/ICD, Other Cardiovascular Problems/ Disorders Respiratory History: Reports: Hx Sleep Apnea, Other Respiratory Problems/ Disorders - respiratory failure with trach placement s/p thyroid CA Denies: Hx Asthma, Hx Chronic Obstructive Pulmonary Disease (COPD) GI History: Denies: Hx Ulcer, Other GI Disorders History: Reports: Other Problems/Disorders - incontinence Denies: Hx Renal Disease Musculoskeletal History: Denies: Other Musculoskeletal History Sensory History: Reports: Hx Contacts or Glasses Denies: Hx Hearing Aid Opthamlomology History: Reports: Hx Contacts or Glasses Neurological History: Denies: Other Neuro Impairments/Disorders Psychiatric History: Reports: Hx Anxiety - ON MEDS, Hx Depression - ON MEDS Denies: Hx Panic Disorder - Cancer History Cancer Type, Location and Year: [place] Thyroid tumor with mets to bone lungs liver and adrenal Hx Chemotherapy: Yes Hx Radiation Therapy: Yes - Surgical History Surgery Procedure, Year, and Place: [facility], [facility] [place]. tubal , 1989, [facility]. tubal ligation, 1983 , [facility] [place]. benign breast biopsy left, 1992, [facility]AL [facility]ORD SURGERY 12/12/15 & - THROPLASTY W/ GORE PATCH. Hx Anesthesia Reactions: No - Immunization History Date of Tetanus Vaccine: UTD Date of Influenza Vaccine: UTD Infectious Disease History: Denies: Hx Clostridium Difficile, Hx Hepatitis, Hx Human Immunodeficiency Virus (HIV), Hx of Known/Suspected MRSA, Hx Shingles, Hx Tuberculosis, History Other Infectious Disease - Family History Known Family History: Positive: Hypertension, Other - breast CA - Social History Alcohol Use: None Alcohol Amount: 1 PER MONTH Substance Use Type: Reports: None Smoking Status (MU): Former Smoker Type: Cigarettes Amount Used/How Often: PACK A DAY Have You Smoked in the Last Year: No Review of Systems Constitutional: Negative Eyes: Negative ENT: Negative Cardiovascular: Negative Positive: Shortness Of Breath, Cough - productive cough Positive: Other - burping; NEGATIVE: weight gain and loss of appetite Genitourinary: Negative Musculoskeletal: Negative Skin: Negative Neurological: Negative Psychological: Normal All Other Systems Reviewed And Are Negative: Yes Physical Exam Triage Information Reviewed: Yes Vital Signs On Initial Exam: Initial Vitals BP 123/72 04/20/17 20:36 Vital Signs Reviewed: Yes Appearance: Positive: Ill-Appearing, Pain Distress Skin: Positive: Warm, Skin Color Reflects Adequate Perfusion, Dry Head/Face: Positive: Normal Head/Face Inspection Eyes: Positive: Normal, EOMI, ERROL ENT: Positive: Normal ENT inspection, Pharynx normal, TMs normal Neck: Positive: Supple, Nontender Respiratory/Lung Sounds: Positive: Wheezes, Other - Pt with trach on 100% ox, diffuse wheeze, cough + BS throughout Cardiovascular: Positive: Normal, RRR Abdomen Description: Positive: Nontender, No Organomegaly, Soft Bowel Sounds: Positive: Present Musculoskeletal: Positive: Normal Neurological: Positive: Normal, Alert, Oriented to Person Place, Time Psychiatric: Positive: Normal AVPU Assessment: Alert - Ranger Coma Scale Best Eye Response: 4 - Spontaneous Best Motor Response: 6 - Obeys Commands Best Verbal Response: 5 - Oriented Diagnostics - Laboratory Result Diagrams: 04/23/17 06:00 04/23/17 05:55 Lab Statement: Any lab studies that have been ordered have been reviewed, and results considered in the medical decision making process. - Radiology CXR Radiology Interpretation Completed By: Radiologist - 1. FINDINGS SUGGESTIVE OF CONGESTIVE HEART FAILURE AND/OR PNEUMONIA, UNCHANGED. 2. BILATERAL NODULAR PLEURAL THICKENING, UNCHANGED. - EKG 2044 Cardiac Rate: Tachycardia - 116 bpm EKG Rhythm: Sinus Tachycardia EKG Interpretation: NAC Re-Evaluation - Re-Evaluation First Eval Change: Improved - Pt markedly improved following nebs, steroids, oxygen. Pt states feeling better. Pt placed on humidified warmed oxygen by resp - has previously aided p - will admit Course/Dx - Course Assessment/Plan: Pt with complex med history with progressive hypoxia, cough and wheeze. will aggressively tx with nebs, oxygen, steroids. imaging, labs. ekg - Diagnoses Provider Diagnoses: Hypoxia, Wheeze - Physician Notifications Discussed Care of Patient With: Kyler Velázquez Time Discussed With Above Provider: 21:40 Instructed by Provider To: Other - Consulted Dr. Velázquez (hospitalist) who agrees to admit pt to ICU. Discharge - Discharge Plan Condition: Stable Disposition: ADMITTED TO [facility] Discharge Disposition Comment: ICU The documentation as recorded by the Aida bass Alfonso accurately reflects the service I personally performed and the decisions made by , Karmen Fierro MD.
[2017-04-20 21:09] LABS: Hematocrit 35 % (35-47); Hemoglobin 11.2 g/dl (12.0-16.0); Mean Corpuscular HGB Conc 32 g/dl (31-36); Mean Corpuscular Hemoglobin 28 pg (27-31); Mean Corpuscular Volume 85 fL (80-97); Mean Platelet Volume 9 um3 (7.4-10.4); Red Blood Count 4.09 10^6/ul (4.0-5.4); Red Cell Distribution Width 21 % (10.5-15); White Blood Count 10.2 10^3/ul (3.5-10.8)
[2017-04-20] MEDS ORDERED: methylPREDNISolone 125 MG* 2 ML VIAL IV ONE (21:12)
[2017-04-20 21:26] LABS: Albumin 3.5 g/dL (3.2-5.2); BUN/Creatinine Ratio 17.6 (8-20); Calcium 10.1 mg/dL (8.6-10.3); EGFR African American 88.3 (>60); EGFR Non-African American 68.7 (>60); Globulin 3.7 g/dL (2-4); Magnesium 2.1 mg/dL (1.9-2.7); Potassium 3.3 mmol/L (3.5-5.0); Total Bilirubin 0.6 mg/dL (0.2-1.0); Total Protein 7.2 g/dL (6.4-8.9)
[2017-04-20 21:28] LABS: Troponin I 0.01 ng/mL (<0.04)
--- NOTE | 2017-04-20 21:36 | RAD ---
INDICATION: Shortness of breath cough and hypoxia. COMPARISON: Comparison is made with a prior chest x-ray study from March 25, [address] of the chest from April 10, 2017. TECHNIQUE: A portable view of the chest was obtained. FINDINGS: There is a tracheostomy tube present. The heart is within normal limits in size. There is prominence of the interstitial markings and bilateral patchy infiltrates which appear similar to the prior exam. There are small bilateral pleural effusions and bilateral nodular pleural thickening which is unchanged. IMPRESSION: 1. FINDINGS SUGGESTIVE OF CONGESTIVE HEART FAILURE AND/OR PNEUMONIA, UNCHANGED. 2. BILATERAL NODULAR PLEURAL THICKENING, UNCHANGED..
--- NOTE | 2017-04-20 23:20 | HP ---
H&P (Free Text) History and Physical: PCP: Reyes Chilel MD Oncology: Reyes Trujillo MD Date/Time of Evaluation: 04/20/2017 2250 CC: SOB HPI: Mrs Conn is a 56YO female HX widely metastatic thyroid CA presenting reporting rapid onset of SOB starting around 1600 which did not improve with escalating oxygen supply or albuterol nebulizer (which she was unable to finish 2nd SOB) prompting her to present for evaluation. She did have some chest tightness, but denies F/C, cough, congestion, malaise, or other issues. Bowels and bladder have been normal. PMedHx cancer of unknown primary widely metastatic to thyroid, lungs, liver, adrenal glands, hips, jaw... vocal cord palsy JAISON on CPAP benign neoplasm of meninges HLD anxiety Ambulatory Orders Nursing to reconcile. FLUoxetine CAP* [Prozac CAP*] 40 mg PO QAM 09/28/14 clonazePAM TAB(*) [Klonopin TAB(*)] 0.5 mg PO BEDTIME PRN 09/28/14 oxyCODONE TAB* [Roxycodone TAB 5 mg*] 5 mg PO Q4H PRN 12/24/16 Ibuprofen TAB* [Advil TAB*] 400 mg PO Q6H PRN 03/13/17 OXcarbazepine TAB(*) [Trileptal 300 mg TAB(*)] 300 mg PO BID 03/13/17 fentaNYL PATCH 25 MCG/HR* [Duragesic PATCH 25 Mcg/Hr*] 25 mcg TRANSDERM Q72H Potassium Chlor TAB* [Potassium Chlor TAB 20 MEQ*] 20 meq PO DAILY #30 tab 03/29 Magnesium Oxide TAB* [MagOx 400 TAB*] 400 mg PO DAILY 04/10/17 Prednisone [Deltasone] 20 mg PO BID 5 Days 04/12/17 Allergies No Known Allergies Allergy (Verified 12/24/16 12:15) PSurgHx thyroid surgery x2 tracheostomy tubal ligation hysterectomy SocHx: quit smoking ~10 years ago, no alcohol or recreational drugs; lives with her ; DNR/I code status, MOLST filled out FamHx: positive for breast CA, lymphosarcoma, CAD, & cirrhosis ROS: as above, otherwise reviewed and all were negative Constitutional: NAD, normally developed, overweight vitals: Vital Signs Temp 37.2 C 04/20/17 20:37 Pulse 112 04/20/17 22:30 Resp 26 04/20/17 22:30 BP 106/66 04/20/17 22:30 Pulse Ox 98 04/20/17 22:30 Intake & Output 04/19/17 04/20/17 04/20/17 23:59 11:59 23:59 Weight 68.039 kg HEENM: atraumatic; sclera/conjunctiva: non-icteric/clear; blephara: normal; hearing: ; oropharynx: Neck: soft tissue: non-tender; healthy appearing tracheal stoma on VapoTherm Pulmonary: diminished but clear to auscultation bilaterally, fair aeration, no accessory muscle use CV: RR/RR, normal S1S2, no carotid bruit, no jugular venous distention, 2+ B DP/ PT, no edema Abdominal: soft, non-distended, non-tender, no rebound/guarding/rigidity, normoactive bowel sounds, no hepatosplenomegaly or masses, no costovertebral angle tenderness Musculoskeletal: general: grossly intact; gait: stable Integumental: normal appearance and texture Psychiatric orientation: AA&O to PPS affect: calm mood: cooperative eye contact: good content: reliable memory: intact responses: timely insight: good Testing: Lab Results 04/20/17 04/20/17 04/20/17 Range/Units 20:47 20:47 20:47 WBC 10.2 (3.5-10.8) 10^3/ul RBC 4.09 (4.0-5.4) 10^6/ul Hgb 11.2 L (12.0-16.0) g/dl Hct 35 (35-47) % MCV 85 (80-97) fL MCH 28 (27-31) pg MCHC 32 (31-36) g/dl RDW 21 H (10.5-15) % Plt Count 392 (150-450) 10^3/ul MPV 9 (7.4-10.4) um3 Neut % (Auto) 84.6 H (38-83) % Lymph % (Auto) 6.3 L (25-47) % Tift % (Auto) 7.4 (1-9) % Eos % (Auto) 1.0 (0-6) % Baso % (Auto) 0.7 (0-2) % Absolute Neuts (auto) 8.7 H (1.5-7.7) 10^3/ul Absolute Lymphs (auto) 0.6 L (1.0-4.8) 10^3/ul Absolute Monos (auto) 0.8 (0-0.8) 10^3/ul Absolute Eos (auto) 0.1 (0-0.6) 10^3/ul Absolute Basos (auto) 0.1 (0-0.2) 10^3/ul Absolute Nucleated RBC 0 10^3/ul Nucleated RBC % 0 Sodium 136 (133-145) mmol/L Potassium 3.3 L (3.5-5.0) mmol/L Chloride 97 L (101-111) mmol/L Carbon Dioxide 30 (22-32) mmol/L Anion Gap 9 (2-11) mmol/L BUN 15 (6-24) mg/dL Creatinine 0.85 (0.51-0.95) mg/dL Est GFR ( Amer) 88.3 (>60) Est GFR (Non-Af Amer) 68.7 (>60) BUN/Creatinine Ratio 17.6 (8-20) Glucose 122 H (70-100) mg/dL Lactic Acid 1.4 (0.5-2.0) mmol/L Calcium 10.1 (8.6-10.3) mg/dL Magnesium 2.1 (1.9-2.7) mg/dL Total Bilirubin 0.60 (0.2-1.0) mg/dL AST 51 H (13-39) U/L ALT 59 H (7-52) U/L Alkaline Phosphatase 193 H (34-104) U/L Total Creatine Kinase 16 (10-223) U/L Troponin I 0.01 (<0.04) ng/mL B-Natriuretic Peptide ( - 100) pg/mL Total Protein 7.2 (6.4-8.9) g/dL Albumin 3.5 (3.2-5.2) g/dL Globulin 3.7 (2-4) g/dL Albumin/Globulin Ratio 0.9 L (1-3) 04/20/ Range/Units 20:47 WBC (3.5-10.8) 10^3/ul RBC (4.0-5.4) 10^6/ul Hgb (12.0-16.0) g/dl Hct (35-47) % MCV (80-97) fL MCH (27-31) pg MCHC (31-36) g/dl RDW (10.5-15) % Plt Count (150-450) 10^3/ul MPV (7.4-10.4) um3 Neut % (Auto) (38-83) % Lymph % (Auto) (25-47) % Tift % (Auto) (1-9) % Eos % (Auto) (0-6) % Baso % (Auto) (0-2) % Absolute Neuts (auto) (1.5-7.7) 10^3/ul Absolute Lymphs (auto) (1.0-4.8) 10^3/ul Absolute Monos (auto) (0-0.8) 10^3/ul Absolute Eos (auto) (0-0.6) 10^3/ul Absolute Basos (auto) (0-0.2) 10^3/ul Absolute Nucleated RBC 10^3/ul Nucleated RBC % Sodium (133-145) mmol/L Potassium (3.5-5.0) mmol/L Chloride (101-111) mmol/L Carbon Dioxide (22-32) mmol/L Anion Gap (2-11) mmol/L BUN (6-24) mg/dL Creatinine (0.51-0.95) mg/dL Est GFR ( Amer) (>60) Est GFR (Non-Af Amer) (>60) BUN/Creatinine Ratio (8-20) Glucose (70-100) mg/dL Lactic Acid (0.5-2.0) mmol/L Calcium (8.6-10.3) mg/dL Magnesium (1.9-2.7) mg/dL Total Bilirubin (0.2-1.0) mg/dL AST (13-39) U/L ALT (7-52) U/L Alkaline Phosphatase (34-104) U/L Total Creatine Kinase (10-223) U/L Troponin I (<0.04) ng/mL B-Natriuretic Peptide 68 ( - 100) pg/mL Total Protein (6.4-8.9) g/dL Albumin (3.2-5.2) g/dL Globulin (2-4) g/dL Albumin/Globulin Ratio (1-3) ECG, personally reviewed: sinus tachycardia rate 116, poor R-wave progression, no ischemia CXR, personally reviewed: IMPRESSION: 1. FINDINGS SUGGESTIVE OF CONGESTIVE HEART FAILURE AND/OR PNEUMONIA, UNCHANGED. 2. BILATERAL NODULAR PLEURAL THICKENING, UNCHANGED. Impression: 56F presenting clinically as a COPD exacerbation DIAGNOSIS & PLAN Primary acute respiratory failure : suspect 2nd mix of COPD exacerbation & progressive metastatic disease : B pneumonia & drug-induced pneumonitis remain on the differential : recent work up for CHF was negative, BNP normal tonight : ICU monitoring : albuterol nebs : mometasone/formoterol : tiotropium : IV methylprednisolone : guaifenesin : IV vancomycin, cefepime, & levofloxacin : blood & sputum CXs : NPO x/ meds : incentive spirometry : supplemental oxygen via VapoTherm : supportive care Secondary cancer of unknown primary : widely metastatic to thyroid, lungs, liver, adrenal glands, hips, jaw... : continue outpatient oncology follow up JAISON : continue home CPAP HLD : regular diet once taking PO anxiety : PRN alprazolam Admission Rational: inpatient for acute hypoxic respiratory failure requiring ICU monitoring and management; inappropriate for outpatient setting DVTp: heparin SQ & SCDs Code Status: full HCP: , Gustabo
[2017-04-20] MEDS ORDERED: Albuterol 2.5 MG/3 ML NEB.SOL* (0.083%) INH PRN (23:26)
[2017-04-20] MEDS ORDERED: Acetaminophen TAB* 325 MG PO PRN (23:26)
[2017-04-20] MEDS ORDERED: Ondansetron INJ* 2 MG/ML VIAL IV PRN (23:27)
[2017-04-21] MEDS ORDERED: Vancomycin(*) 1,250 MG in NS 0.9% 250 ML* 250 ML IVPB ONE (00:15)
[2017-04-21] MEDS ORDERED: fentaNYL PATCH 25 MCG/HR TRANSDERM SCH (01:45)
[2017-04-21] MEDS ORDERED: Cefepime(*) 1 GM in NS 0.9% 50 ML* 50 ML IVPB SCH (01:45)
[2017-04-21] MEDS ORDERED: clonazePAM TAB(*) 0.5 MG PO PRN (01:45)
[2017-04-21] MEDS ORDERED: fentaNYL PATCH 25 MCG/HR ONE (02:10)
[2017-04-21] MEDS ORDERED: oxyCODONE TAB* 5 MG TAB ONE (02:10)
[2017-04-21] MEDS ORDERED: clonazePAM TAB(*) 0.5 MG ONE (02:10)
[2017-04-21] MEDS: Albuterol 2.5 MG/3 ML NEB.SOL* (0.083%) INH SCH ×4 (02:23→20:02)
[2017-04-21] MEDS: Levofloxacin 750 MG IVPREMIX(* 750 MG/150 ML BAG IVPB SCH (03:14)
[2017-04-21 05:00] LABS: Hematocrit 33 % (35-47); Hemoglobin 10.9 g/dl (12.0-16.0); Mean Corpuscular HGB Conc 33 g/dl (31-36); Mean Corpuscular Hemoglobin 28 pg (27-31); Mean Corpuscular Volume 85 fL (80-97); Mean Platelet Volume 8 um3 (7.4-10.4); Red Cell Distribution Width 21 % (10.5-15); White Blood Count 7.4 10^3/ul (3.5-10.8)
[2017-04-21 05:32] LABS: BUN/Creatinine Ratio 16.3 (8-20); Calcium 9.9 mg/dL (8.6-10.3); EGFR African American 80.6 (>60); EGFR Non-African American 62.7 (>60); Potassium 3.5 mmol/L (3.5-5.0)
[2017-04-21] MEDS ORDERED: Vancomycin per Pharmacy* NOTE FOLLOW UP PRN (07:18)
[2017-04-21] MEDS: Omeprazole CAP* 20 MG PO SCH (07:22)
[2017-04-21] MEDS: methylPREDNISolone SOD 40 MG* 1 ML VIAL IV SCH ×3 (07:22→21:50)
[2017-04-21] MEDS: Heparin VIAL(*) 5000 UNITS/ML VIAL (FIVE THOUSAND) SUBCUT SCH ×3 (07:22→21:50)
[2017-04-21] MEDS: fentaNYL Patch Check Q Shift 1 NOTE SCH ×2 (07:28→19:18)
[2017-04-21] MEDS: Docusate CAP* 100 MG PO SCH ×2 (07:44→21:04)
[2017-04-21] MEDS: oxyCODONE TAB* 5 MG TAB PO PRN ×3 (07:44→21:05)
[2017-04-21] MEDS: guaiFENesin ER TAB 600 MG PO SCH ×2 (07:44→21:05)
[2017-04-21] MEDS: Mometasone/Formoter 200/5 MDI INH SCH ×2 (08:19→20:03)
[2017-04-21] MEDS ORDERED: Vancomycin(*) 1,000 MG in NS 0.9% 250 ML* 250 ML IVPB SCH (12:00)
[2017-04-21] MEDS: Tiotropium CAP.INH* CAP.INH/18 MCG INH SCH (15:19)
[2017-04-21] MEDS: Spiriva Inhaler DEVICE* 1 EACH DEVICE INH SCH (15:36)
[2017-04-21] MEDS: Cefepime(*) 2 GM in NS 0.9% 50 ML* 50 ML IVPB SCH (16:04)
[2017-04-21] MEDS: CMCS: Melatonin (NF) 3 MG TAB PO PRN (21:05)
[2017-04-21] MEDS: clonazePAM TAB(*) 0.5 MG PO PRN (21:58)
[2017-04-22] MEDS: oxyCODONE TAB* 5 MG TAB PO PRN ×4 (01:10→22:17)
[2017-04-22] MEDS: Levofloxacin 750 MG IVPREMIX(* 750 MG/150 ML BAG IVPB SCH (01:10)
[2017-04-22] MEDS: Albuterol 2.5 MG/3 ML NEB.SOL* (0.083%) INH SCH ×2 (02:05→07:15)
[2017-04-22] MEDS: Cefepime(*) 2 GM in NS 0.9% 50 ML* 50 ML IVPB SCH (03:28)
[2017-04-22] MEDS: Omeprazole CAP* 20 MG PO SCH (05:12)
[2017-04-22] MEDS: methylPREDNISolone SOD 40 MG* 1 ML VIAL IV SCH ×3 (05:13→22:22)
[2017-04-22] MEDS: Heparin VIAL(*) 5000 UNITS/ML VIAL (FIVE THOUSAND) SUBCUT SCH ×3 (05:13→22:18)
[2017-04-22 05:49] LABS: Hematocrit 30 % (35-47); Mean Corpuscular HGB Conc 33 g/dl (31-36); Mean Corpuscular Hemoglobin 28 pg (27-31); Mean Corpuscular Volume 85 fL (80-97); Mean Platelet Volume 8 um3 (7.4-10.4); Red Blood Count 3.58 10^6/ul (4.0-5.4); Red Cell Distribution Width 21 % (10.5-15)
[2017-04-22 06:03] LABS: BUN/Creatinine Ratio 18.9 (8-20); Calcium 9.9 mg/dL (8.6-10.3); EGFR African American 77.7 (>60); EGFR Non-African American 60.4 (>60); Potassium 3.6 mmol/L (3.5-5.0)
[2017-04-22] MEDS: Tiotropium CAP.INH* CAP.INH/18 MCG INH SCH (07:15)
[2017-04-22] MEDS: Mometasone/Formoter 200/5 MDI INH SCH ×2 (07:15→19:52)
[2017-04-22] MEDS: fentaNYL Patch Check Q Shift 1 NOTE SCH ×2 (07:39→19:17)
[2017-04-22] MEDS: Docusate CAP* 100 MG PO SCH ×2 (08:48→22:15)
[2017-04-22] MEDS: guaiFENesin ER TAB 600 MG PO SCH ×2 (08:48→22:17)
[2017-04-22] MEDS: Spiriva Inhaler DEVICE* 1 EACH DEVICE INH SCH (09:00)
--- NOTE | 2017-04-22 09:42 | PN ---
Progress Note - Progress Note Date of Service: 04/22/17 SOAP: Subjective: feels much better than admission. successfully titrating down O2. no BM x 2 dys but this is normal for her. no nausea or vomiting. eating well. Objective: Vital Signs Temp Pulse Resp BP Pulse Ox 97.6 F 89 14 125/59 94 04/22/17 08:00 04/22/17 08:00 04/22/17 08:00 04/22/17 08:00 04/22/17 08:00 sitting up in NAD, breathing comfortably perr eomi op moist, no thrush CTA bl s1 s2 nl soft nt +bs no LE edema A+O x 3, nonfocal neurological exam skin intact nl PAUL Laboratory Results - last 24 hr 04/22/17 04/22/17 05:20 05:20 WBC 7.0 RBC 3.58 L Hgb 10.0 L Hct 30 L MCV 85 MCH 28 MCHC 33 RDW 21 H Plt Count 352 MPV 8 Neut % (Auto) 88.4 H Lymph % (Auto) 6.1 L [place] % (Auto) 5.2 Eos % (Auto) 0.1 Baso % (Auto) 0.2 Absolute Neuts (auto) 6.2 Absolute Lymphs (auto) 0.4 L Absolute Monos (auto) 0.4 Absolute Eos (auto) 0 Absolute Basos (auto) 0 Absolute Nucleated RBC 0 Nucleated RBC % 0.1 Sodium 139 Potassium 3.6 Chloride 98 L Carbon Dioxide 33 H Anion Gap 8 BUN 18 Creatinine 0.95 Est GFR ( Amer) 77.7 Est GFR (Non-Af Amer) 60.4 BUN/Creatinine Ratio 18.9 Glucose 91 Calcium 9.9 Acetaminophen (Tylenol Tab*) 650 mg PO Q6H PRN PRN Reason: FEVER/PAIN Albuterol (Ventolin 2.5 Mg/3 Ml Neb.Maye*) 2.5 mg INH Q2H PRN PRN Reason: SOB/WHEEZING Albuterol (Ventolin 2.5 Mg/3 Ml Neb.Maye*) 2.5 mg INH [id number] AWAKE [facility] Last Admin: 04/22/17 07:15 Dose: 2.5 mg Clonazepam (Klonopin Tab(*)) 0.5 mg PO BEDTIME PRN PRN Reason: SLEEP Last Admin: 04/21/17 21:58 Dose: 0.25 mg Device (Tiotropium Inhaler Device*) 1 each INH 0900 [facility] Last Admin: 04/21/17 15:36 Dose: Not Given Docusate Sodium (Colace Cap*) 200 mg PO BID [facility] Last Admin: 04/22/17 08:48 Dose: 200 mg Fentanyl (Duragesic Patch 25 Mcg/Hr*) 25 mcg TRANSDERM Q72H [facility] Last Admin: 04/21/17 03:14 Dose: Not Given Fluoxetine HCl (Prozac Cap*) 40 mg PO DAILY [facility] Guaifenesin (Mucinex*) 1,200 mg PO BID [facility] Last Admin: 04/22/17 08:48 Dose: 1,200 mg Heparin Sodium (Porcine) (Heparin Vial(*)) 5,000 units SUBCUT Q8HR [facility] Last Admin: 04/22/17 05:13 Dose: 5,000 units Levofloxacin/Dextrose (Levaquin 750 Mg Ivpremix(*)) 750 mg in 150 mls @ 100 mls /hr IVPB Q24H [facility] Last Admin: 04/22/17 01:10 Dose: 100 mls/hr Melatonin (Melatonin (Nf)) 3 mg PO BEDTIME PRN; Protocol PRN Reason: Sleep Last Admin: 04/21/17 21:05 Dose: 3 mg Methylprednisolone Sodium Succinate (Solu-Medrol 40 Mg) 40 mg IV Q8H [facility] Last Admin: 04/22/17 05:13 Dose: 40 mg Mometasone Furoate/Formoterol Fumar (Dulera 200/5 Mdi*) 2 puff INH BID [facility] Last Admin: 04/22/17 07:15 Dose: 2 puff Omeprazole (Prilosec Cap*) 20 mg PO DAILY@0600 [facility] Last Admin: 04/22/17 05:12 Dose: 20 mg Ondansetron HCl (Zofran Inj*) 4 mg IV Q6H PRN PRN Reason: NAUSEA Oxcarbazepine (Trileptal Tab(*)) 300 mg PO BID [facility] Oxycodone HCl (Roxycodone Tab*) 5 mg PO Q4H PRN PRN Reason: PAIN Last Admin: 04/22/17 05:12 Dose: 5 mg Pharmacy Profile Note (Fentanyl Patch Check Q Shift) 1 note N/A 0700,1900 [facility] Last Admin: 04/22/17 07:39 Dose: 1 note Tiotropium [place] (Spiriva Cap.Inh*) 1 cap INH DAILY [facility] Last Admin: 04/22/17 07:15 Dose: 1 cap Assessment: 56 yo F w metastatic cancer of unknown primary on palliative pembrolizumab sp cycle 3 2 weeks ago admitted with respiaratory decompensation after tapering off of steroids. She is markedly better on steroids and antibiotics. I suspect that the 1+ pseudomonas is colonization and not active PNA, however given her immunocompromise it is reasonable to continue levaquin PO and I will stop cefepime. Plan: -cont high dose steroids, will taper to PO once out of ICU -cont to taper down O2 with goal of O2 sats >85% on 8L trach mask to go back home -restaging scans next week, will defer to Dr. Trujillo/[facility] oncologist if she gets more immunotherapy with pneumonitis -cont DVT prophylaxis -DNR
[2017-04-22] MEDS ORDERED: Vancomycin Trough Check NOTE FOLLOW UP ONE (12:00)
[2017-04-22] MEDS: FLUoxetine CAP* 20 MG PO SCH (14:31)
[2017-04-22] MEDS: OXcarbazepine TAB(*) 300 MG PO SCH ×2 (14:39→22:26)
[2017-04-22] MEDS: clonazePAM TAB(*) 0.5 MG PO PRN (22:17)
[2017-04-22] MEDS: CMCS: Melatonin (NF) 3 MG TAB PO PRN (22:17)
[2017-04-23] MEDS: Levofloxacin 750 MG IVPREMIX(* 750 MG/150 ML BAG IVPB SCH (02:02)
[2017-04-23] MEDS: oxyCODONE TAB* 5 MG TAB PO PRN ×4 (02:10→22:34)
[2017-04-23] MEDS: Heparin VIAL(*) 5000 UNITS/ML VIAL (FIVE THOUSAND) SUBCUT SCH ×3 (05:41→22:35)
[2017-04-23] MEDS: methylPREDNISolone SOD 40 MG* 1 ML VIAL IV SCH ×3 (05:43→22:35)
[2017-04-23] MEDS: Omeprazole CAP* 20 MG PO SCH (05:44)
[2017-04-23 06:31] LABS: BUN/Creatinine Ratio 26.9 (8-20); EGFR African American 79.6 (>60); EGFR Non-African American 61.9 (>60)
[2017-04-23 07:11] LABS: Hematocrit 29 % (35-47); Hemoglobin 9.6 g/dl (12.0-16.0); Mean Corpuscular HGB Conc 33 g/dl (31-36); Mean Corpuscular Hemoglobin 28 pg (27-31); Mean Corpuscular Volume 85 fL (80-97); Mean Platelet Volume 8 um3 (7.4-10.4); Red Blood Count 3.39 10^6/ul (4.0-5.4); Red Cell Distribution Width 21 % (10.5-15); White Blood Count 6.2 10^3/ul (3.5-10.8)
[2017-04-23 07:17] LABS: Comments Flag Yes
[2017-04-23] MEDS: fentaNYL Patch Check Q Shift 1 NOTE SCH ×2 (07:17→18:46)
[2017-04-23 07:18] LABS: Add Diff/Slide Review? Slide Review Added
[2017-04-23] MEDS: FLUoxetine CAP* 20 MG PO SCH (07:44)
[2017-04-23] MEDS: guaiFENesin ER TAB 600 MG PO SCH ×2 (07:44→20:08)
[2017-04-23] MEDS: Docusate CAP* 100 MG PO SCH ×2 (07:44→20:08)
[2017-04-23] MEDS: OXcarbazepine TAB(*) 300 MG PO SCH ×2 (07:46→20:09)
[2017-04-23] MEDS: Tiotropium CAP.INH* CAP.INH/18 MCG INH SCH (07:55)
[2017-04-23] MEDS: Mometasone/Formoter 200/5 MDI INH SCH ×2 (07:55→20:11)
[2017-04-23] MEDS: Spiriva Inhaler DEVICE* 1 EACH DEVICE INH SCH (10:02)
--- NOTE | 2017-04-23 10:12 | PN ---
Progress Note - Progress Note Date of Service: 04/23/17 SOAP: Subjective: []Better today. Breathing at baseline, fine sitting still but SOB with any exertion. Similar to last week on steroids. Stopped steroids on Thursday and then did fine over weekend. Developed acute SOB on Thursday. No fevers, not in pain. Acetaminophen (Tylenol Tab*) 650 mg PO Q6H PRN PRN Reason: FEVER/PAIN Albuterol (Ventolin 2.5 Mg/3 Ml Neb.Maye*) 2.5 mg INH Q2H PRN PRN Reason: SOB/WHEEZING Clonazepam (Klonopin Tab(*)) 0.5 mg PO BEDTIME PRN PRN Reason: SLEEP Last Admin: 04/22/17 22:17 Dose: 0.5 mg Docusate Sodium (Colace Cap*) 200 mg PO BID [facility] Last Admin: 04/23/17 07:44 Dose: 200 mg Fentanyl (Duragesic Patch 25 Mcg/Hr*) 25 mcg TRANSDERM Q72H [facility] Last Admin: 04/21/17 03:14 Dose: Not Given Fluoxetine HCl (Prozac Cap*) 40 mg PO DAILY [facility] Last Admin: 04/23/17 07:44 Dose: 40 mg Guaifenesin (Mucinex*) 1,200 mg PO BID [facility] Last Admin: 04/23/17 07:44 Dose: 1,200 mg Heparin Sodium (Porcine) (Heparin Vial(*)) 5,000 units SUBCUT Q8HR [facility] Last Admin: 04/23/17 05:41 Dose: 5,000 units Levofloxacin/Dextrose (Levaquin 750 Mg Ivpremix(*)) 750 mg in 150 mls @ 100 mls /hr IVPB Q24H [facility] Last Admin: 04/23/17 02:02 Dose: 100 mls/hr Melatonin (Melatonin (Nf)) 3 mg PO BEDTIME PRN; Protocol PRN Reason: Sleep Last Admin: 04/22/17 22:17 Dose: 3 mg Methylprednisolone Sodium Succinate (Solu-Medrol 40 Mg) 40 mg IV Q8H [facility] Last Admin: 04/23/17 05:43 Dose: 40 mg Mometasone Furoate/Formoterol Fumar (Dulera 200/5 Mdi*) 2 puff INH BID [facility] Last Admin: 04/23/17 07:55 Dose: 2 puff Omeprazole (Prilosec Cap*) 20 mg PO DAILY@0600 [facility] Last Admin: 04/23/17 05:44 Dose: 20 mg Ondansetron HCl (Zofran Inj*) 4 mg IV Q6H PRN PRN Reason: NAUSEA Oxcarbazepine (Trileptal Tab(*)) 300 mg PO BID [facility] Last Admin: 04/23/17 07:46 Dose: 300 mg Oxycodone HCl (Roxycodone Tab*) 5 mg PO Q4H PRN PRN Reason: PAIN Last Admin: 04/23/17 02:10 Dose: 5 mg Pharmacy Profile Note (Fentanyl Patch Check Q Shift) 1 note N/A 0700,1900 [facility] Last Admin: 04/23/17 07:17 Dose: 1 note Tiotropium [place] (Spiriva Cap.Inh*) 1 cap INH DAILY [facility] Last Admin: 04/23/17 07:55 Dose: 1 cap Objective: [] Vital Signs Temp Pulse Resp BP Pulse Ox 96.8 F 89 22 118/74 98 04/23/17 08:00 04/23/17 10:00 04/23/17 10:00 04/23/17 10:00 04/23/17 10:00 HEENT: Tach, pale, no thrush. No JVD Diffuse crackles, no wheezing and poor air movement. BS on both sides. RRR S1S2 Positive BS, no HSM Ext - Has good pulses, warm but +1 edema Hgb 9.6 Glu up to 193 Assessment: []56 year old with recurrent progressive SOB. She was found to have pseudomonas in sputum, unclear if colonization. SOB occurred after steroid taper, similar to prior admission. 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 She has pulmonary compromise from cancer and may take very little to respiratory cause distress. It is not clear she can be steroid dependent. There is date for PD-1 blockade in face of chronic low dose steriods, though in setting of underlying autoimmune disease (Journal of Clinical Oncology 34, no. 15_suppl (December 2015) 2937-5722) and and effectiveness as partially but not fully compromised (equivalent 10-15 mg prednisone per day). Plan: []1. SOB. Will continue IV steroids today, Prednisone tomorrow. Continue Levaquin po. Will need to follow taper of steroids and stopping antibiotics to determine what agent is determinative. 2. Will transfer to floor today. 3. She has trach color, DNI. Continue respiratory support and oxygen on trach collar to sat > 88%. Currently stable on 8L 4. Re-staging with Dr. Trujillo after discharge and determine further therapy.
[2017-04-23] MEDS: clonazePAM TAB(*) 0.5 MG PO PRN (22:42)
[2017-04-23] MEDS: CMCS: Melatonin (NF) 3 MG TAB PO PRN (22:51)
[2017-04-24] MEDS: Levofloxacin 750 MG IVPREMIX(* 750 MG/150 ML BAG IVPB SCH (02:19)
[2017-04-24 05:20] LABS: Hematocrit 29 % (35-47); Hemoglobin 9.6 g/dl (12.0-16.0); Mean Corpuscular HGB Conc 33 g/dl (31-36); Mean Corpuscular Hemoglobin 28 pg (27-31); Mean Corpuscular Volume 85 fL (80-97); Mean Platelet Volume 8 um3 (7.4-10.4); Red Cell Distribution Width 21 % (10.5-15); White Blood Count 4.8 10^3/ul (3.5-10.8)
[2017-04-24 05:33] LABS: Albumin 3.2 g/dL (3.2-5.2); BUN/Creatinine Ratio 25.3 (8-20); Calcium 9.6 mg/dL (8.6-10.3); EGFR Non-African American 66.9 (>60); Globulin 3.1 g/dL (2-4); Magnesium 2.1 mg/dL (1.9-2.7); Potassium 3.8 mmol/L (3.5-5.0); Total Bilirubin 0.2 mg/dL (0.2-1.0); Total Protein 6.3 g/dL (6.4-8.9)
[2017-04-24] MEDS ORDERED: fentaNYL PATCH 25 MCG/HR TRANSDERM SCH (06:00)
[2017-04-24] MEDS: Omeprazole CAP* 20 MG PO SCH (06:07)
[2017-04-24] MEDS: methylPREDNISolone SOD 40 MG* 1 ML VIAL IV SCH (06:07)
[2017-04-24] MEDS: Heparin VIAL(*) 5000 UNITS/ML VIAL (FIVE THOUSAND) SUBCUT SCH ×3 (06:08→21:55)
[2017-04-24] MEDS: fentaNYL Patch Check Q Shift 1 NOTE SCH ×2 (06:48→18:29)
[2017-04-24] MEDS: Docusate CAP* 100 MG PO SCH ×2 (07:30→21:53)
[2017-04-24] MEDS: guaiFENesin ER TAB 600 MG PO SCH ×2 (07:30→21:55)
[2017-04-24] MEDS: FLUoxetine CAP* 20 MG PO SCH (07:30)
[2017-04-24] MEDS: OXcarbazepine TAB(*) 300 MG PO SCH ×2 (07:30→21:51)
[2017-04-24] MEDS: Mometasone/Formoter 200/5 MDI INH SCH ×2 (08:14→20:18)
[2017-04-24] MEDS: Tiotropium CAP.INH* CAP.INH/18 MCG INH SCH (08:14)
[2017-04-24] MEDS ORDERED: Senna TAB PO PRN (09:51)
[2017-04-24] MEDS: oxyCODONE TAB* 5 MG TAB PO PRN ×2 (14:35→21:52)
[2017-04-24] MEDS ORDERED: clonazePAM TAB(*) 0.5 MG PO ONE (15:00)
[2017-04-24] MEDS: predniSONE TAB* 10 MG PO SCH (21:51)
[2017-04-24] MEDS: clonazePAM TAB(*) 0.5 MG PO PRN (21:52)
[2017-04-25] MEDS: Omeprazole CAP* 20 MG PO SCH (05:51)
[2017-04-25] MEDS: Heparin VIAL(*) 5000 UNITS/ML VIAL (FIVE THOUSAND) SUBCUT SCH ×2 (05:52→15:36)
[2017-04-25] MEDS: fentaNYL Patch Check Q Shift 1 NOTE SCH (07:31)
[2017-04-25] MEDS: guaiFENesin ER TAB 600 MG PO SCH (07:32)
[2017-04-25] MEDS: predniSONE TAB* 10 MG PO SCH (07:32)
[2017-04-25] MEDS: OXcarbazepine TAB(*) 300 MG PO SCH (07:32)
[2017-04-25] MEDS: Docusate CAP* 100 MG PO SCH (07:32)
[2017-04-25] MEDS: FLUoxetine CAP* 20 MG PO SCH (07:32)
--- NOTE | 2017-04-25 07:53 | DS ---
- Discharge Summary ADMIT DATE: 04/20/2017 DISCHARGE DATE: 04/25/2017 DISCHARGE DIAGNOSIS: 1. PNEUMONITIS 2. PNEUMONIA 3. METASTATIC CANCER OF UNKNOWN PRIMARY DISCHARGE MEDICATIONS: Home Medications Medication Instructions Recorded Confirmed Type FLUoxetine CAP* [Prozac CAP*] 40 mg PO QAM 09/28/14 04/10/17 History Ibuprofen TAB* [Advil TAB*] 400 mg PO Q6H PRN 03/13/17 04/10/17 History OXcarbazepine TAB(*) [Trileptal 300 mg PO BID 03/13/17 04/10/17 History 300 mg TAB(*)] Potassium Chlor TAB* [Potassium 20 meq PO DAILY #30 tab 03/29/17 04/10/17 Rx Chlor TAB 20 MEQ*] Magnesium Oxide TAB* [MagOx 400 400 mg PO DAILY 04/10/17 04/10/17 History TAB*] Docusate CAP* [Colace Cap*] 200 mg PO BID cap 04/25/17 Rx FLUoxetine CAP* [Prozac CAP*] 40 mg PO DAILY cap 04/25/17 Rx Levofloxacin TAB* [Levaquin 750 MG 750 mg PO DAILY #8 tab 04/25/17 Rx TAB*] Melatonin (NF) 3 mg PO BEDTIME PRN #0 tab 04/25/17 Rx Mometasone/Formoter 200/5 MDI* 2 puff INH BID ea 04/25/17 Rx [Dulera 200/5 MDI*] OXcarbazepine TAB(*) [Trileptal 300 mg PO BID tab 04/25/17 Rx 300 mg TAB(*)] Omeprazole CAP* [Prilosec CAP* 20 20 mg PO DAILY@0600 cap 04/25/17 Rx MG] Senna TAB* [Senokot TAB*] 2 tab PO BEDTIME PRN #0 tab 04/25/17 Rx Tiotropium CAP.INH* [Spiriva 1 cap INH DAILY cap.inh 04/25/17 Rx CAP.INH*] clonazePAM TAB(*) [Klonopin TAB(*)] 0.5 mg PO BEDTIME PRN #30 tab MDD 04/25/17 Rx 0.5 fentaNYL PATCH 25 MCG/HR* 25 mcg TRANSDERM Q72H patch MDD 25 04/25/17 Rx [Duragesic PATCH 25 Mcg/Hr*] guaiFENesin ER TAB [Mucinex*] 1,200 mg PO BID tab.er 04/25/17 Rx oxyCODONE TAB* [Roxycodone TAB 5 5 mg PO Q4H PRN #0 tab MDD 30 04/25/17 Rx mg*] predniSONE TAB* [Deltasone TAB*] 30 mg PO BID #180 tab 04/25/17 Rx DISCHARGE FOLLOW UP: Dr. Trujillo's office to call with imaging and follow up in next week to 10 days HOSPITAL COURSE: see full admit H+P but briefly 56 yo F w metastatic cancer of unknown primary involving her lungs who has recently been on treatment with palliative pembrolizumab and has now had 3 admissions for respiratory distress responsive to steroids and antibiotics. She did recently finish a steroid taper prior to presenting in respiratory distress on this admission. She markedly improved with high flow oxygen, steroids and antibiotics. She does grow pseudomonas in her sputum and it is difficult to ascertain if this is a colonizer or if she is actively infected and so she will be treated as if she is infected given her immunocompromised state. On discharge she was back to her baseline O2 requirements of 8L through her trach. She will go on 30 mg PO BID of prednisone with a planned taper as per Dr. Trujillo. She is due for restaging imaging this week, which will be arranged on Thursday. >30 mins spent on this discharge >50% in face to face counseling
[2017-04-25] MEDS: Mometasone/Formoter 200/5 MDI INH SCH (08:15)
[2017-04-25] MEDS: Tiotropium CAP.INH* CAP.INH/18 MCG INH SCH (08:15)
[2017-04-25] MEDS ORDERED: Levofloxacin TAB* 750 MG PO SCH (09:00)
[2017-04-25 09:22] VITALS: BP 111/71
== END 2017-04-25 17:10 | disposition home or self-care (01) | DRG 133 ==
LOC: ED 20:31 → ICU 23:23 → MEDTELE 04-23 14:20
PROVIDERS: ADMIT Hospitalist; ATTEND Internal Medicine Hematology & Oncology
DX: J96.01 Acute respiratory failure with hypoxia (principal); J18.9 Pneumonia, unspecified organism; Z93.0 Tracheostomy status; Z99.81 Dependence on supplemental oxygen; C78.00 Secondary malignant neoplasm of unspecified lung; C78.7 Secondary malignant neoplasm of liver and intrahepatic bile duct; C79.51 Secondary malignant neoplasm of bone; C79.70 Secondary malignant neoplasm of unspecified adrenal gland; I50.9 Heart failure, unspecified; F41.9 Anxiety disorder, unspecified; F32.9 Major depressive disorder, single episode, unspecified; Z90.710 Acquired absence of both cervix and uterus; Z98.51 Tubal ligation status; Z82.49 Family history of ischemic heart disease and other diseases of the circulatory system; Z87.891 Personal history of nicotine dependence; Z80.3 Family history of malignant neoplasm of breast; G47.33 Obstructive sleep apnea (adult) (pediatric); E78.5 Hyperlipidemia, unspecified; E66.3 Overweight; C80.1 Malignant (primary) neoplasm, unspecified; Z66 Do not resuscitate; Z79.52 Long term (current) use of systemic steroids; Z68.27 Body mass index [BMI] 27.0-27.9, adult
CPT/HCPCS: 36415; 71010; 80048; 80053; 82550; 83605; 83735; 83880; 84484; 85025; 85027; 87040; 87070; 87077; 87186; 87205; 87502; 87899; 93005; 94640; 94760; 99232; 99233; 99239; A9270-GY; J0692; J1644; J2920; J2930; J3370; J7512